=== PATIENT | female | born 1940 | race Caucasian/White ===

== ENCOUNTER 2018-02-10 09:02 | Emergency (ER) | payer OTHER, BC ==
[~2018-02-10] VITALS: Ht 167.6 cm; Wt 77.2 kg
[2018-02-10 09:05] VITALS: TEMP 36.7; Ht 167.6 cm; Wt 77.2 kg
--- NOTE | 2018-02-10 09:28 | EMERGENCY ROOM VISIT NOTE ---
History Report prepared by Kerwin: Gemma Oliver Under the Supervision of: Dr. Azael Crenshaw M.D. 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 She reports she was weeding her flower border and went to sit down on the concrete, but she misjudged her distance and sat hard on her butt. She states standing and walking worsens her pain. Pt has some left leg and left foot pain but denies hitting her head, LOC, numbness, nausea, vomiting, diarrhea, chest pain, or bleeding. She reports she has a history of severe arthritis. The patient states she cannot take any NSAIDS and does not want any opioid prescriptions. She states she took Tylenol earlier. Source of History: patient Onset: this morning Position: other (left hip) Associated Symptoms: No LOC, No chest pain, No nausea, No vomiting, No diarrhea, No numbness Note: Negative hitting her head or bleeding Review of Systems See HPI for pertinent positives and negatives. A total of ten systems were reviewed and were otherwise negative. Past Medical & Surgical Medical Problems: (1) No significant past medical history Family History No pertinent family history No pertinent family history Social History Smoking Status: Never Smoker Smokeless Tobacco Use: No Housing Status: lives alone Occupation Status: retired Current/Historical Medications Scheduled Acetaminophen (Tylenol Arthritis Ext Rel), 650 MG PO 5XD Aspirin (Aspirin 81), 81 MG PO DAILY Coenzyme Q10 (Ubidecarenone) (Co Q-10), 200 MG PO DAILY Colestipol Hcl (Colestipol Hcl), 8 GM PO BID Hydrochlorothiazide (Hydrochlorothiazide), 12.5 MG PO DAILY Losartan Potassium (Cozaar), 100 MG PO DAILY Metoprolol Tartrate (Lopressor) (Lopressor), 12.5 MG PO BID [id number] Ethyl Esters ([place]-3), 2 CAP PO DAILY Allergies Coded Allergies: NSAIDs (Unverified Allergy, Severe, EXTREME HIVES, 02/10/18) TAKES TYLENOL ARTHRITIS DAILY WITH NO ISSUES Penicillins (Unverified Adverse Reaction, Intermediate, HIVES, 02/10/18) Statins (Unverified Adverse Reaction, Unknown, UNKNOWN, 02/10/18) Physical Exam Vital Signs Date Time Temp Pulse Resp B/P (MAP) Pulse Ox O2 Delivery O2 Flow Rate FiO2 02/10/18 10:39 71 20 154/54 98 02/10/18 09:05 36.7 66 20 194/72 97 Room Air Physical Exam Physical Exam GENERAL: She is oriented to person, place, and time. She appears well- developed and well-nourished. She does not appear distressed. HENT: Exam performed. Head: Normocephalic and atraumatic. Right Ear: External ear normal. No mastoid tenderness. Left Ear: External ear normal. No mastoid tenderness. Mouth/Throat: The oropharynx is clear and moist. No trismus in the jaw. No dental abscesses or uvula swelling. No oropharyngeal exudate or tonsillar abscesses. EYES: Conjunctivae and EOM are normal. Pupils are equal, round, and reactive to light. Right eye exhibits no discharge. Left eye exhibits no discharge. No scleral icterus. NECK: Normal range of motion. Neck supple. No JVD present. No spinous process tenderness present. No carotid bruit present. No rigidity. No tracheal deviation and normal range of motion present. No Brudzinski's sign and no Kernig 's sign noted. CV: Normal rate, regular rhythm, normal heart sounds and intact distal pulses. There is no peripheral edema. Palpable radial pulses bue. PULM/CHEST: Effort normal and breath sounds normal. No respiratory distress. No stridor. She has no wheezes. She has no rales. Chest Wall: She exhibits no tenderness. ABD: The abdomen is soft. Bowel sounds are normal. She has no distension. No mass is present. There is no tenderness. There is no rebound, no guarding, no Thompson's sign and no tenderness at McBurney's point. Rovsig negative MUSC/SKEL: Normal range of motion. There is no peripheral edema or deformity. Pain on palpation of her left sacral area. Pelvis is stable. LYMPH: No cervical adenopathy. NEURO: She is alert and oriented to person, place, and time. She has normal strength. No cranial nerve deficit or sensory deficit. Coordination and gait normal. GCS eye subscore is 4. GCS verbal subscore is 5. GCS motor subscore is 6. Cerebellar tests wnl. SKIN: Skin is warm and dry. She is not diaphoretic. PSYCH: She has a normal mood and affect. Behavior is normal. Judgment and thought content normal. Medical Decision & Procedures ER Provider Diagnostic Interpretation: Radiology results as stated below per my review and radiologist interpretation: PELVIS 1 OR 2 VIEW ROUTINE CLINICAL HISTORY: fall pain COMPARISON: None. DISCUSSION: The bones and joint spaces appear intact. There is no evidence of fracture, dislocation or bony disease. Moderate generalized degenerative changes throughout. IMPRESSION: Moderate degenerative change. No acute process. The above report was generated using voice recognition software. It may contain grammatical, syntax or spelling errors. Electronically signed by: Deven Mondragon M.D. 02/10/2018 10:08 AM L-SPINE MIN 4 VIEWS ROUTINE HISTORY: Trauma. Pain. fall COMPARISON: None. FINDINGS: There is no fracture. Mild scoliosis. Severe degenerative disc change throughout. Multiple vacuum joints. IMPRESSION: Significant degenerative change. No evidence for an acute bony abnormality. The above report was generated using voice recognition software. It may contain grammatical, syntax or spelling errors. Electronically signed by: Deven Mondragon M.D. 02/10/2018 10:07 AM Medications Administered Medications (Trade) Dose Ordered Sig/Erin Route Start Time Stop Time Status Last Admin Dose Admin Tramadol HCl (Ultram Tab) 50 mg NOW STAT PO 02/10/18 10:15 02/10/18 10:16 DC 02/10/18 10:38 50 MG ED Course 0915: The patient was evaluated in room B10. A complete history and physical exam was performed. 1015: Vital signs stable. Imaging within normal limits. Ordered Tramadol HCl 50 mg PO. DISCHARGE - Plan of care discussed with patient and questions answered. The patient was given both verbal and printed discharge instructions. The patient verbalized understanding and ability to comply. The patient is to seek outpatient follow up as noted in the discharge instructions. The patient verbalized understanding and ability to comply. The patient is discharged in stable condition. The patient was instructed to return for worsening symptoms. Medical Decision Vital signs stable. Imaging within normal limits. Ordered Tramadol HCl 50 mg PO. DISCHARGE - Plan of care discussed with patient and questions answered. The patient was given both verbal and printed discharge instructions. The patient verbalized understanding and ability to comply. The patient is to seek outpatient follow up as noted in the discharge instructions. The patient verbalized understanding and ability to comply. The patient is discharged in stable condition. The patient was instructed to return for worsening symptoms. Medication Reconcilliation Current Medication List: was personally reviewed by me Blood Pressure Screening Patient's blood pressure: Elevated blood pressure Blood pressure disposition: Elevated BP felt to be situational Impression Primary Impression: Hip pain Scribe Attestation The scribe's documentation has been prepared under my direction and personally reviewed by me in its entirety. I confirm that the note above accurately reflects all work, treatment, procedures, and medical decision making performed by me. The chart was completed utilizing [employer] Speech voice recognition software. Grammatical errors, random word insertions, pronoun errors, and incomplete sentences are an occasional consequence of this system due to software limitations, ambient noise, and hardware issues. Any formal questions or concerns about the content, text, or information contained within the body of this dictation should be directly addressed to the physician for clarification. Departure Information Dispostion Home / Self-Care Referrals No Doctor, Assigned (PCP) Forms HOME CARE DOCUMENTATION FORM, IMPORTANT VISIT INFORMATION, WORK / SCHOOL INSTRUCTIONS Patient Instructions My [facility] Problem Qualifiers Primary Impression: Hip pain Laterality: left Qualified Codes: M25.552 - Pain in left hip
[2018-02-10] MEDS ORDERED: COEN1CAP37 PO (09:50)
[2018-02-10] MEDS ORDERED: COLE1TAB5 PO (09:50)
[2018-02-10] MEDS ORDERED: ASPI-435 PO (09:50)
[2018-02-10] MEDS ORDERED: HYDR12.55 PO (09:50)
[2018-02-10] MEDS ORDERED: LOSA1TAB38 PO (09:50)
[2018-02-10] MEDS ORDERED: METO25TA56 PO (09:50)
[2018-02-10] MEDS ORDERED: OMEG-112 PO (09:50)
[2018-02-10] MEDS ORDERED: ACET1TAB84 PO (09:50)
--- NOTE | 2018-02-10 10:08 | DIAGNOSTIC IMAGING REPORT ---
L-SPINE MIN 4 VIEWS ROUTINE HISTORY: Trauma. Pain. fall COMPARISON: None. FINDINGS: There is no fracture. Mild scoliosis. Severe degenerative disc change throughout. Multiple vacuum joints. IMPRESSION: Significant degenerative change. No evidence for an acute bony abnormality. The above report was generated using voice recognition software. It may contain grammatical, syntax or spelling errors. Electronically signed by: Deven Mondragon M.D. 02/10/2018 10:07 AM Dictated Date/Time: 02/10/2018 10:07 AM
--- NOTE | 2018-02-10 10:09 | DIAGNOSTIC IMAGING REPORT ---
PELVIS 1 OR 2 VIEW ROUTINE CLINICAL HISTORY: fall pain COMPARISON: None. DISCUSSION: The bones and joint spaces appear intact. There is no evidence of fracture, dislocation or bony disease. Moderate generalized degenerative changes throughout. IMPRESSION: Moderate degenerative change. No acute process. The above report was generated using voice recognition software. It may contain grammatical, syntax or spelling errors. Electronically signed by: Deven Mondragon M.D. 02/10/2018 10:08 AM Dictated Date/Time: 02/10/2018 10:07 AM
[2018-02-10] MEDS ORDERED: TRAMADOL HCL 50 MG TAB PO STA (10:15)
[2018-02-10 10:39] VITALS: BP 154/54; PULSE 71; O2SAT 98
== END 2018-02-10 10:40 | disposition home or self-care (01) ==
LOC: C.EDB 09:03
DX: M25.552 Pain in left hip (principal); Z79.82 Long term (current) use of aspirin; Z88.6 Allergy status to analgesic agent; Z88.1 Allergy status to other antibiotic agents

== ENCOUNTER 2019-08-04 14:50 | Observation (INO) ==
--- NOTE | 2019-08-04 16:13 | XRay Report ---
SINGLE VIEW CHEST CLINICAL HISTORY: Atypical chest pain. FINDINGS: An AP, portable, upright chest radiograph is obtained. No prior studies are available for c omparison at the time of dictation. The cardiomediastinal silhouette is unremarkable. There is mild elevation of left hemidiaphragm with associated atelectasis. No airspace consolidation or large pleur al effusion is identified. No pneumothorax is seen. The skeletal structures are osteopenic. The bony thorax is grossly intact. Degenerative change is noted in the shoulders and thoracic spine. IMPRESSION: No active disease in the chest. ACT 112: Negative or not required by law. Electronically signed by: Osmin Anthony M.D. 08/04/2019 4:11 PM
[2019-08-04 16:31] LABS: Basophils # (auto) 0.03 K/uL (0-0.2); Basophils % (auto) 0.4 %; Eosinophils # (auto) 0.51 K/uL (0-0.5); Eosinophils % (auto) 6.9 %; Hematocrit (blood only) 36.5 % (37-47); Hemoglobin 12.3 g/dL (12.0-16.0); Immature Granulocytes # (auto) 0.01 K/uL (0.00-0.02); Immature Granulocytes % (auto) 0.1 %; Lymphocytes # (auto) 2.07 K/uL (1.2-3.4); Mean Corpuscular Hemoglobin 32.5 pg (25-34); Mean Corpuscular Hgb Conc 33.7 g/dL (32-36); Mean Corpuscular Volume 96.6 fL (80-100); Mean Platelet Volume 9.8 fL (7.4-10.4); Monocytes # (auto) 0.41 K/uL (0.11-0.59); Monocytes % (auto) 5.6 %; Neutrophils # (auto) 4.35 K/uL (1.4-6.5); Platelet Count 226 K/uL (130-400); RDW Coefficient of Variation 13.3 % (11.5-14.5); RDW Standard Deviation 45.6 fL (36.4-46.3); Red Blood Count 3.78 M/uL (4.2-5.4); White Blood Count 7.38 K/uL (4.8-10.8)
[2019-08-04 16:45] LABS: Partial Thromboplastin Ratio 0.9; Partial Thromboplastin Time 24.2 Seconds (21.0-31.0)
--- NOTE | 2019-08-04 16:45 | Emergency Department Note ---
Entered by Nell David acting as a scribe for Alan Ruff MD History of Present Illness General Chief complaint: Shortness of Breath/Dyspnea Stated complaint: BREATHING PROBLEMS, WHEEZING Time Seen by Provider: 08/04/19 15:39 History of Present Illness Provider complaint: shortness of breath Onset (ago): week(s) 2 Pain Consistency: + other (worsening) Maximum Pain Intensity: 0 Quality: + other (shortness of breath) Associated symptoms: + denies other symptoms (body aches, pain, swelling, black or bloody stool, abdominal pain), + cough (dry hacking) and + other (pressure on chest, feels like she cannot get air into her lungs, wheezes, sometimes cannot get out of bed, runny nose); no headaches Treatments prior to arrival: none The patient is an 79 year old female who presents to the ED with complaints of worsening shortness of breath that started 2 weeks ago. The patient states that she has a pressure on chest that makes it feel like she cannot get air into her lungs. The patient states that her symptoms were so bad the other day that she could not get out of bed. The patient notes that she has a dry hacking cough, wheezes and a runny nose. The patient denies body aches, pain, swelling, black or bloody stool, headache and abdominal pain. The patient states that she did not take any medications prior to arrival. Home Medications Home Medications Medication Instructions Recorded Confirmed Type acetaminophen 500 mg tablet 500 mg PO Q8H PRN 03/14/19 08/04/19 History aspirin 81 mg tablet,delayed 81 mg PO QAM 03/14/19 08/04/19 History release cetirizine 10 mg tablet 10 mg PO BID tab 03/14/19 08/04/19 History coenzyme Q10 200 mg capsule 200 mg PO QAM 03/14/19 08/04/19 History colestipol 1 gram tablet 8 gm PO BID tab 03/14/19 08/04/19 History hydrochlorothiazide 12.5 mg tablet 12.5 mg PO QAM #90 tab 03/14/19 08/04/19 History losartan 100 mg tablet 100 mg PO QAM #90 tab 03/14/19 08/04/19 History metoprolol succinate 25 mg 12.5 mg PO BID #90 tab 03/14/19 08/04/19 History tablet,extended release 24 hr multivitamin 1 tab PO QAM 03/14/19 08/04/19 History omega-3 acid ethyl esters 1 gram 2 cap PO QAM cap 03/14/19 08/04/19 History capsule tramadol 50 mg tablet 50 mg PO Q8H PRN 03/14/19 08/04/19 History Allergies Allergy/AdvReac Type Severity Reaction Status Date / Time NSAIDS (Non-Steroidal Allergy Severe EXTREME Unverified 08/04/19 17:00 Anti-Inflamma HIVES Penicillins AdvReac Intermediate HIVES Unverified 08/04/19 17:00 [id number] Reductase AdvReac Unknown UNKNOWN Unverified 08/04/19 17:00 Inhibitor Past Med/Surg History Social History Preferred Language: Macedonian Communication Ability: Effective Beliefs That Will Affect Care: None marital status: Current Living Situation: Family Current Living Situation Comment: lives with daughter current occupational status: retired Other Information That Helps Us Care for You: No Feels Safe at Home: Yes Safety Concerns: Feels Safe At This Time Smoking Status: Never smoker Second Hand Exposure: Yes ; Hx Alcohol Use: No Hx Substance Use: No Review of Systems See HPI for pertinent positives & negatives. and A total of 10 systems reviewed and were otherwise negative Physical Exam Vital Signs Vital Signs - 24 hr 08/04/19 15:25 08/04/19 16:59 Temperature 36.9 C Temperature Source Oral Pulse Rate 53 L Pulse Rate [Right Finger] 56 L Respiratory Rate 24 18 Respiratory Depth Normal Blood Pressure 140/73 Blood Pressure [Right Arm] 148/92 H Blood Pressure Mean 95 Blood Pressure Mean [Right Arm] 110 Blood Pressure Position Sitting Pulse Oximetry 97 97 Oxygen Delivery Method Room Air Sepsis Recent Fever Within 48 Hours No Sepsis New/Unexplained Change in Mental Status No Sepsis Action Taken by Nursing No Action Required General: Non-ill appearing older female in no acute distress, intermittent dry cough. HEENT: Normal cephalic atraumatic. Pupils are equal round and reactive to light. Extraocular movements are intact. Oropharynx is pink with moist mucous membranes. No swelling of the mouth lips or tongue. Neck: Supple with a midline trachea. No meningeal signs or stiffness, no JVD or bruits. No Stridor. Chest: Clear to auscultation bilaterally. No wheezes or rhonchi. No increased work of breathing. Heart: regular rate and rhythm. Abdomen: Soft nontender, nondistended without rebound guarding or rigidity. Extremities: No cyanosis clubbing or edema. No calf tenderness or asymmetry Spine/Back. Non tender to palpation. No CVA tenderness Skin: Good turgor without rashes. Neurologic exam: Cranial nerves two through 12 are intact. Motor and sensation are intact and symmetrical throughout. Course Course 1541: Past medical records reviewed. The patient was evaluated in room C3. A complete history and physical exam was performed. 1731: I reevaluated the patient and she is resting comfortably. 1802: I discussed the patient's case with Dr. Karen WONG, Hospitalist. She will evaluate the patient for further management. Consultations Consultation #1: I discussed the patient's case with Dr. Karen WONG, Hospitalist. She will evaluate the patient for further management. Time: 18:02 Administered Medications Acetaminophen (Tylenol) 650 mg PO Q4H PRN PRN Reason: Moderate Pain Stop: 09/03/19 19:21 Last Admin: 08/04/19 20:31 Dose: 650 mg Documented by: [id number] Cetirizine HCl (Zyrtec) 5 mg PO BID [facility] Stop: 09/03/19 20:59 Last Admin: 08/04/19 21:31 Dose: 5 mg Documented by: [id number] Colestipol HCl (Colestid) 8 gm PO 1000,2200 MIKE Stop: 09/03/19 21:59 Last Admin: 08/04/19 22:38 Dose: 8 gm Documented by: [id number] Metoprolol Succinate (Toprol Xl) 12.5 mg PO BID MIKE Stop: 09/03/19 20:59 Last Admin: 08/04/19 20:32 Dose: 12.5 mg Documented by: [id number] Medical Decision Making Differential Diagnosis Differentials include bronchitis, pneumonia ,CHF, cardiac disease, medication side effect, influenza. Medical Records Attestation: I reviewed the patient's medical records. Home Medications Current Medication List: was personally reviewed by me Laboratory Data Attestation: I reviewed the patient's lab results. Result diagrams: 08/04/19 16:11 08/04/19 16:11 Lab Results 08/04/19 08/04/19 08/04/19 Range/Units 16:11 16:11 16:11 WBC 7.38 (4.8-10.8) K/uL RBC 3.78 L (4.2-5.4) M/uL Hgb 12.3 (12.0-16.0) g/dL Hct 36.5 L (37-47) % MCV 96.6 (80-100) fL MCH 32.5 (25-34) pg MCHC 33.7 (32-36) g/dL RDW Std Deviation 45.6 (36.4-46.3) fL RDW Coeff of Elvin 13.3 (11.5-14.5) % Plt Count 226 (130-400) K/uL MPV 9.8 (7.4-10.4) fL Immature Gran % (Auto) 0.1 % Neut % (Auto) 59.0 % Lymph % (Auto) 28.0 % Mclennan % (Auto) 5.6 % Eos % (Auto) 6.9 % Baso % (Auto) 0.4 % Immature Gran # (Auto) 0.01 (0.00-0.02) K/uL Neut # (Auto) 4.35 (1.4-6.5) K/uL Lymph # (Auto) 2.07 (1.2-3.4) K/uL Mclennan # (Auto) 0.41 (0.11-0.59) K/uL Eos # (Auto) 0.51 H (0-0.5) K/uL Baso # (Auto) 0.03 (0-0.2) K/uL PT 10.0 (9.0-12.0) Seconds INR 1.0 (0.9-1.1) APTT 24.2 (21.0-31.0) Seconds PTT Ratio 0.9 Sodium 140 (136-145) mmol/L Potassium 3.7 (3.5-5.1) mmol/L Chloride 111 H (98-107) mmol/L Carbon Dioxide 22 (21-32) mmol/L Anion Gap 7.0 (3-11) BUN 26 H (7-18) mg/dl Creatinine 0.96 (0.6-1.2) mg/dl Est Cr Clr Drug Dosing Not Reportable Est GFR ( Amer) 64.3 Est GFR (Non-Af Amer) 55.5 BUN/Creatinine Ratio 27.4 H (10-20) Glucose 94 (70-99) mg/dl Calcium 8.8 (8.5-10.1) mg/dl Total Bilirubin 0.3 (0.2-1) mg/dl AST 19 (15-37) U/L ALT 18 (12-78) U/L Alkaline Phosphatase 38 L (45-117) U/L Troponin I 0.121 H* (0-0.045) ng/ml NT-Pro-B Natriuret Pep 212 (0-1800) pg/ml Total Protein 7.2 (6.4-8.2) gm/dl Albumin 3.6 (3.4-5.0) gm/dl Globulin 3.6 (2.5-4.0) gm/dl Albumin/Globulin Ratio 1.0 (0.9-2) Lipase 229 (73-393) U/L Influenza Type A (PCR) (Neg) Influenza Type B (PCR) (Neg) 08/04/19 Range/Units 16:11 WBC (4.8-10.8) K/uL RBC (4.2-5.4) M/uL Hgb (12.0-16.0) g/dL Hct (37-47) % MCV (80-100) fL MCH (25-34) pg MCHC (32-36) g/dL RDW Std Deviation (36.4-46.3) fL RDW Coeff of Elvin (11.5-14.5) % Plt Count (130-400) K/uL MPV (7.4-10.4) fL Immature Gran % (Auto) % Neut % (Auto) % Lymph % (Auto) % Mclennan % (Auto) % Eos % (Auto) % Baso % (Auto) % Immature Gran # (Auto) (0.00-0.02) K/uL Neut # (Auto) (1.4-6.5) K/uL Lymph # (Auto) (1.2-3.4) K/uL Mclennan # (Auto) (0.11-0.59) K/uL Eos # (Auto) (0-0.5) K/uL Baso # (Auto) (0-0.2) K/uL PT (9.0-12.0) Seconds INR (0.9-1.1) APTT (21.0-31.0) Seconds PTT Ratio Sodium (136-145) mmol/L Potassium (3.5-5.1) mmol/L Chloride (98-107) mmol/L Carbon Dioxide (21-32) mmol/L Anion Gap (3-11) BUN (7-18) mg/dl Creatinine (0.6-1.2) mg/dl Est Cr Clr Drug Dosing Est GFR ( Amer) Est GFR (Non-Af Amer) BUN/Creatinine Ratio (10-20) Glucose (70-99) mg/dl Calcium (8.5-10.1) mg/dl Total Bilirubin (0.2-1) mg/dl AST (15-37) U/L ALT (12-78) U/L Alkaline Phosphatase (45-117) U/L Troponin I (0-0.045) ng/ml NT-Pro-B Natriuret Pep (0-1800) pg/ml Total Protein (6.4-8.2) gm/dl Albumin (3.4-5.0) gm/dl Globulin (2.5-4.0) gm/dl Albumin/Globulin Ratio (0.9-2) Lipase (73-393) U/L Influenza Type A (PCR) Neg for Influ A (Neg) Influenza Type B (PCR) Neg for Influ B (Neg) Imaging Data Radiologist's Impression: Radiology results as stated below per my review and the radiologist's interpretation: SINGLE VIEW CHEST CLINICAL HISTORY: Atypical chest pain. FINDINGS: An AP, portable, upright chest radiograph is obtained. No prior studies are available for comparison at the time of dictation. The cardiomediastinal silhouette is unremarkable. There is mild elevation of left hemidiaphragm with associated atelectasis. No airspace consolidation or large pleural effusion is identified. No pneumothorax is seen. The skeletal structures are osteopenic. The bony thorax is grossly intact. Degenerative change is noted in the shoulders and thoracic spine. IMPRESSION: No active disease in the chest. ACT 112: Negative or not required by law. Electronically signed by: Osmin Anthony M.D. 08/04/2019 4:11 PM ECG Data Attestation: I personally reviewed and interpreted this ECG as follows: Indication: + SOB/dyspnea Rate (beats per minute): 56 Rhythm: + sinus bradycardia ECG Intervals/blocks: + First degree AV block ECG ST segments: no ST depression and no ST elevation Comparison ECG Date: no prior available Blood Pressure Blood Pressure Findings: Elevated blood pressure Blood Pressure Disposition: further management by hospitalist MARIO Narrative This patient comes in as scribed above she is had a cough for a couple weeks. Not it was allergies but it persisted. She does not have any significant pulmonary history but she does have history of cardiac disease. She is had no significant swelling in her legs. She denies any fever or flulike symptoms. No nausea vomiting or diarrhea. No blood or melena stool. No achiness. EKG was obtained as well as chest x-ray multiple blood testing and blood cultures. I did a flu swab as well. Flu swab was negative. Chest x-ray is unremarkable. EKG does not show any definite acute ischemic changes or arrhythmia. She does have some sinus bradycardia. She is no acute electrolyte or metabolic abnormalities. Her troponin was mildly elevated. She has had some vague weakne ss and and had some chest pain the other day as well. I do think she should be admitted/observed. she does have a cardiac history of consulted [facility] hospitalist to see her in the ER for these measures. Impression & Plan Chest pain, Elevated troponin, Shortness of breath, Cough Discharge Plan Visit Data *Final* Discharge Date/Time: 08/04/19 18:57 Chief Complaint: Shortness of Breath/Dyspnea Stated Complaint: BREATHING PROBLEMS, WHEEZING ED Provider: Alan Ruff Discharge Problem: Chest pain, Elevated troponin, Shortness of breath, Cough Patient Disposition: Admitted As Inpatient Discharge Instructions Interventions: ED Discharge Assessment Last Done: 08/04/19 18:57 Discharge Problem: Chest pain Qualifiers: Chest pain type: unspecified Qualified Code(s): R07.9 - Chest pain, unspecified The scribe's documentation has been prepared under my direction and personally reviewed by me in its entirety. I confirm that the note above accurately reflects all work, treatment, procedures, and medical decision making performed by me.
[2019-08-04 16:51] LABS: Alanine Aminotransferase 18 U/L (12-78); Albumin Level 3.6 gm/dl (3.4-5.0); Aspartate Aminotransferase 19 U/L (15-37); BUN Creatinine Ratio 27.4 (10-20); Blood Urea Nitrogen 26 mg/dl (7-18); Calcium 8.8 mg/dl (8.5-10.1); Carbon Dioxide 22 mmol/L (21-32); Chloride 111 mmol/L (98-107); Est GFR (African American) 64.3; Est GFR (Non-African American) 55.5; Glucose 94 mg/dl (70-99); Lipase 229 U/L (73-393); Potassium 3.7 mmol/L (3.5-5.1); Sodium 140 mmol/L (136-145)
[2019-08-04 17:06] LABS: Influenza A virus by PCR Neg for Influ A (Neg); Influenza B virus by PCR Neg for Influ B (Neg)
[2019-08-04 17:09] LABS: Alkaline Phosphatase 38 U/L (45-117); Bilirubin,Total 0.3 mg/dl (0.2-1); Globulin 3.6 gm/dl (2.5-4.0); NT Pro B Type Natriuretic Pept 212 pg/ml (0-1800); Total Protein 7.2 gm/dl (6.4-8.2); Troponin I 0.121 ng/ml (0-0.045)
--- NOTE | 2019-08-04 17:56 | History & Physical Report ---
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 s/p one cardiac stent, follows with Chaitanya Martinez as an outpatient and has a routine appt scheduled for Aug 16 already - Check 2 D echo - PT/OT consulted (3) CAD (coronary artery disease): (4) Stented coronary artery: (5) Hypertension: -Continue ASA 81 mg daily, HCTZ 12.5 daily, losartan 100 mg daily, metoprolol succinate 12.5 mg BID -Follows with [facility] as above, consider consultation (6) Hyperlipidemia: - Cont Coenzyme Q10, omega 3, colestipol (7) Arthritis: - Continue tramadol 50 mg Q8H prn for pain - PT/OT consults (8) Seasonal allergies: - Certrizine (9) DVT prophylaxis: -Lovenox sub q CODE STATUS: Full code Disposition: Patient from home, likely to remain in the hospital x1 day History of Present Illness Primary Care Provider: JOHN Herrera This is an 79-year-old female with past medical history of HTN, HLD, CAD status post MS October 2016 with one cardiac stent, seasonal allergies, osteoarthritis, chronic low back pain, presents due to increased weakness, shortness of breath and chest pressure. Patient's daughter is present at bedside and supports the history. The patient notes that she had a rough day yesterday, felt generalized weakness, was achy, and thought that this was due to chronic seasonal allergies. This morning she had difficulty getting out of bed due to weakness and fatigue, she also reports a chest heaviness/pressure which is now resolved, she denies any specific stabbing chest pain, shortness of breath, exertional dyspnea, but admits to some lightheadedness from going from a sitting to standing position. She has been eating and drinking well. Patient has been taking all her normally scheduled medications as prescribed. Troponin elevated at 0.121, EKG is sinus bradycardia, without ST wave changes or ischemia. Allergies Allergy/AdvReac Type Severity Reaction Status Date / Time NSAIDS (Non-Steroidal Allergy Severe EXTREME Unverified 08/04/19 17:00 Anti-Inflamma HIVES Penicillins AdvReac Intermediate HIVES Unverified 08/04/19 17:00 Uljgthl-Uud-Cvg Reductase AdvReac Unknown UNKNOWN Unverified 08/04/19 17:00 Inhibitor Home Medications Home Medications Medication Instructions Recorded Confirmed Type acetaminophen 500 mg tablet 500 mg PO Q8H PRN 03/14/19 08/04/19 History aspirin 81 mg tablet,delayed 81 mg PO QAM 03/14/19 08/04/19 History release cetirizine 10 mg tablet 10 mg PO BID tab 03/14/19 08/04/19 History coenzyme Q10 200 mg capsule 200 mg PO QAM 03/14/19 08/04/19 History colestipol 1 gram tablet 8 gm PO BID tab 03/14/19 08/04/19 History hydrochlorothiazide 12.5 mg tablet 12.5 mg PO QAM #90 tab 03/14/19 08/04/19 History losartan 100 mg tablet 100 mg PO QAM #90 tab 03/14/19 08/04/19 History metoprolol succinate 25 mg 12.5 mg PO BID #90 tab 03/14/19 08/04/19 History tablet,extended release 24 hr multivitamin 1 tab PO QAM 03/14/19 08/04/19 History omega-3 acid ethyl esters 1 gram 2 cap PO QAM cap 03/14/19 08/04/19 History capsule tramadol 50 mg tablet 50 mg PO Q8H PRN 03/14/19 08/04/19 History Past Med/Surg History Social History Preferred Language: Indonesian Communication Ability: Effective Beliefs That Will Affect Care: None marital status: Current Living Situation: Family Current Living Situation Comment: lives with daughter current occupational status: retired Other Information That Helps Us Care for You: No Feels Safe at Home: Yes Safety Concerns: Feels Safe At This Time Smoking Status: Never smoker Second Hand Exposure: Yes ; Hx Alcohol Use: No Hx Substance Use: No Review of Systems Review of Systems: Constitutional: No fever, sweats or chills, + generalized weakness as per HPI. Eyes: No diplopia, no worsening or blurred vision ENT: normal hearing, no trouble swallowing Respiratory: No sputum, dyspnea at rest or on exertion, + seasonal allergies with chronic cough Cardiovascular: No chest pain, tightness or palpitations Abdomen: No pain, nausea, vomiting, diarrhea or constipation Musculoskeletal: No joint pain, calf pain, swelling Neurologic: No weakness, numbness/tingling, or balance problems Psychiatric: No anxiety or depression Skin: No rash or itch Physical Exam Physical Exam: General: awake, alert, no apparent distress Head: Normocephalic, atraumatic ENT: PERRL, EOMI, no pharyngeal exudate, mucous membranes moist Chest: Clear to auscultation, on room air, no adventitious breath sounds Cardiac: NSR, HR in 50s, no murmur, no JVD, normal peripheral pulses, good capillary refill Abdominal: NABS x 4 quadrants, soft, nondistended, nontender to palpation, no rebound, guarding or tenderness Extremities: Normal inspection, no peripheral edema or erythema, calfs nontender to palpation Psych: Normal mood and affect Neuro: AAO x 3, strength intact bilaterally and related 5/5, no motor deficits, speech is clear, no peripheral sensory deficits Results & Data Vital Signs (Past 12 Hours) Vital Signs Temp Pulse Pulse Resp BP BP Pulse Ox 08/04/19 16:59 56 L 18 148/92 H 97 08/04/19 15:25 36.9 C 53 L 24 140/73 97 Diagnostic Findings SINGLE VIEW CHEST CLINICAL HISTORY: Atypical chest pain. FINDINGS: An AP, portable, upright chest radiograph is obtained. No prior studies are available for comparison at the time of dictation. The cardiomediastinal silhouette is unremarkable. There is mild elevation of left hemidiaphragm with associated atelectasis. No airspace consolidation or large pleural effusion is identified. No pneumothorax is seen. The skeletal structures are osteopenic. The bony thorax is grossly intact. Degenerative change is noted in the shoulders and thoracic spine. IMPRESSION: No active disease in the chest. ACT 112: Negative or not required by law. Electronically signed by: Osmin Anthony M.D. 08/04/2019 4:11 PM ECG Additional Comments: 04-AUG-2019 16:56:00 [facility]-EDSTAT ROUTINE RETRIEVAL Sinus bradycardia with sinus arrhythmia with 1st degree A-V block Otherwise normal ECG No previous ECGs available 25mm/s 10mm/mV 150Hz 9.0.9 12SL 241 CANDELARIO: 11 Referred by: REFERRED SELF Unconfirmed Vent. rate 56 BPM VT interval 248 ms QRS duration 90 ms QT/QTc 398/384 ms P-R-T axes 47 27 64 Code Status & VTE Plan Code Status Full code-discussed with the patient and family at bedside Supervising Physician Co-Signing Physician Notes Patient seen and examined, chart reviewed, case discussed with [facility] and I agree with her assessment and plan as documented above. Briefly, patient is an 79yo C female with HTN/HLP/CAD s/p MS presenting with weakness/SoB and lightheadedness. Troponin mildly elevated at 0.121. Patient admitted to an episode of chest pain a few days ago - she did not speak of this earlier when her daughter was in the room with her. She states she was sitting down and had sudden onset of left sided chest discomfort that radiated to her shoulder/arm and neck. Pain resolved after a few minutes No CP now On exam she is afebrile, HD stable, NAD Skin - no rash HEENT - NC/AT, PERRL, MMM, Neck supple Heart - +S1/S2, regular, no m/r/g Lungs - CTA Abd - +BS, soft, NT/ND Ext - warm, well perfused, no clubbing/cyanosis/edema Labs and images reviewed. Trop =0.121 --> 0.139 EKG with sinus bradycardia with first degree AV block. No acute ischemic changes Assessment/Plan - 79yo C female with history of HTN/HLP/CAD with prior MS presenting with PICKERING/SOB and weakness, episode of chest pain, elevated troponin. Presently CP free -Admit with telemetry -Trend cardiac enzymes -Check 2D echo in AM -Continue ASA, Metoprolol, Colestipol/CoQ10 (pt is allergic to statins) and Losartan -Remainder of plan as above PG Care Time/CCT Total # of Minutes Spent Total Time Spent with Patient: Total time spent is greater than 50% in coordination of care (as documented) at patient's floor/unit and/or counseling patient: Coding Level of Care Code 77497 OBS Care - Level 3 Diagnoses Chest pain R07.9 Chest pain type: unspecified Elevated troponin R79.89 CAD (coronary artery disease) I25.10 Stented coronary artery Z95.5 Hypertension I10 Hyperlipidemia E78.5 Arthritis M19.90 Seasonal allergies J30.2 DVT prophylaxis Z29.9 (1) Chest pain Chest pain type: unspecified Qualified Code(s): R07.9 - Chest pain, unspecified
[2019-08-04] MEDS ORDERED: INFLUENZA ADMINISTRATION CHARGE ONE (18:11)
[2019-08-04] MEDS ORDERED: INFLUENZA VACCINE HIGH DOSE 65+ 0.5 ML SYR IM ONE (18:11)
[2019-08-04] MEDS ORDERED: ONDANSETRON INJ 2 MG/ML 2 ML VIAL IV PRN (19:22)
[2019-08-04] MEDS ORDERED: ACETAMINOPHEN 500 MG TAB PO PRN (19:22)
[2019-08-04] MEDS ORDERED: TRAMADOL HCL 50 MG TABLET PO PRN (19:22)
[2019-08-04] MEDS ORDERED: PATIENT'S HEIGHT AND/OR WEIGHT NEEDED SCH (20:00)
[2019-08-04] MEDS: ACETAMINOPHEN 325 MG TAB PO PRN (20:31)
[2019-08-04] MEDS: METOPROLOL SUCC 25MG EXT REL TAB PO SCH (20:32)
[2019-08-04] MEDS: CETIRIZINE HCL 10 MG TABLET PO SCH (21:31)
[2019-08-04] MEDS: COLESTIPOL HCL 1 GM TAB PO SCH (22:38)
[2019-08-05 06:38] LABS: Hematocrit (blood only) 33.3 % (37-47); Hemoglobin 11.2 g/dL (12.0-16.0); Mean Corpuscular Hemoglobin 32.4 pg (25-34); Mean Corpuscular Hgb Conc 33.6 g/dL (32-36); Mean Corpuscular Volume 96.2 fL (80-100); Mean Platelet Volume 9.9 fL (7.4-10.4); Platelet Count 201 K/uL (130-400); RDW Coefficient of Variation 13.3 % (11.5-14.5); RDW Standard Deviation 46.4 fL (36.4-46.3); Red Blood Count 3.46 M/uL (4.2-5.4); White Blood Count 6.87 K/uL (4.8-10.8)
[2019-08-05 07:04] LABS: Albumin Level 3.3 gm/dl (3.4-5.0); BUN Creatinine Ratio 26.6 (10-20); Calcium 8.8 mg/dl (8.5-10.1); Creatinine Clr Calc Pharmacy 50.7 ml/min; Est GFR (African American) 63.5; Est GFR (Non-African American) 54.8; Potassium 3.8 mmol/L (3.5-5.1)
[2019-08-05 07:19] LABS: Albumin Globulin Ratio 1.1 (0.9-2); Bilirubin,Total 0.4 mg/dl (0.2-1); Globulin 3.1 gm/dl (2.5-4.0); Total Protein 6.4 gm/dl (6.4-8.2); Troponin I 0.13 ng/ml (0-0.045)
[2019-08-05] MEDS: OMEGA-3 (PURIFIED FISH OIL) 1 GM CAP PO SCH (07:58)
[2019-08-05] MEDS: METOPROLOL SUCC 25MG EXT REL TAB PO SCH ×2 (07:58→20:03)
[2019-08-05] MEDS: hydroCHLOROthiazide 25 MG TAB PO SCH (07:59)
[2019-08-05] MEDS: LOSARTAN POTASSIUM 50 MG TAB PO SCH (07:59)
[2019-08-05] MEDS: CETIRIZINE HCL 10 MG TABLET PO SCH ×2 (07:59→20:04)
[2019-08-05] MEDS: ASPIRIN 81 MG ECTAB PO SCH (07:59)
[2019-08-05] MEDS: MULTIVITAMIN TAB PO SCH (07:59)
[2019-08-05] MEDS: ENOXAPARIN INJ 40 MG/0.4 ML SYR SQ SCH (08:00)
[2019-08-05] MEDS: ACETAMINOPHEN 325 MG TAB PO PRN (08:04)
[2019-08-05] MEDS ORDERED: NON-FORMULARY MEDICATION (Coenzyme Q10 [Co Q-10] 200 MG) PO SCH (09:00)
[2019-08-05] MEDS: COLESTIPOL HCL 1 GM TAB PO SCH ×2 (09:58→21:28)
--- NOTE | 2019-08-05 15:58 | XCELERA ---
[id number] \\[email or web address]\[id number]_[id number]
[2019-08-05] MEDS ORDERED: ALBUTEROL 0.5% NEB SOLN 2.5 MG/0.5 ML VIAL NEB PRN (16:58)
--- NOTE | 2019-08-05 17:54 | Hospitalist Progress Note ---
Date of Service August 05, 2019 Assessment & Plan (1) Chest pain: 79-year-old female with history of hypertension, hyperlipidemia, CAD status post stent October 2016 presents with ongoing shortness of breath and anginal symptoms. Chest pain/SOB Troponin peaked at 0.139, EKG showed bradycardia with first-degree AV block , echo was unremarkable for impaired systolic function or signs of wall motion abnormalities Considering history of CAD and a story convincing for unstable angina, consulting cardiology for further evaluation Consider stress test versus cardiac catheterization Hypertension/HLD/CAD Continue metoprolol, hydrochlorothiazide, losartan, colestipol, coenzyme 10 Patient is statin intolerant DVT prophylaxis Lovenox CODE STATUS Full Disposition Continue monitoring on telemetry (2) Elevated troponin: (3) Shortness of breath: (4) Cough: (5) Stented coronary artery: (6) CAD (coronary artery disease): (7) Hyperlipidemia: (8) Hypertension: Supervising Physician Co-Signing Physician Notes Patient seen and examined with PGY-3 Dr. Mau Stafford. Agree with history, exam findings, assessment and plan of care as outlined: In brief, Ms. Lancaster is an 79 year old female with history of CAD s/p PCI (followed by Chaitanya Martinez), HTN, seasonal allergies, arthritis/scoliosis admitted for progressive cough, dyspnea on exertion. Noted that she had an episode of left sided chest pain that radiated down the left arm and up to the left jawline while she was watching TV earlier this week. The episode lasted several minutes and self resolved. Her daughter brought her in mostly due to cough and progressive PICKERING. She continues to be chest pain free. Cardiac exam unremarkable. Lungs with very faint end exp wheeze, scattered. Chest pain episode earlier this week concerning for unstable angina. has not recurred. Wonder if her progressive dyspnea with exertion may be an anginal equivalent? Echo done today with persevered ejection fraction, no wall motion abnormalities, mild concentric LVH and mild right ventricular systolic pressure elevation. Troponin 0.121-->0.139-->0.130. EKG with sinus giselle and first degree AV block, without ischemic changes. Might consider decreasing beta aristeo dosage, but would like cardiology opinion as well. continue home ASA, met oprolol, losartan and colestipol (statin intolerance--had leg pain with multiple statins). hx of wheezing ?reactive airway issue. Tried albuterol at home which was helpful. Albuterol neb q6h prn. At discharge, if albuterol is continued, recommend inhaler with spacer for better drug delivery as well as ease of use. Dispo: pending cardiology consultation Subjective Patient is asymptomatic this morning. States that if she walks upstairs she will come dyspneic. This been ongoing for the past couple months and has been getting progressively worse. She did have an episode of anginal symptoms last Tuesday. She describes chest pressure on the left side with the pain radiating into her left jaw and down her left arm. She was sitting at this time. She describes the pain lasted approximately 15 to 20 minutes. Review of Systems Review of Systems: All systems reviewed & are unremarkable except as noted in HPI & below Physical Exam Constitutional: WD/WN, vitals as above Eyes: PERRL, conjunctivae normal, anicteric sclerae ENMT: external ear and nose normal, oropharynx normal Neck: trachea midline, no thyromegaly Respiratory: normal respiratory effort, lungs clear to auscultation Cardiovascular: RRR, no murmur, no edema Gastrointestinal (Abdomen): normal bowel sounds, soft, nontender, no hepatosplenomegaly Musculoskeletal: no cyanosis or clubbing, extremities motor strength 5/5 +1 bilateral lower extremity edema Skin: no rashes, warm and dry Neurologic: PERRL, EOMI, accommodation nl, no face palsy, no dysarthria Results & Data ([facility]) Vital Signs (Past 12 Hours) Vital Signs Temp Pulse Resp BP BP Pulse Ox 08/05/19 15:39 36.7 C 62 18 137/80 96 08/05/19 12:00 36.4 C L 55 L 18 146/74 H 94 08/05/19 08:04 36.3 C L 62 18 157/75 H 98 Resident Activity Tracking Resident Involvement: Resident Care Provided Care Provided: Adult Hospital Medicine (1) Chest pain Chest pain type: unspecified Qualified Code(s): R07.9 - Chest pain, unspecified
--- NOTE | 2019-08-05 21:38 | Electrocardiogram Report ---
Test Reason : Blood Pressure : / mmHG Vent. Rate : 056 BPM Atrial Rate : 056 BPM P-R Int : 248 ms QRS Dur : 090 ms QT Int : 398 ms P-R-T Axes : 047 027 064 degrees QTc Int : 384 ms Sinus bradycardia with sinus arrhythmia with 1st degree A-V block Otherwise normal ECG No previous ECGs available Confirmed by Wu Kwong ([id number]) on 08/05/2019 9:37:59 PM Referred By: REFERRED SELF Confirmed By:Wu Kwong
[2019-08-06 07:03] LABS: Hematocrit (blood only) 34.5 % (37-47); Hemoglobin 11.7 g/dL (12.0-16.0); Mean Corpuscular Hemoglobin 32.5 pg (25-34); Mean Corpuscular Hgb Conc 33.9 g/dL (32-36); Mean Corpuscular Volume 95.8 fL (80-100); Mean Platelet Volume 9.4 fL (7.4-10.4); Platelet Count 192 K/uL (130-400); RDW Coefficient of Variation 13.2 % (11.5-14.5); RDW Standard Deviation 46.2 fL (36.4-46.3); White Blood Count 6.58 K/uL (4.8-10.8)
[2019-08-06 07:38] LABS: Albumin Level 3.3 gm/dl (3.4-5.0); BUN Creatinine Ratio 24.4 (10-20); Calcium 8.7 mg/dl (8.5-10.1); Creatinine Clr Calc Pharmacy 45.8 ml/min; Est GFR (African American) 56.4; Est GFR (Non-African American) 48.6; Potassium 3.7 mmol/L (3.5-5.1)
[2019-08-06 07:41] LABS: Bilirubin,Total 0.4 mg/dl (0.2-1); Globulin 3.4 gm/dl (2.5-4.0); Total Protein 6.7 gm/dl (6.4-8.2)
[2019-08-06] MEDS: OMEGA-3 (PURIFIED FISH OIL) 1 GM CAP PO SCH (08:35)
[2019-08-06] MEDS: CETIRIZINE HCL 10 MG TABLET PO SCH (08:35)
[2019-08-06] MEDS: LOSARTAN POTASSIUM 50 MG TAB PO SCH (08:35)
[2019-08-06] MEDS: METOPROLOL SUCC 25MG EXT REL TAB PO SCH (08:35)
[2019-08-06] MEDS: MULTIVITAMIN TAB PO SCH (08:35)
[2019-08-06] MEDS: ASPIRIN 81 MG ECTAB PO SCH (08:35)
[2019-08-06] MEDS: hydroCHLOROthiazide 25 MG TAB PO SCH (08:36)
[2019-08-06] MEDS: ENOXAPARIN INJ 40 MG/0.4 ML SYR SQ SCH (08:37)
--- NOTE | 2019-08-06 09:26 | Cardiology Consultation ---
Date of Consultation August 06, 2019 Assessment & Plan (1) Elevated troponin: Mrs. Lancaster is an 79-year-old female with a history of CAD s/p NSTEMI s/p D1 DEWAYNE 10/20/2016 (Normal LV Systolic Function), Dyslipidemia, Hypertension, Mild Anemia, Spinal Stenosis, and Osteoarthritis who was admitted to [facility] on 08/04/2019 with a Cough and Increasing PICKERING / SOB which is likely related to reactive airway disease / underlying asthma -- these symptoms are improving since being hospitalized and treated. Patient also has an Elevated Troponin I level which likely represents demand ischemia secondary to acute illness, hypertension, and LVH. This past Tuesday she had an episode of left sided chest tightness that is described as "very mild" and she felt that it may have radiated to her left arm and neck which lasted for a few minutes and then resolved. It was not reminiscent of her angina that she previously experienced with her NSTEMI. Recommend ongoing medical management including the following: -- Metoprolol Succinate ER 12.5 mg b.i.d.. -- Losartan 100 mg daily. -- Aspirin 81 mg daily. -- Recommend initiating Repatha 140 mg SQ injection every 2 weeks - will need to make sure that her insurance covers this medication. -- Colestipol 8 grams b.i.d.. -- CoQ10 200 mg daily. -- Fish Oil Capsules 2000 mg daily. -- Hydrochlorothiazide 12.5 mg daily. -- Ambulate in hallway and assess for any anginal symptoms. -- If no angina pectoris - patient is stable for discharge too home from a cardiac standpoint. -- Keep appointment with me on 08/16/2019. Present on Admission?: Yes (2) CAD (coronary artery disease): -- As outlined above. Present on Admission?: Yes (3) Stented coronary artery: -- As outlined above. Present on Admission?: Yes (4) Hypertension: -- BP's have improved and her BP is acceptable currently. -- Continue anti-hypertensive regimen as outlined above. -- Maintain a low sodium, heart healthy diet. Present on Admission?: Yes (5) Hyperlipidemia: -- Recommend starting Repatha 140 mg subcutaneous injection every 2 weeks but we need to make sure her insurance covers Repatha. Present on Admission?: Yes (6) Shortness of breath: Appears to be secondary to Reactive Airway Disease / Asthma. -- Continue management as per hospitalist service. Thank you for asking us to see this patient in consultation. Patient will keep her 08/16/2019 appointment with me as previously scheduled. Present on Admission?: Yes Supervising Physician Co-Signing Physician Notes Nathaniel Snow MD History of Present Illness Requesting Physician: Daniel Holden DO Attending Physician: Nathaniel Snow MD History of Present Illness Mrs. Lancaster is an 79-year-old female with a history of CAD s/p NSTEMI s/p D1 DEWAYNE 10/20/2016 (Normal LV Systolic Function), Dyslipidemia, Hypertension, Mild Anemia, Spinal Stenosis, and Osteoarthritis who was admitted to [facility] on 08/04/2019 with a Cough and Increasing PICKERING / SOB. Patient states that she develops a cough every fall which typically remains at a low level through the fall and winter -- however in June her cough started to worsen. Approximately 3 weeks ago patient had a worsening cough, increasing SOB/ PICKERING, and wheezing. This past Tuesday patient had an episode of left sided chest tightness that is described as "very mild" and she felt that it may have radiated to her left arm and neck which lasted for a few minutes and then resolved. She denies any associated nausea, vomiting, or diaphoresis. It was not reminiscent of her angina that she experienced with her NSTEMI. She specifically denies any of her angina pectoris at rest or with exertion. She further denies any recent exertional neck, jaw, back, or arm pain. She continues to experience intermittent wheezing, but that and her SOB/PICKERING have improved significantly since being admitted. She denies any orthopnea, PND, palpitations, syncope, or near syncope. Additionally the patient was hypertensive at times throughout this hospitalization. Her Troponin I levels are mildly elevated at 0.130, 0.139, 0.121 ng/ml. Patient's EKG's show no acute changes, and Echocardiogram shows mild concentric LVH with normal LV wall motion and systolic function. Patient has tried several statins but does not tolerate them due to myalgias. Historically -- PCSK-9 inhibitors have been cost prohibitive -- but we should try again to see if her insurance will cover one of these medications now. HISTORICAL BACKGROUND: Patient's cardiac history dates back to October 2016 when she developed a dull ache in her lower chest which did not radiate and was without associated symptoms lasting off and on for an hour or two. She went to see her PCP who summoned EMS and she was subsequently evaluated at her local hospital. She was diagnosed with an NSTEMI and underwent a CARDIAC CATHETERIZATION on 10/20/2016 which demonstrated: -- LMCA -- No significant disease. -- LAD -- No significant disease. -- D1 -- 80% Stenosis. -- LCx, OM1, OM2 -- No significant disease. -- RCA -- Dominant vessel, 50% mid vessel stenosis. -- R PDA -- No significant disease. -- R VAISHNAVI -- 60% Ostial stenosis. -- LVEF -- 45% to 50%, basal anterior wall motion abnormality. PCI 10/20/2016: -- DEWAYNE deployed in D1. No complications. Subsequent Echocardiogram 01/17/2017: -- Normal LV size and systolic function. -- LVEF 65%, No RWMA's. -- Grade I LV diastolic dysfunction. -- Mild tricuspid regurgitation -- Mild pulmonary hypertension. -- Normal RV size and systolic function. Allergies Allergy/AdvReac Type Severity Reaction Status Date / Time NSAIDS (Non-Steroidal Allergy Severe EXTREME Unverified 08/04/19 17:00 Anti-Inflamma HIVES Penicillins AdvReac Intermediate HIVES Unverified 08/04/19 17:00 Vkumesa-Sln-Mlv Reductase AdvReac Unknown UNKNOWN Unverified 08/04/19 17:00 Inhibitor Home Medications Home Medications Medication Instructions Recorded Confirmed Type acetaminophen 500 mg tablet 500 mg PO Q8H PRN 03/14/19 08/04/19 History aspirin 81 mg tablet,delayed 81 mg PO QAM 03/14/19 08/04/19 History release cetirizine 10 mg tablet 10 mg PO BID tab 03/14/19 08/04/19 History coenzyme Q10 200 mg capsule 200 mg PO QAM 03/14/19 08/04/19 History colestipol 1 gram tablet 8 gm PO BID tab 03/14/19 08/04/19 History hydrochlorothiazide 12.5 mg tablet 12.5 mg PO QAM #90 tab 03/14/19 08/04/19 History losartan 100 mg tablet 100 mg PO QAM #90 tab 03/14/19 08/04/19 History metoprolol succinate 25 mg 12.5 mg PO BID #90 tab 03/14/19 08/04/19 History tablet,extended release 24 hr multivitamin 1 tab PO QAM 03/14/19 08/04/19 History omega-3 acid ethyl esters 1 gram 2 cap PO QAM cap 03/14/19 08/04/19 History capsule tramadol 50 mg tablet 50 mg PO Q8H PRN 03/14/19 08/04/19 History Patient History Medical History Acid reflux (Chronic) Arthritis (Acute) CAD (coronary artery disease) (Chronic) Ectopic heartbeats (Acute) High risk medication use (Chronic) Hyperlipidemia (Chronic) Hypertension (Chronic) Lumbar canal stenosis (Chronic) Surgical History H/O knee surgery Hx of tonsillectomy Stented coronary artery Family History Mother Cardiac abnormality Gallbladder disease Hypertension Stroke Father Cardiac abnormality Myocardial infarction Grandmother (Maternal) Diabetes Grandfather (Maternal) Diabetes Grandfather (Paternal) Kidney disease Aunt Breast cancer Colorectal cancer Ovarian cancer Social History Preferred Language: Libyan Communication Ability: Effective Beliefs That Will Affect Care: None marital status: Current Living Situation: Family Current Living Situation Comment: lives with daughter current occupational status: retired Other Information That Helps Us Care for You: No Feels Safe at Home: Yes Safety Concerns: Feels Safe At This Time Smoking Status: Never smoker Second Hand Exposure: Yes ; Hx Alcohol Use: No Hx Substance Use: No Physical Exam Physical Exam: General: Patient in no acute distress. HEENT: Head is atraumatic, normocephalic. EOMs intact. Sclerae anicteric. Facies symmetric. No perioral cyanosis. Neck: No JVD. Carotid upstrokes +2 bilaterally without bruits. JVP is at the level of the clavicle sitting upright. Chest and Lungs: Mildly diminished breath sounds throughout, late expiratory wheezes noted on forced exhalation. CVS: S1 and S2 are regular with occasional ectopy. No obvious murmurs, gallops, or rubs. PMI is nondisplaced. No lifts, heaves, or thrills. No abdominal aortic or renal bruits. Abdominal Exam: Bowel sounds present. No masses, organomegaly, or tenderness. Extremities: No clubbing, cyanosis, or edema. Intact posterior tibial and radial pulses bilaterally. Neurologic Exam: Patient is awake, alert, and oriented. Pleasant and cooperative. Answers questions appropriately. Speech is clear. Normal movement in all 4 extremities. Gait pattern was not assessed. EKG 08/04/2019: -- Sinus bradycardia at 56 bpm with a 1st degree AV block. -- Compared to 01/26/2017 -- sinus bradycardia has replaced normal sinus rhythm. ECHOCARDIOGRAM 08/05/2019: -- LVEF 60% to 65%, no regional wall motion abnormalities. -- Mild concentric LVH. -- Mildly elevated RVSP. -- Aortic valve sclerosis without stenosis. Results & Data Vital Signs (Past 12 Hours) Vital Signs Temp Pulse Pulse Resp BP Pulse Ox 08/06/19 07:14 36.3 C L 53 L 18 128/68 93 08/06/19 03:01 36.4 C L 72 17 93/59 L 95 08/05/19 23:39 68 08/05/19 23:07 36.5 C 68 18 101/61 97 Laboratory Results Laboratory Results - last 24 hr 08/06/19 08/06/19 06:50 06:50 WBC 6.58 RBC 3.60 L Hgb 11.7 L Hct 34.5 L MCV 95.8 MCH 32.5 MCHC 33.9 RDW Std Deviation 46.2 RDW Coeff of Elvin 13.2 Plt Count 192 MPV 9.4 Sodium 139 Potassium 3.7 Chloride 110 H Carbon Dioxide 22 Anion Gap 7.0 BUN 26 H Creatinine 1.07 Est Cr Clr Drug Dosing 45.8 Est GFR ( Amer) 56.4 Est GFR (Non-Af Amer) 48.6 BUN/Creatinine Ratio 24.4 H Glucose 90 Calcium 8.7 Total Bilirubin 0.4 AST 16 ALT 17 Alkaline Phosphatase 38 L Total Protein 6.7 Albumin 3.3 L Globulin 3.4 Albumin/Globulin Ratio 1.0 Medications Administered Active Medications Generic Name Dose Route Start Last Admin Trade Name Freq PRN Reason Stop Dose Admin Acetaminophen 650 mg 08/04/19 19:22 08/05/19 08:04 Tylenol PO 09/03/19 19:21 650 mg Q4H PRN Administration Moderate Pain Albuterol 2.5 mg 08/05/19 16:58 Ventolin 0.5% 2.5mg/0.5ml NEB 09/04/19 16:59 Q6H PRN Wheezing Aspirin 81 mg 08/05/19 09:00 08/06/19 08:35 Ecotrin Ectab PO 09/04/19 08:59 81 mg QAM MIKE Administration Cetirizine HCl 5 mg 08/04/19 21:00 08/06/19 08:35 Zyrtec PO 09/03/19 20:59 5 mg BID MIKE Administration Colestipol HCl 8 gm 08/04/19 22:00 08/05/19 21:28 Colestid PO 09/03/19 21:59 8 gm 1000,2200 MIKE Administration Enoxaparin Sodium 40 mg 08/05/19 09:00 08/06/19 08:37 Lovenox SQ 09/04/19 08:59 Not Given QAM MIKE Fish Oil 2 gm 08/05/19 09:00 08/06/19 08:35 Zirconia-3 (Purified Fish Oil) PO 09/04/19 08:59 2 gm QAM MIKE Administration Hydrochlorothiazide 12.5 mg 08/05/19 09:00 08/06/19 08:36 Hctz PO 09/04/19 08:59 12.5 mg QAM MIEK Administration Losartan Potassium 100 mg 08/05/19 09:00 08/06/19 08:35 Cozaar PO 09/04/19 08:59 100 mg QAM MIKE Administration Metoprolol Succinate 12.5 mg 08/04/19 21:00 08/06/19 08:35 Toprol Xl PO 09/03/19 20:59 12.5 mg BID MIKE Administration Multivitamins 1 tab 08/05/19 09:00 08/06/19 08:35 Multivitamin Tab PO 09/04/19 08:59 1 tab QAM MIKE Administration Ondansetron HCl 4 mg 08/04/19 19:22 Zofran IV 09/03/19 19:21 Q4H PRN Nausea And Vomiting Tramadol HCl 50 mg 08/04/19 19:22 Ultram PO 09/03/19 19:21 Q8H PRN Back Pain PG Care Time/CCT Total # of Minutes Spent Total Time Spent with Patient: Total time spent is greater than 50% in coordination of care (as documented) at patient's floor/unit and/or counseling patient: Coding Level of Care Code 92908 Initial Inpt Care Lvl 3 Diagnoses Elevated troponin R79.89 CAD (coronary artery disease) I25.10 Stented coronary artery Z95.5 Hypertension I10 Hyperlipidemia E78.5 Shortness of breath R06.02
[2019-08-06] MEDS: COLESTIPOL HCL 1 GM TAB PO SCH (09:45)
--- NOTE | 2019-08-06 13:22 | Discharge Summary ---
Date of Service August 06, 2019 Admission HPI Per Admitting Provider This is an 79-year-old female with past medical history of HTN, HLD, CAD status post AR October 2016 with one cardiac stent, seasonal allergies, osteoarthritis, chronic low back pain, presents due to increased weakness, shortness of breath and chest pressure. Patient's daughter is present at bedside and supports the history. The patient notes that she had a rough day yesterday, felt generalized weakness, was achy, and thought that this was due to chronic seasonal allergies. This morning she had difficulty getting out of bed due to weakness and fatigue, she also reports a chest heaviness/pressure which is now resolved, she denies any specific stabbing chest pain, shortness of breath, exertional dyspnea, but admits to some lightheadedness from going from a sitting to standing position. She has been eating and drinking well. Patient has been taking all her normally scheduled medications as prescribed. Troponin elevated at 0.121, EKG is sinus bradycardia, without ST wave changes or ischemia. Admission Exam Per Admitting Provider General: awake, alert, no apparent distress Head: Normocephalic, atraumatic ENT: PERRL, EOMI, no pharyngeal exudate, mucous membranes moist Chest: Clear to auscultation, on room air, no adventitious breath sounds Cardiac: NSR, HR in 50s, no murmur, no JVD, normal peripheral pulses, good ca pillary refill Abdominal: NABS x 4 quadrants, soft, nondistended, nontender to palpation, no rebound, guarding or tenderness Extremities: Normal inspection, no peripheral edema or erythema, calfs nontender to palpation Psych: Normal mood and affect Neuro: AAO x 3, strength intact bilaterally and related 5/5, no motor deficits, speech is clear, no peripheral sensory deficits Principal Diagnosis chest pain - multifactorial Discharge Exam General: A&Ox3. NAD. Cooperative. HEENT: Atraumatic, normocephalic. No pallor. Pulm: CTAB A&P. -wheezes, -rales, -rhonchi with normal breathing, high-pitched expiratory wheeze on forced expiration. Symmetrical chest rise. No increase work of breathing. No respiratory distress. Cardiac: RRR, -mrg. Radial pulses intact and symmetrical. Abdominal: Nontender, nondistended, soft. BS present. Discharge Data Allergies Allergy/AdvReac Type Severity Reaction Status Date / Time NSAIDS (Non-Steroidal Allergy Severe EXTREME Unverified 08/04/19 17:00 Anti-Inflamma HIVES Penicillins AdvReac Intermediate HIVES Unverified 08/04/19 17:00 Cwujggb-Wxl-Olx Reductase AdvReac Unknown UNKNOWN Unverified 08/04/19 17:00 Inhibitor Consultations 08/04/19 17:33 ED Decision to Admit Stat 08/04/19 19:22 Consult Case Management - Discharge Planning Routine 08/05/19 09:01 Consult Cardiology Routine Hospital Course (1) Shortness of breath: Anabel is an 79-year-old female with a past medical history of coronary artery disease status post stenting, arthritis, and allergies who presented to the hospital with intermittent wheezing and concern over left-sided chest pain. She was admitted for cardiac evaluation. Shortness of breath with left chest pain Anabel was admitted for cardiac evaluation given a strong story of shortness of breath and chest pain at rest. She did not have a history of diabetes or tobacco abuse. Her troponin peaked at 0.139, and she did not show any ST changes on EKG. Her EKG showed bradycardia with first-degree heart block. Echocardiogram was within normal limits. Her symptoms resolved with supportive care in the hospital. Cardiology was consulted, and her case was discussed. Her episodes had been preceded with increased wheezing in the previous month. It was felt that her troponin leak was from demand ischemia in the setting of acute illness with known coronary disease. Repeat cardiac catheterization or nuclear stress was not recommended. Given that her symptoms were occurring in the setting of an acute illness and that her blood pressures and heart rate both tended to be low a daily nitrate was not started, and her metoprolol was not increased. Her respiratory symptoms and chest discomfort both resolved with albuterol inhaler as needed. She was discharged with an albuterol inhaler to be used as needed. Her preceding symptoms prior to her acute illness which may have been exacerbated by a URI were not daily, and she had not been having daily wheezing or nighttime awakenings so a daily asthma medication was not started. She was in good health, and feeling at her normal baseline at time of discharge. He was discharged to follow-up with her primary care physician. Hypertension/coronary artery disease Anabel's prior to admission doses of metoprolol, hydrochlorothiazide, losartan, colestipol, and coenzyme every 10 were continued. No adjustments to these medications were made during admission. She has not started on a statin as she has a history of being statin intolerant with aches to multiple statins. DVT prophylaxis Anabel was maintained on Lovenox subcutaneously for DVT prophylaxis. She did not show any signs of DVT during admission. (2) Cough: (3) CAD (coronary artery disease): (4) Hyperlipidemia: (5) Hypertension: (6) Chest pain: (7) Seasonal allergies: Total Time Total Time Spent Total Time Spent (In Minutes): <30 Discharge Plan Discharge Items Patient Disposition: Home - Self-Care Reason For Visit: CHEST PAIN Discharge Diagnosis: chest pain - see below Activity: Resume your previous activity Non-emergency contact: Primary Care Provider and Application Performance Engineer Call non-emergency contact if: you have any medication questions and your symptoms worsen Follow-up/Referrals: Bonnie Olguin CRNP [Primary Care Provider] - Diet: Regular Addtl Attending Provider Instructions: chest pain -as we discussed, the chest pain was likely a combination of lung related tightness followed subsequently by heart related angina. more than likely having a viral bronchitis with an asthma response was the "spark that lit the fire" and then being more short of breath/tight in the chest from the asthma response was what led to angina - mostly from your heart having to work harder than it should in the face of the respiratory illness -fortunately, while we did see some evidence that your heart was under strain (mildly elevated troponin level) we did not see any real evidence of worrisome strain or damage (your heart overall appears to be working well) -we'll treat as follows: -for the asthma/bronchitis portion, we'll send you with an albuterol inhaler to use as needed if you feel tight/short winded/have a tight cough -- you can use it up to every 4 hours as needed. as we discussed, it can raise heart rate and blood pressure some, but the effects generally only last 4-6 hours, so you won't need to be monitoring your vitals more closely than you normally do, unless you're needing the albuterol a lot (in which case we'd want to get you seen sooner anyway) -for the angina portion, we'll renew a prescription for [id number] nitroglycerin - with the idea that if you feel any type of chest pain you're not sure of the cause, you can use the nitro as needed. the process would be as follows: if you're doing something when you feel the pain, stop what you're doing and rest. if the pain doesn't go away in 5 minutes, then take a nitro under the tongue. if the pain lasts another five minutes, you can take a second nitro. If the pain persists for five minutes after the second nitro, then take a third nitro, an aspirin, and call 911. more than likely you won't need the nitro at all - since you'd been doing well with your heart for so long, and it's most likely that the respiratory illness (which is now improving) is what put your heart under strain to begin with. If, however, you're noticing a new and persistent pattern to the chest pain (or if you need the nitro much with any regularity, or if you have intense pain to where it really gets your attention) then we'd want you seen. Pending Studies at Discharge: No Stand-Alone Forms: My [facility], Smoking Cessation Medications and DC Order Prescriptions: New albuterol sulfate 90 mcg/actuation aerosol powdr breath activated 1 puffs INH Q6H PRN (Reason: shortness of breath or wheezing) Qty: 1 RF: 0 nitroglycerin 0.4 mg tablet, sublingual 0.4 mg sublingual Q5M PRN (Reason: chest pain) Qty: 30 RF: 0 Continued acetaminophen [Acetaminophen Extra Strength] 500 mg tablet 500 mg PO Q8H PRN (Reason: Pain) RF: 0 aspirin [Adult Low Dose Aspirin] 81 mg tablet,delayed release (DR/EC) 81 mg PO QAM RF: 0 colestipol 1 gram tablet 8 gm PO BID RF: 0 coenzyme Q10 [Co Q-10] 200 mg capsule 200 mg PO QAM RF: 0 hydrochlorothiazide 12.5 mg tablet 12.5 mg PO QAM Qty: 90 RF: 0 losartan 100 mg tablet 100 mg PO QAM Qty: 90 RF: 0 metoprolol succinate 25 mg tablet extended release 24 hr 12.5 mg PO BID Qty: 90 RF: 0 multivitamin [Multiple Vitamins] tablet 1 tab PO QAM RF: 0 omega-3 acid ethyl esters 1 gram capsule 2 cap PO QAM RF: 0 tramadol 50 mg tablet 50 mg PO Q8H PRN (Reason: Back Pain) RF: 0 cetirizine 10 mg tablet 10 mg PO BID RF: 0 Discharge Orders: Discharge Order (Routine); Ordered 08/06/19 Ordered By: Daniel Holden Admission Data Admit Date/Time: 08/04/19 18:07 Attending Provider: Daniel Holden Admit Provider: Tammy Toribio Primary Care Provider: Bonnie Olguin Other Providers: Tammy Toribio ; Wu Kwong ; Sarah Wallis Other Interventions: Discharge Summary Assessment (RN) Last Done: 08/06/19 13:41 DC Date/Time DO NOT enter until pt leaves facility: 08/06/19 15:15 Supervising Physician Co-Signing Physician Notes I personally examined the patient and verified all [place] points of history and exam, discussed case, and agree with decision making with Dr Teran. feeling better chest pain resolved, cardiology input appreciated. no new complaints. would very much like to go home. extensive discussions on a/p and steps moving forward, all questions answered to the best of my ability and to her satisfaction vitals noted nad heent nc at mmm breathing unlabored no accessory muscles good effort skin no rashes no pallor or icterus Chest pain, elevated troponinmore than likely a combination of her asthmatic bronchitis episode increasing physiologic stress, as well as her existing coronary disease allowing for demand ischemia to occur. Given that this has not been a recurring theme, while we discussed escalating meds chronically, for now we will treat for what is actually occurringalbuterol as needed shortness of breath or wheeze, nitro as needed angina. If she needs nitro with any degree of frequency or regularity, or she starts to have a new anginal pattern with activity, then a revamped med regimen (such as escalating her beta-aristeo or adding Imdur) can be done. Stable for home. Otherwise as above. Resident Activity Tracking Resident Involvement: Resident Care Provided Care Provided: Adult [facility] Medicine
--- NOTE | 2019-08-06 17:22 | Billing Data ---
Date of Service August 06, 2019 Coding Level of Care Code D/C Day Management <30 mins
== END 2019-08-06 15:15 | disposition home or self-care (01) ==
LOC: 2S 14:50 → ED 14:50 → SUATTDRO 18:07 → 2S 18:57

== ENCOUNTER 2024-01-22 15:42 | Inpatient (IN) ==
--- NOTE | 2024-01-22 15:55 | Emergency Department Note ---
Impression & Plan Acute right-sided weakness, Ambulatory dysfunction, Bigeminy, Elevated troponin ED Provider Note Name: CARMEN GREEN Age: 83 Sex: Female Arrives Via: Ambulance Informant: Patient, EMS, daughter ED Provider: Wero Teran MD Chief Complaint: Weakness Impression: As per impressions above Medical Decision Makin-year-old female with a known history of CAD, hyperlipidemia, hypertension on no blood thinners other than aspirin arrives for evaluation following significant weakness over the last 48 hours. She got to the bathroom 2 nights ago and was too weak and laid on the floor overnight. Has not been getting around the house for the last 2 days until she was willing to come into the hospital this afternoon with EMS. Patient on arrival has significant weakness of the right arm and leg. She is in bigeminy with a heart rate doubled out of actual pulse rate. Blood pressure is stable at rest. She was given 1 L normal saline as she is clearly dehydrated. Laboratory workup is relatively benign other than a mildly elevated troponin. EKG is bigeminy without clear evidence of ischemia. Patient is not having any chest pain. Symptoms ongoing for 48 hours thus not TNKase candidate nor thrombectomy candidate. There is no clear evidence of infectious etiology. Patient will need to be hospitalized for further workup and evaluation. Triage/Nursing Notes reviewed by Me External Chart Review by me: I personally reviewed chart and pcp visit notes from 12/26/23 noting patients PMH Differential:Infection, dehydration, metabolic abnormality, hypo/hyperglycemia, electrolyte disturbance, anemia, hypoxia, cardiac sources, intracerebral event, toxicologic, neurologic, as well as other pathologies. Vital Signs: reviewed and remarkable for no significant abnormalities Interventions: NSS Bolus 1L IV Labs:ED labs Reviewed by me and remarkable for mild trop elevation Imaging:X ray results are stated below per my interpretation: Chest: 1 view: No infiltrate, no effusion, normal cardiac border. CT Head wo Contrast: Per my informal interpretation reveals no intracranial hemorrhage or mass effect. Confirmed by radiologist. CT of the cervical spine as per radiologist no fracture no dislocation appreciated. EKG:As per my interpretation. Indication weakness. Sinus with first-degree AV block and bigeminy heart rate 90 with atrial rate 45. QTc 430. There is first- degree AV block and prolonged NJ interval. No ischemia appreciated. Compared to EKG from August 04, 2019 bigeminy is new. Cardiac/Tele Monitoring: Cardiac Monitoring: An Order was placed for continuous cardiac monitoring. The monitor shows a rate of 45 with a bigeminy rhythm. Consults:Discussed with Dr Teran [place] Hospitalist will bring in for further evaluation and management Plan: Disposition:Hospitalization. Condition: Good History of Present Illness: 83-year-old female arrives for evaluation of weakness. Patient notes 3 days ago increasing weakness. When she tried to go to the bathroom on Tuesday evening (40 hours ago) she noted she was feeling just too weak so she sat down on the floor. She admits she felt so weak and tired that she just laid there all night until she was seen the next morning by her daughter. They are able to get her up and get into bed. Since then patient has been severely weak and exhausted. She notes right leg has been hurting her but this is pretty chronic for her. She notes that she just feels very tired right now. At rest she does not have any significant pain just with movement of the right knee. EMS had been called to the house and noted patient's pulse rate was in the 40s with a heart rate in the 80s and noted bigeminy on the monitor. Patient was not hypotensive. Currently patient denies any headache, neck pain, chest pain, shortness of breath abdominal pain, back pain or other concerning signs or symptoms. She does not recall any urinary burning or frequency. She has had no recent fevers, chills or other infectious symptoms. Patient is adamant she did not hit her head when she collapsed to the ground 2 nights ago. Past Medical History:See Below Home Medications:See Below Allergies:NSAIDs, PNC, Statins Vitals:Blood Pressure: 128/77, Pulse 40, RR 16, T 36.4C, O2 93% on RA Physical Exam: GENERAL: Patient is tired & weak appearing and in minimal distress. HEAD: AT/NC NECK: No step-offs, no tenderness palpation RESPIRATORY: No dyspnea. Clear to auscultation and equal bilaterally. CHEST: Small older bruise over right lateral posterior chest nontender CARDIOVASCULAR: Regular rate and rhythm.No murmur appreciated. GASTROINTESTINAL: Abdomen soft, non-tender, no peritonitis. BACK: No midline tenderness, no CVA tenderness. Skin breakdown bilateral buttocks primarily centrally. Small bruise of her right lateral buttock. EXTREMITIES: Right knee bent at 20 degree angle and does have a fair amount of pain with range of motion of the knee. No significant pain in range of motion right hip. Distal pulses intact. Moderate bilateral lower leg edema worse on the right. NEUROLOGIC: Alert and oriented. No focal cranial nerve deficits appreciated. 3 out of 5 strength right arm and leg. 5 out of 5 strength left arm and left leg. No slurred speech, no visual field deficit appreciated. No sensation deficits. SKIN: No rash, no jaundice, no diaphoresis. PSYCH: Appropriate GCS: 15 ED Course: Times/Reassessments: Multiple repeat evaluations. Patient may have some slight improvement in strength in the right arm after some rehydration however continues to have significant weakness. Agreeable to hospitalization. Wero Teran MD Past Med/Surg History Problem List (Updated 01/22/24 @ 19:28 by Jacob Borja PA-C) Stroke-like symptoms Fall Urinary incontinence Elevated troponin (Acute) Bigeminy (Acute) Ambulatory dysfunction (Acute) Acute right-sided weakness (Acute) Peripheral neuropathy Anemia Knee pain Hip pain Benign essential tremor Tremor Leg weakness, bilateral Radicular leg pain Seasonal allergies (Chronic) Stented coronary artery Acid reflux (Chronic) Arthritis (Acute) CAD (coronary artery disease) (Chronic) Ectopic heartbeats (Acute) High risk medication use (Chronic) Hyperlipidemia (Chronic) Hypertension (Chronic) Lumbar canal stenosis (Chronic) Medical History (Updated 01/22/24 @ 19:28 by Jacob Borja PA-C) Elevated troponin Surgical History Hx of tonsillectomy H/O knee surgery Family History Mother Cardiac abnormality Gallbladder disease Hypertension Stroke Cardiac disorder Father Cardiac abnormality Myocardial infarction Cardiac disorder Grandmother (Maternal) Diabetes Grandfather (Maternal) Diabetes Grandfather (Paternal) Kidney disease Aunt Breast cancer Colorectal cancer Ovarian cancer Denies family history of Prostate cancer Social History Smoking Status: Never smoker Second Hand Exposure: No; Do You Dip or Chew Tobacco: No; Hx Alcohol Use: No Hx Substance Use: No Preferred Language: Kazakh Communication Ability: Effective Visual Impairment: Limited Hearing Ability: Normal Weight Loss Physician Required: No Beliefs That Will Affect Care: None marital status: Current Living Situation: Alone Current Living Situation Comment: lives in in-law suite attached to daughters house, daughters assists [employer] current occupational status: retired How many Children do You have: 4 Feels Safe at Home: Yes Childhood Exposure to Second-Hand Smoke: Yes Diet: regular caffeine: Yes during the past year weight has: remained stable Dental Care, Regularly: No Physical Activity Frequency: Other Physical Activity Frequency Comment: Exercise limited by physical condition Seatbelt Use: always Sunscreen Use: Yes Assistive Devices: Denture - Upper, Denture - Lower, Glasses and Walker Allergies Allergies Allergy/AdvReac Type Severity Reaction Status Date / Time NSAIDS (Non-Steroidal Allergy Severe EXTREME Verified 01/22/24 16:45 Anti-Inflamma HIVES Penicillins AdvReac Intermediate HIVES Verified 01/22/24 16:45 [id number] Reductase AdvReac Intermediate WEAKNESS/STIFFNESS Verified 01/22/24 16:45 Inhibitor OF LEG [[id number] Reductase MUSCLE Inhibitor] Home Meds Home Medications Medication Instructions Recorded Confirmed acetaminophen 500 mg tablet 500 mg PO Q8H PRN Pain 03/14/19 01/22/24 (Acetaminophen Extra Strength) cetirizine 10 mg tablet 10 mg PO BID 03/14/19 01/22/24 coenzyme Q10 200 mg capsule (Co 200 mg PO QAM 03/14/19 01/22/24 Q-10) multivitamin (Multiple Vitamins 1 tab PO QAM 03/14/19 01/22/24 tablet) omega-3 acid ethyl esters 1 gram 2 cap PO QAM 03/14/19 01/22/24 capsule aspirin 81 mg tablet,delayed 162 mg PO QAM 11/03/20 01/22/24 release (Adult Low Dose Aspirin) albuterol sulfate 90 mcg/actuation 2 inh inhalation QID PRN Shortness 01/22/24 01/22/24 aerosol inhaler Of Breath Or Wheezing omeprazole 20 mg tablet,delayed 20 mg PO DAILY 01/22/24 01/22/24 release Previous Rx's Medication Instructions Recorded meclizine 25 mg tablet 25 mg PO TID PRN dizziness #30 tabs 02/12/21 colestipol 1 gram tablet 8 g (8 x 1 gram) PO BID #1,440 tabs 11/11/22 hydrochlorothiazide 12.5 mg tablet 12.5 mg PO QAM #90 tabs 10/31/23 losartan 100 mg tablet 100 mg PO QAM #90 tabs 10/31/23 metoprolol succinate 25 mg 12.5 mg (1/2 x 25 mg) PO BID #180 10/31/23 tablet,extended release 24 hr tabs rosuvastatin 5 mg tablet 5 mg PO DAILY #30 tabs 10/31/23 hydrocortisone 2.5 % topical cream 1 applic NJ DAILY PRN hemorrhoids 12/19/23 with perineal applicator #30 grams (Proctosol HC) tramadol 50 mg tablet 50 mg PO Q8H PRN Back Pain #90 tabs 12/19/23 pregabalin 50 mg capsule 50 mg PO BID #60 caps 01/12/24 Results & Data (ED) Vital Signs Vital Signs - 24 hr 01/22/24 15:37 01/22/24 15:54 01/22/24 16:21 Temperature 36.4 C L Temperature Source Oral Pulse Rate 86 90 Pulse Rate from SpO2 Sensor Respiratory Rate 18 14 Blood Pressure 128/77 Blood Pressure Mean 94 Pulse Oximetry 96 96 Oxygen Delivery Method Room Air Room Air Oxygen Flow Rate 0 Sepsis Recent Fever Within 48 Hours No Sepsis New/Unexplained Change in Mental Status No Sepsis Action Taken by Nursing No Action Required 01/22/24 16:33 01/22/24 16:42 01/22/24 16:48 Temperature Temperature Source Pulse Rate 89 102 H 85 Pulse Rate from SpO2 Sensor 81 99 H Respiratory Rate 16 20 Blood Pressure Blood Pressure Mean Pulse Oximetry 95 97 Oxygen Delivery Method Oxygen Flow Rate Sepsis Recent Fever Within 48 Hours Sepsis New/Unexplained Change in Mental Status Sepsis Action Taken by Nursing 01/22/24 16:51 01/22/24 16:54 01/22/24 17:01 Temperature Temperature Source Pulse Rate 88 87 Pulse Rate from SpO2 Sensor 95 H 81 Respiratory Rate 21 Blood Pressure 165/74 H Blood Pressure Mean 120 Pulse Oximetry 92 95 Oxygen Delivery Method Oxygen Flow Rate Sepsis Recent Fever Within 48 Hours Sepsis New/Unexplained Change in Mental Status Sepsis Action Taken by Nursing 01/22/24 17:01 01/22/24 17:03 01/22/24 17:15 Temperature Temperature Source Pulse Rate 88 95 H Pulse Rate from SpO2 Sensor 107 H 58 L Respiratory Rate 18 20 Blood Pressure 165/74 H Blood Pressure Mean 120 Pulse Oximetry 95 Oxygen Delivery Method Oxygen Flow Rate Sepsis Recent Fever Within 48 Hours Sepsis New/Unexplained Change in Mental Status Sepsis Action Taken by Nursing 01/22/24 17:24 01/22/24 17:31 01/22/24 17:33 Temperature Temperature Source Pulse Rate 85 84 Pulse Rate from SpO2 Sensor 90 Respiratory Rate 18 19 Blood Pressure 128/77 Blood Pressure Mean 100 Pulse Oximetry 95 93 Oxygen Delivery Method Oxygen Flow Rate Sepsis Recent Fever Within 48 Hours Sepsis New/Unexplained Change in Mental Status Sepsis Action Taken by Nursing 01/22/24 17:51 01/22/24 18:09 Temperature Temperature Source Pulse Rate 83 83 Pulse Rate from SpO2 Sensor 80 91 H Respiratory Rate 17 25 H Blood Pressure 155/65 H 155/65 H Blood Pressure Mean 95 95 Pulse Oximetry 96 Oxygen Delivery Method Oxygen Flow Rate Sepsis Recent Fever Within 48 Hours Sepsis New/Unexplained Change in Mental Status Sepsis Action Taken by Nursing Laboratory Data 01/22/24 15:56 01/22/24 15:56 Lab Results 01/22/24 01/22/24 01/22/24 Range/Units 15:53 15:56 15:56 WBC 12.13 H (4.8-10.8) K/ul RBC 3.08 L (4.20-5.40) M/uL Hgb 9.5 L (12.0-16.0) g/dl POC Hgb (12.0-16.0) g/dl Hct 30.0 L (37.0-47.0) % POC Hct (37-47) % MCV 97.4 (80.0-100.0) fL MCH 30.8 (25.0-34.0) pg MCHC 31.7 L (32.0-36.0) g/dL RDW Std Deviation 51.2 H (36.4-46.3) fL RDW Coeff of Elvin 14.4 (11.5-14.5) % Plt Count 210 (130-400) K/uL MPV 10.7 (9.4-12.4) fL Immature Gran % (Auto) 0.5 % Neut % (Auto) 82.6 % Lymph % (Auto) 7.8 % [place] % (Auto) 8.7 % Eos % (Auto) 0.2 % Baso % (Auto) 0.2 % Neut # (Auto) 10.02 H (1.40-6.50) K/uL Lymph # (Auto) 0.95 L (1.20-3.40) K/uL [place] # (Auto) 1.05 H (0.11-0.59) K/uL Eos # (Auto) 0.02 (0.00-0.50) K/uL Baso # (Auto) 0.03 (0.00-0.20) K/uL Immature Gran # (Auto) 0.06 (0.01-0.20) K/uL PT 10.4 (9.0-12.0) Seconds INR 1.0 (0.9-1.1) POC Sodium (135-144) mmol/L Sodium 138 (136-145) mmol/L POC Potassium (3.3-5.0) mmol/L Potassium 4.2 (3.5-5.1) mmol/L POC Chloride (101-112) mmol/L Chloride 106 (98-107) mmol/L Carbon Dioxide 25 (21-32) mmol/L POC Total CO2 (24-31) mmol/L Anion Gap 7 (3-11) POC Anion Gap (16-25) mmol/L POC BUN (7-18) mg/dl BUN 38 H (6-23) mg/dl Creatinine 1.41 H (0.6-1.2) mg/dl POC Creatinine (0.6-1.3) mg/dl Est Cr Clr Drug Dosing Not Reportable Est GFR ( Amer) 39.3 ml/min Est GFR (Non-Af Amer) 33.9 ml/min BUN/Creatinine Ratio 27.0 H (10-20) Glucose 123 H (70-99(Fasting)) mg/dl POC Glucose 119 H (70-99) mg/dl POC Glucose (other) (70-99) mg/dl Lactate 1.2 (0.4-2.0) mmol/L Calcium 9.2 (8.6-10.3) mg/dl POC Ioniz Calcium Armond (1.12-1.32) mmol/l Magnesium 2.2 (1.7-2.4) mg/dl Total Bilirubin 0.6 (0.2-1.0) mg/dl Direct Bilirubin 0.1 (0-0.2) mg/dl AST 30 (13-39) U/L ALT 13 (7-52) U/L Alkaline Phosphatase 42 (34-104) U/L Total Creatine Kinase Cancelled 245 H Troponin I High Sens 18.9 H (0-14) pg/ml Total Protein 6.9 (6.0-8.3) gm/dl Albumin 3.9 (3.4-5.0) gm/dl Lipase 22 (11-82) U/L Procalcitonin 0.07 (0-0.5) ng/ml Urine Color Urine Appearance (Clear) Urine pH (4.5-7.5) Ur Specific [place] (1.000-1.030) Urine Protein (Negative) Urine Glucose (UA) (Negative) Urine Ketones (Negative) Urine Blood (Negative) Urine Nitrite (Negative) Urine Bilirubin (Negative) Urine Urobilinogen (Negative) Ur Leukocyte Esterase (Negative) Urine WBC (Auto) (0-5) /hpf Urine RBC (Auto) (0-2) /hpf U Hyaline Cast (Auto) (0-2) /lpf U Epithel Cells (Auto) (0-2) /hpf Urine Bacteria (Auto) (None Seen) SARS-CoV-2 (PCR) (Negative) Influenza Type A (PCR) (Neg) Influenza Type B (PCR) (Neg) RSV (RT-PCR) (Neg) 01/22/24 01/22/24 01/22/24 Range/Units 16:00 16:04 17:03 WBC (4.8-10.8) K/ul RBC (4.20-5.40) M/uL Hgb (12.0-16.0) g/dl POC Hgb 9.9 L (12.0-16.0) g/dl Hct (37.0-47.0) % POC Hct 29 L (37-47) % MCV (80.0-100.0) fL MCH (25.0-34.0) pg MCHC (32.0-36.0) g/dL RDW Std Deviation (36.4-46.3) fL RDW Coeff of Elvin (11.5-14.5) % Plt Count (130-400) K/uL MPV (9.4-12.4) fL Immature Gran % (Auto) % Neut % (Auto) % Lymph % (Auto) % [place] % (Auto) % Eos % (Auto) % Baso % (Auto) % Neut # (Auto) (1.40-6.50) K/uL Lymph # (Auto) (1.20-3.40) K/uL [place] # (Auto) (0.11-0.59) K/uL Eos # (Auto) (0.00-0.50) K/uL Baso # (Auto) (0.00-0.20) K/uL Immature Gran # (Auto) (0.01-0.20) K/uL PT (9.0-12.0) Seconds INR (0.9-1.1) POC Sodium 140 (135-144) mmol/L Sodium (136-145) mmol/L POC Potassium 4.2 (3.3-5.0) mmol/L Potassium (3.5-5.1) mmol/L POC Chloride 105 (101-112) mmol/L Chloride (98-107) mmol/L Carbon Dioxide (21-32) mmol/L POC Total CO2 21 L (24-31) mmol/L Anion Gap (3-11) POC Anion Gap 19.0 (16-25) mmol/L POC BUN 33 H (7-18) mg/dl BUN (6-23) mg/dl Creatinine (0.6-1.2) mg/dl POC Creatinine 1.6 H (0.6-1.3) mg/dl Est Cr Clr Drug Dosing Est GFR ( Amer) ml/min Est GFR (Non-Af Amer) ml/min BUN/Creatinine Ratio (10-20) Glucose (70-99(Fasting)) mg/dl POC Glucose (70-99) mg/dl POC Glucose (other) 126 H (70-99) mg/dl Lactate (0.4-2.0) mmol/L Calcium (8.6-10.3) mg/dl POC Ioniz Calcium Armond 1.18 (1.12-1.32) mmol/l Magnesium (1.7-2.4) mg/dl Total Bilirubin (0.2-1.0) mg/dl Direct Bilirubin (0-0.2) mg/dl AST (13-39) U/L ALT (7-52) U/L Alkaline Phosphatase (34-104) U/L Total Creatine Kinase Troponin I High Sens (0-14) pg/ml Total Protein (6.0-8.3) gm/dl Albumin (3.4-5.0) gm/dl Lipase (11-82) U/L Procalcitonin (0-0.5) ng/ml Urine Color Yellow Urine Appearance Clear (Clear) Urine pH 5.5 (4.5-7.5) Ur Specific [place] 1.015 (1.000-1.030) Urine Protein Negative (Negative) Urine Glucose (UA) Negative (Negative) Urine Ketones Negative (Negative) Urine Blood Trace H (Negative) Urine Nitrite Negative (Negative) Urine Bilirubin Negative (Negative) Urine Urobilinogen Negative (Negative) Ur Leukocyte Esterase Negative (Negative) Urine WBC (Auto) 0-5 (0-5) /hpf Urine RBC (Auto) 0-2 (0-2) /hpf U Hyaline Cast (Auto) 0-2 (0-2) /lpf U Epithel Cells (Auto) 0-2 (0-2) /hpf Urine Bacteria (Auto) 4+ H (None Seen) SARS-CoV-2 (PCR) NEGATIVE (Negative) Influenza Type A (PCR) Negative (Neg) Influenza Type B (PCR) Negative (Neg) RSV (RT-PCR) Negative (Neg) Administered Medications Cetirizine HCl (Cetirizine Hcl 10 Mg Tablet) 10 mg PO BID [facility] Stop: 02/21/24 20:59 Last Admin: 01/22/24 21:04 Dose: 10 mg Documented By: AN Colestipol HCl (Colestipol Hcl 1 Gm Tab) 8 gm PO BID [facility] Stop: 02/21/24 20:59 Last Admin: 01/22/24 21:07 Dose: Not Given Documented By: AN Lactated Ringer's (Lr) 1,000 mls @ 80 mls/hr IV .[id number] MIKE Stop: 01/23/24 07:59 Last Admin: 01/22/24 19:37 Dose: 80 mls/hr Documented By: AN Metoprolol Succinate (Metoprolol Succ 25mg Ext Rel Tab) 12.5 mg PO BID MIKE Stop: 02/21/24 20:59 Last Admin: 01/22/24 21:04 Dose: 12.5 mg Documented By: AN Pregabalin (Pregabalin 50 Mg Cap) 50 mg PO BID [facility] Stop: 02/21/24 20:59 Last Admin: 01/22/24 21:04 Dose: 50 mg Documented By: TAMIE Discontinued Medications Sodium Chloride (Nss) 500 mls @ 999 mls/hr IV .Q31M ONE Stop: 01/22/24 16:21 Last Infusion: 01/22/24 16:33 Dose: Infused Documented By: Admin: 01/22/24 16:02 Dose: 999 mls/hr Documented By: AMAIRANI Tramadol HCl (Tramadol Hcl 50 Mg Tablet) 50 mg PO NOW STA Stop: 01/22/24 17:23 Last Admin: 01/22/24 17:29 Dose: 50 mg Documented By: AMAIRANI Imaging Data Radiologist's Impression: Cervical Spine CT 01/22/24 15:[address] DOSE: 1196.92 mGy.cm HISTORY: fall, right sided weakness TECHNIQUE: Multiaxial CT images of the cervical spine were performed and reformatted in the sagittal and coronal plane without the use of contrast. A dose lowering technique was utilized adhering to the principles of ALARA. COMPARISON: None. FINDINGS: No fractures. There is 2 mm of anterolisthesis of C4 on C5. This is likely due to the long-standing degenerative change. Multiple fused facets and a few fused vertebral bodies. Moderate to severe degenerative changes are noted. Prevertebral soft tissues and the C1-C2 interval are intact. No pneumothorax. IMPRESSION: No fractures within the cervical spine. ACT 112: Negative or not required by law. Electronically signed by: Jacob Tello M.D. 01/22/2024 4:35 PM Chest X-Ray 01/22/24 15:51 XR chest 1V portable HISTORY: right sided weakness COMPARISON: Chest 08/04/2019. FINDINGS: There are low lung volumes. No focal lung consolidations to suggest a pneumonia. No evidence for pulmonary edema. The cardiac silhouette is mildly enlarged. No acute fractures. Degenerative changes within the shoulders. IMPRESSION: Low lung volumes with mild cardiomegaly. Otherwise, no acute process within the chest. ACT 112: Negative or not required by law. Electronically signed by: Jacob Tello M.D. 01/22/2024 6:[address] 01/22/24 15:[address] DOSE: HISTORY: right sided weakness TECHNIQUE: Multiaxial CT images of the head were performed without the use of intravenous contrast. Automated exposure control was utilized for this study. A dose lowering technique was utilized adhering to the principles of ALARA. Comparison: None. Findings: The mastoid air cells are clear. Complete opacification the left maxillary sinus. Mild mucosal thickening within the sphenoid sinuses. The calvarium and skull base are intact. There is no mass, hematoma, midline shift, acute infarct. White matter hypodensity is nonspecific but suggestive of microvascular ischemic change. The ventricles and sulci demonstrate mild age- related involutional changes. Impression: No acute intracranial abnormality. ACT 112: Negative or not required by law. Electronically signed by: Jacob Tello M.D. 01/22/2024 4:31 PM Pelvis X-Ray 01/22/24 15:51 XR pelvis 1-2V routine CLINICAL HISTORY: fall COMPARISON STUDY: Pelvis 02/10/2018. FINDINGS: No fracture or dislocation within the pelvis or hips. The sacrum appears intact. [id number] degenerative changes are again noted. Soft tissues are unremarkable. IMPRESSION: No fracture or dislocation within the pelvis or hips. ACT 112: Negative or not required by law. Electronically signed by: Jacob Tello M.D. 01/22/2024 6:06 PM Knee X-Ray 01/22/24 15:55 RIGHT KNEE 2 VIEWS HISTORY: right knee pain COMPARISON: None. FINDINGS: There is no fracture or dislocation. Small knee effusion. Anterior soft tissue swelling. Severe osteoarthritis. Vascular calcifications are present. No radiopaque foreign bodies. IMPRESSION: 1. No acute fracture or dislocation within the right knee. 2. Small knee effusion. 3. Severe tricompartmental osteoarthritis. ACT 112: Negative or not required by law. Electronically signed by: Jacob Tello M.D. 01/22/2024 6:05 PM Carotid Doppler Study 01/22/24 18:36 BILATERAL CAROTID DOPPLER STUDY HISTORY: Stroke-like symptoms COMPARISON: None. TECHNIQUE: Real-time, grayscale, and color Doppler sonography of the carotid arteries was performed. Imaging reviewed in the transverse and longitudinal planes. All measurements were calculated based on NASCET criteria. FINDINGS: Antegrade flow is seen in the bilateral vertebral arteries. Mild calcified plaque within the bilateral carotid bifurcations.. The peak systolic velocity within the right ICA is 93 cm/s. The right systolic ratio is 1.1. The peak systolic velocity within the left ICA is 109 cm/s. The left systolic ratio is 1.0. IMPRESSION: No hemodynamically significant stenosis seen within the carotid arteries. ACT 112: Negative or not required by law. Electronically signed by: Jacob Tello M.D. 01/22/2024 7:44 PM Discharge Plan Visit Data Chief Complaint: Weakness Stated Complaint: FALL, DIFF AMBULATING, STROKE SX, BRADYCARIDA ED Provider: Wero Teran Discharge Problem: Acute right-sided weakness, Ambulatory dysfunction, Bigeminy, Elevated troponin Patient Disposition: Admitted As Inpatient Discharge Instructions Interventions: ED Discharge Assessment Last Done: 01/22/24 20:23
[2024-01-22] MEDS: SODIUM CHLORIDE 0.9% 500 ML IV ONE (16:02)
[2024-01-22 16:16] LABS: iSTAT Creatinine 1.6 mg/dl (0.6-1.3); iSTAT Hemoglobin 9.9 g/dl (12.0-16.0); iSTAT Ionized Calcium 1.18 mmol/l (1.12-1.32); iSTAT Potassium 4.2 mmol/L (3.3-5.0)
[2024-01-22 16:18] LABS: Basophils # (auto) 0.03 K/uL (0.00-0.20); Basophils % (auto) 0.2 %; Eosinophils # (auto) 0.02 K/uL (0.00-0.50); Eosinophils % (auto) 0.2 %; Hemoglobin 9.5 g/dl (12.0-16.0); Immature Granulocytes # (auto) 0.06 K/uL (0.01-0.20); Immature Granulocytes % (auto) 0.5 %; Lymphocytes # (auto) 0.95 K/uL (1.20-3.40); Lymphocytes % (auto) 7.8 %; Mean Corpuscular Hemoglobin 30.8 pg (25.0-34.0); Mean Corpuscular Hgb Conc 31.7 g/dL (32.0-36.0); Mean Corpuscular Volume 97.4 fL (80.0-100.0); Mean Platelet Volume 10.7 fL (9.4-12.4); Monocytes # (auto) 1.05 K/uL (0.11-0.59); Monocytes % (auto) 8.7 %; Neutrophils # (auto) 10.02 K/uL (1.40-6.50); Neutrophils % (auto) 82.6 %; Platelet Count 210 K/uL (130-400); RDW Coefficient of Variation 14.4 % (11.5-14.5); RDW Standard Deviation 51.2 fL (36.4-46.3); Red Blood Count 3.08 M/uL (4.20-5.40); White Blood Count 12.13 K/ul (4.8-10.8)
--- NOTE | 2024-01-22 16:34 | CT Scan Report ---
HEAD CT NONCONTRAST CT DOSE: HISTORY: right sided weakness TECHNIQUE: Multiaxial CT images of the head were performed without the use of intravenous contrast. A utomated exposure control was utilized for this study. A dose lowering technique was utilized adheri ng to the principles of ALARA. Comparison: None. Findings: The mastoid air cells are clear. Complete opacification the left maxillary sinus. Mild muco racheal thickening within the sphenoid sinuses. The calvarium and skull base are intact. There is no mass , hematoma, midline shift, acute infarct. White matter hypodensity is nonspecific but suggestive of m icrovascular ischemic change. The ventricles and sulci demonstrate mild age-related involutional abdul ges. Impression: No acute intracranial abnormality. ACT 112: Negative or not required by law. Electronically signed by: Jacob Tello M.D. 01/22/2024 4:31 PM
[2024-01-22 16:37] LABS: Alanine Aminotransferase 13 U/L (7-52); Albumin Level 3.9 gm/dl (3.4-5.0); Alkaline Phosphatase 42 U/L (34-104); Anion Gap 7 (3-11); Aspartate Aminotransferase 30 U/L (13-39); Bilirubin Direct 0.1 mg/dl (0-0.2); Bilirubin,Total 0.6 mg/dl (0.2-1.0); Blood Urea Nitrogen 38 mg/dl (6-23); Calcium 9.2 mg/dl (8.6-10.3); Carbon Dioxide 25 mmol/L (21-32); Chloride 106 mmol/L (98-107); Creatine Kinase 245 U/L (26-192); Est GFR (African American) 39.3 ml/min; Est GFR (Non-African American) 33.9 ml/min; Glucose 123 mg/dl (70-99(Fasting)); Lipase 22 U/L (11-82); Magnesium 2.2 mg/dl (1.7-2.4); Potassium 4.2 mmol/L (3.5-5.1); Sodium 138 mmol/L (136-145); Total Protein 6.9 gm/dl (6.0-8.3)
--- NOTE | 2024-01-22 16:38 | CT Scan Report ---
CERVICAL SPINE CT CT DOSE: 1196.92 mGy.cm HISTORY: fall, right sided weakness TECHNIQUE: Multiaxial CT images of the cervical spine were performed and reformatted in the sagittal and coronal plane without the use of contrast. A dose lowering technique was utilized adhering to th e principles of ALARA. COMPARISON: None. FINDINGS: No fractures. There is 2 mm of anterolisthesis of C4 on C5. This is likely due to the long- standing degenerative change. Multiple fused facets and a few fused vertebral bodies. Moderate to sev ere degenerative changes are noted. Prevertebral soft tissues and the C1-C2 interval are intact. No p neumothorax. IMPRESSION: No fractures within the cervical spine. ACT 112: Negative or not required by law. Electronically signed by: Jacob Tello M.D. 01/22/2024 4:35 PM
[2024-01-22 16:43] LABS: Troponin I High Sensitivity 18.9 pg/ml (0-14)
[2024-01-22 16:47] LABS: Prothrombin Time 10.4 Seconds (9.0-12.0)
[2024-01-22 16:52] LABS: Influenza A virus by PCR Negative (Neg); Influenza B virus by PCR Negative (Neg); RSV by PCR Negative (Neg); SARS CoV2 RNA(COVID-19) Ceph NEGATIVE (Negative)
[2024-01-22] MEDS: traMADol HCL 50 MG TABLET PO STA (17:29)
[2024-01-22 17:41] LABS: Appearance Urine Clear (Clear); Bacteria Urine Automated 4+ (None Seen); Bilirubin Urine Negative (Negative); Blood Urine Trace (Negative); Cast Urine Automated 0-2 /lpf (0-2); Color Urine Yellow; Epithelial Cell Urine Auto 0-2 /hpf (0-2); Glucose Urine UA Negative (Negative); Ketones Urine Negative (Negative); Leukocyte Esterase Urine Negative (Negative); Nitrite Urine Negative (Negative); Protein Urine Negative (Negative); RBC Urine Automated 0-2 /hpf (0-2); Specific Gravity Urine 1.015 (1.000-1.030); Urobilinogen Urine Negative (Negative); WBC Urine Automated 0-5 /hpf (0-5); pH Urine 5.5 (4.5-7.5)
--- NOTE | 2024-01-22 18:06 | XRay Report ---
RIGHT KNEE 2 VIEWS HISTORY: right knee pain COMPARISON: None. FINDINGS: There is no fracture or dislocation. Small knee effusion. Anterior soft tissue swelling. Se dulce osteoarthritis. Vascular calcifications are present. No radiopaque foreign bodies. IMPRESSION: 1. No acute fracture or dislocation within the right knee. 2. Small knee effusion. 3. Severe tricompartmental osteoarthritis. ACT 112: Negative or not required by law. Electronically signed by: Jacob Tello M.D. 01/22/2024 6:05 PM
--- NOTE | 2024-01-22 18:06 | History & Physical Report ---
Date of Service January 22, 2024 Assessment & Plan (1) Acute right-sided weakness: Plan: Fell off the toilet on Tuesday night/Tuesday morning 01/20 and was unable to get up on her own; no head strike She did not seek medical attention at this time, but then reports developing worsening right-sided deficits in her upper and lower extremities; as well as urinary incontinence No prior history of stroke Head CT without acute findings MRI brain ordered, pending MRA brain ordered, pending Bilateral carotid Dopplers ordered, pending Echocardiogram with bubble study ordered, pending Neurochecks q4h Aspirin and Plavix daily AM CBC, BMP, A1c, mag, fasting lipid panel, creatinine kinase (2) Fall: Plan: Patient was on the ground for extended period of time on Tuesday morning Cervical spine CT without acute findings Right knee with small effusion and severe osteoarthritis; without fractures Pelvic x-ray without fractures Total creatinine kinase level 245 on arrival; potentially some mild residual rha bdomyolysis; IVF Fall precautions PT/OT evaluations appreciated (3) Anemia: Plan: Chronic; 9.5 on arrival No signs of active bleeding on clinical exam, patient is 48 hours from her fall at this point Continue to watch H&H levels (4) Hyperlipidemia: Plan: Patient was previously on rosuvastatin 5 mg daily but she reports this is currently on hold Patient reports it has been giving her neuropathy; she has tried statins in the past but it leads to significant myalgias with pain going down her buttocks and legs Patient reports she does not want to restart statins at this time Readdressed risks/benefits at bedside If CK level downtrending in the morning + brain MRI showing acute stroke, patient is amenable to trial of atorvastatin 40 mg p.o.; will leave off for now Continue coenzyme Q10 and colestipol Follow a.m. fasting lipid panel (5) Urinary incontinence: Plan: PureWick (6) Bigeminy: Plan: Continuous telemetry monitoring (7) Stroke-like symptoms: Plan Disposition: Admit to PCU telemetry DNR/DNI Regular diet VTE PPx: SCDs History of Present Illness Chief Complaint: Right-sided weakness, urinary incontinence Primary Care Provider: JOHN Herrera Anabel is an 83-year-old female with PMH of HTN, HLD, CAD, arthritis, stented coronary artery, acid reflux, trauma, bigeminy, and peripheral neuropathy. She presented on 01/21 for new onset of urinary incontinence and unilateral weakness (R>L). Patient reports that she initially fell when she got up in the middle the night to go to the bathroom on Tuesday/Tuesday morning. Patient was on the toilet, but fell forward onto the ground and was unable to get up on her own. She stayed on the bathroom ground all night. She denies feeling dizzy prior to falling. No head strike. Eventually she was found in the morning and was helped up. She did not seek medical attention at this time. She then began to notice urinary incontinence that Tuesday/Tuesday, and came into the hospital on Tuesday afternoon. No prior history of stroke. Patient denies slurred speech or facial droop. However she does note unilateral deficits on the right upper and lower extremity. Patient daughter is at the bedside and also reports that she has been having some difficulty with word finding. Additionally, she notes that she had diplopia on Tuesday night/Tuesday morning that has gradually resolved. Patient took her regular morning medications today. She manages her own medicine at home. Only recent change in medication was that she now takes Lyrica for pain. She ambulates with a walker at baseline. She denies recent falls prior to this. No recent injuries to the head or neck. No sick contacts. Patient denies smoking, tobacco use, and recent alcohol use. Patient's vitals are stable at time of admission. ED course: Tramadol 50 mg p.o. ROS: Patient endorses diplopia in both eyes (resolved), R-sided weakness, urinary incontinence since Tuesday night, intermittent burning with urination, and numbness/tingling in arms/legs (neuropathy; ongoing). Patient denies fever, chills, night-sweats, dizziness, lightheadedness, CONTRERAS, f acial droop, slurred speech, chest pain, SOB, pleuritic CP, cough, abdominal pain, N/V/D, blood in urine/stool, and burning with urination. Allergies Allergy/AdvReac Type Severity Reaction Status Date / Time NSAIDS (Non-Steroidal Allergy Severe EXTREME Verified 01/22/24 16:45 Anti-Inflamma HIVES Penicillins AdvReac Intermediate HIVES Verified 01/22/24 16:45 Xqforlt-[id number] Reductase AdvReac Intermediate WEAKNESS/STIFFNESS Verified 01/22/24 16:45 Inhibitor OF LEG [Zrggady-Jua-Pzj Reductase MUSCLE Inhibitor] Home Medications Medication Instructions Recorded Confirmed Type acetaminophen 500 mg tablet 500 mg PO Q8H PRN Pain 03/14/19 01/22/24 History (Acetaminophen Extra Strength) cetirizine 10 mg tablet 10 mg PO BID 03/14/19 01/22/24 History coenzyme Q10 200 mg capsule (Co 200 mg PO QAM 03/14/19 01/22/24 History Q-10) multivitamin (Multiple Vitamins 1 tab PO QAM 03/14/19 01/22/24 History tablet) omega-3 acid ethyl esters 1 gram 2 cap PO QAM 03/14/19 01/22/24 History capsule aspirin 81 mg tablet,delayed 162 mg PO QAM 11/03/20 01/22/24 History release (Adult Low Dose Aspirin) meclizine 25 mg tablet 25 mg PO TID PRN dizziness #30 tabs 02/12/21 01/22/24 Rx colestipol 1 gram tablet 8 g (8 x 1 gram) PO BID #1,440 tabs 11/11/22 01/22/24 Rx hydrochlorothiazide 12.5 mg tablet 12.5 mg PO QAM #90 tabs 10/31/23 01/22/24 Rx losartan 100 mg tablet 100 mg PO QAM #90 tabs 10/31/23 01/22/24 Rx metoprolol succinate 25 mg 12.5 mg (1/2 x 25 mg) PO BID #180 10/31/23 01/22/24 Rx tablet,extended release 24 hr tabs rosuvastatin 5 mg tablet 5 mg PO DAILY #30 tabs 10/31/23 01/22/24 Rx hydrocortisone 2.5 % topical cream 1 applic OK DAILY PRN hemorrhoids 12/19/23 01/22/24 Rx with perineal applicator #30 grams (Proctosol HC) tramadol 50 mg tablet 50 mg PO Q8H PRN Back Pain #90 tabs 12/19/23 01/22/24 Rx pregabalin 50 mg capsule 50 mg PO BID #60 caps 01/12/24 01/22/24 Rx albuterol sulfate 90 mcg/actuation 2 inh inhalation QID PRN Shortness 01/22/24 01/22/24 History aerosol inhaler Of Breath Or Wheezing omeprazole 20 mg tablet,delayed 20 mg PO DAILY 01/22/24 01/22/24 History release Past Med/Surg History Problem List (Updated 01/22/24 @ 19:28 by Jacob Borja PA-C) Stroke-like symptoms Fall Urinary incontinence Elevated troponin (Acute) Bigeminy (Acute) Ambulatory dysfunction (Acute) Acute right-sided weakness (Acute) Peripheral neuropathy Anemia Knee pain Hip pain Benign essential tremor Tremor Leg weakness, bilateral Radicular leg pain Seasonal allergies (Chronic) Stented coronary artery Acid reflux (Chronic) Arthritis (Acute) CAD (coronary artery disease) (Chronic) Ectopic heartbeats (Acute) High risk medication use (Chronic) Hyperlipidemia (Chronic) Hypertension (Chronic) Lumbar canal stenosis (Chronic) Medical History (Updated 01/22/24 @ 19:28 by Jacob Borja PA-C) Elevated troponin Surgical History Hx of tonsillectomy H/O knee surgery Family History Mother Cardiac abnormality Gallbladder disease Hypertension Stroke Cardiac disorder Father Cardiac abnormality Myocardial infarction Cardiac disorder Grandmother (Maternal) Diabetes Grandfather (Maternal) Diabetes Grandfather (Paternal) Kidney disease Aunt Breast cancer Colorectal cancer Ovarian cancer Denies family history of Prostate cancer Social History Smoking Status: Never smoker Second Hand Exposure: No; Do You Dip or Chew Tobacco: No; Hx Alcohol Use: No Hx Substance Use: No Preferred Language: Spanish Communication Ability: Effective Visual Impairment: Limited Hearing Ability: Normal Direct Service Professional Required: No Beliefs That Will Affect Care: None marital status: Current Living Situation: Alone Current Living Situation Comment: lives in in-law suite attached to daughters house, daughters assists PRN current occupational status: retired How many Children do You have: 4 Feels Safe at Home: Yes Childhood Exposure to Second-Hand Smoke: Yes Diet: regular caffeine: Yes during the past year weight has: remained stable Dental Care, Regularly: No Physical Activity Frequency: Other Physical Activity Frequency Comment: Exercise limited by physical condition Seatbelt Use: always Sunscreen Use: Yes Assistive Devices: Denture - Upper, Denture - Lower, Glasses and Walker Review of Systems Review of Systems: See HPI above Physical Exam Physical Exam: General: no acute distress; pleasant affect; non-toxic appearing; frail appearing; cooperative; SpO2 96% on RA HEENT: normocephalic, atraumatic; no scleral icterus; PERRLA w/ EOMs intact; vision and hearing grossly intact; patient demonstrates ability to smile, raise brows, and frown without unilateral deficits Neck: supple; no lymphadenopathy; trachea midline; patient demonstrates ability to shrug shoulders against resistance without difficulty Skin: warm, dry without signs of tenting; no cyanosis; no rashes, bruising, lesions, or erythema noted CV: chest wall NTP; RRR; S1/S2 normal; no murmurs/rubs/gallops; pulses intact and symmetric at radial, DP, and PT Lungs: no acute respiratory distress; symmetrical chest wall expansion; clear breath sounds across all lung preciado w/o adventitious sounds; no wheezing ABD: Soft, NTP; BS present; no rebound/guarding; no distention MSK: no tics or fasciculations; no edema noted in the LEs b/l, nonerythematous; patient reports that she is unable to lift her right leg off the bed; she is able to lift the left leg with 3/5 strength of the bed; she can wiggle toes bilaterally; 5/5 radiology teacher strength bilaterally Neuro: A&Ox3; normal mood and affect; fluent speech; no facial droop; no focal deficits; sensation intact and symmetric in the face/UEs/LEs b/l Results & Data Results & Data Vital Signs (Past 12 Hours) Vital Signs Temp Pulse Resp BP Pulse Ox O2 Del Method O2 Flow Rate 01/22/24 17:33 84 19 93 01/22/24 17:31 128/77 01/22/24 17:24 85 18 95 01/22/24 17:15 95 H 20 95 01/22/24 17:03 88 18 01/22/24 17:01 165/74 H 01/22/24 17:01 165/74 H 01/22/24 16:54 87 95 01/22/24 16:51 88 21 92 01/22/24 16:48 85 01/22/24 16:42 102 H 20 97 01/22/24 16:33 89 16 95 01/22/24 16:21 96 Room Air 0 01/22/24 15:54 90 14 01/22/24 15:37 36.4 C L 86 18 128/77 96 Room Air Laboratory Results Abnormal lab results 01/22/24 01/22/24 01/22/24 Range/Units 15:53 15:56 16:04 WBC 12.13 H (4.8-10.8) K/ul RBC 3.08 L (4.20-5.40) M/uL Hgb 9.5 L (12.0-16.0) g/dl POC Hgb 9.9 L (12.0-16.0) g/dl Hct 30.0 L (37.0-47.0) % POC Hct 29 L (37-47) % MCHC 31.7 L (32.0-36.0) g/dL RDW Std Deviation 51.2 H (36.4-46.3) fL Neut # (Auto) 10.02 H (1.40-6.50) K/uL Lymph # (Auto) 0.95 L (1.20-3.40) K/uL Delta # (Auto) 1.05 H (0.11-0.59) K/uL POC Total CO2 21 L (24-31) mmol/L POC BUN 33 H (7-18) mg/dl BUN 38 H (6-23) mg/dl Creatinine 1.41 H (0.6-1.2) mg/dl POC Creatinine 1.6 H (0.6-1.3) mg/dl BUN/Creatinine Ratio 27.0 H (10-20) Glucose 123 H (70-99(Fasting)) mg/dl POC Glucose 119 H (70-99) mg/dl POC Glucose (other) 126 H (70-99) mg/dl Total Creatine Kinase 245 H (26-192) U/L Troponin I High Sens 18.9 H (0-14) pg/ml Urine Blood (Negative) Urine Bacteria (Auto) (None Seen) 01/22/24 Range/Units 17:03 WBC (4.8-10.8) K/ul RBC (4.20-5.40) M/uL Hgb (12.0-16.0) g/dl POC Hgb (12.0-16.0) g/dl Hct (37.0-47.0) % POC Hct (37-47) % MCHC (32.0-36.0) g/dL RDW Std Deviation (36.4-46.3) fL Neut # (Auto) (1.40-6.50) K/uL Lymph # (Auto) (1.20-3.40) K/uL Delta # (Auto) (0.11-0.59) K/uL POC Total CO2 (24-31) mmol/L POC BUN (7-18) mg/dl BUN (6-23) mg/dl Creatinine (0.6-1.2) mg/dl POC Creatinine (0.6-1.3) mg/dl BUN/Creatinine Ratio (10-20) Glucose (70-99(Fasting)) mg/dl POC Glucose (70-99) mg/dl POC Glucose (other) (70-99) mg/dl Total Creatine Kinase (26-192) U/L Troponin I High Sens (0-14) pg/ml Urine Blood Trace H (Negative) Urine Bacteria (Auto) 4+ H (None Seen) Diagnostic Findings Cervical Spine CT 01/22/24 15:[address] DOSE: 1196.92 mGy.cm HISTORY: fall, right sided weakness TECHNIQUE: Multiaxial CT images of the cervical spine were performed and reformatted in the sagittal and coronal plane without the use of contrast. A dose lowering technique was utilized adhering to the principles of ALARA. COMPARISON: None. FINDINGS: No fractures. There is 2 mm of anterolisthesis of C4 on C5. This is likely due to the long-standing degenerative change. Multiple fused facets and a few fused vertebral bodies. Moderate to severe degenerative changes are noted. Prevertebral soft tissues and the C1-C2 interval are intact. No pneumothorax. IMPRESSION: No fractures within the cervical spine. ACT 112: Negative or not required by law. Electronically signed by: Jacob Tello M.D. 01/22/2024 4:[address] 01/22/24 15:[address] DOSE: HISTORY: right sided weakness TECHNIQUE: Multiaxial CT images of the head were performed without the use of intravenous contrast. Automated exposure control was utilized for this study. A dose lowering technique was utilized adhering to the principles of ALARA. Comparison: None. Findings: The mastoid air cells are clear. Complete opacification the left maxillary sinus. Mild mucosal thickening within the sphenoid sinuses. The calvarium and skull base are intact. There is no mass, hematoma, midline shift, acute infarct. White matter hypodensity is nonspecific but suggestive of microvascular ischemic change. The ventricles and sulci demonstrate mild age- related involutional changes. Impression: No acute intracranial abnormality. ACT 112: Negative or not required by law. Electronically signed by: Jacob Tello M.D. 01/22/2024 4:31 PM ECG Additional Comments: ECG revealed atrial fibrillation with PVCs at 90 bpm; QTc 430 Code Status & VTE Plan Code Status DNR/DNI VTE Prophylaxis Plan VTE Prophylaxis will be ordered: Yes Supervising Physician Co-Signing Physician Notes Patient seen and examined, chart reviewed, case discussed with Jacob Borja PA-C and I agree with the assessment and plan as above except as otherwise noted Labs and images reviewed Anabel is an 83-year-old female who presents for a stroke evaluation. Weakness x3 days. Was unable to stand after using bathroom. RIGHT sided weakness since Tuesday. Has some chronic neuropathy in hands and feet, but sensation is intact to soft touch in hands and feet bilaterally at provider exam with some qualitative decrease symmetrically in the feet bilaterally seen at the bedside. Cannot hip flex to antigravity on the right. right hand/elbow flexion/extension 5/5. No facial asymmetry. Suspected CVA. Previously on aspirin. Switched to plaavix. Statin increased. MRI-B pending. Outside the window for permissive HTN. Repeat trop pending, initial hstrop with 19. he does have chronic low back pain, but does not feel her back pain has changed and has no new sensory deficits. No saddle anesthesia. Denies bowel or bladder incontinence/retention; lower suspicion for spinal source of her weakness however if MRI of the brain is negative could follow-up with lumbar spine evaluation for further. Multiple statin intolerances with myalgias; low-dose rosuvastatin was on hold for suspected muscle aches in her legs. CK is elevated, suspect from being down rather than statin induced. As long as CK downtrending, will trial atorvastatin which she reports she has never been on, and alternative if that is not tolerated could try pravastatin. Target transition to plavix. S Agree w/ above PG Care Time/CCT Total # of Minutes Spent Total Time Spent with Patient: Total time spent is greater than 50% in coordination of care (as documented) at patient's floor/unit and/or counseling patient: Coding [place] [address] INT INP/OBS CARE 3/75MIN Patient Type Established History Comprehensive Exam Comprehensive Medical Decision Making High Complexity Diagnoses Acute right-sided weakness R53.1 Fall W19.XXXA Anemia, unspecified type D64.9 Anemia type: unspecified type Mixed hyperlipidemia E78.2 Hyperlipidemia type: mixed hyperlipidemia Urinary incontinence R32 Bigeminy I49.8 Stroke-like symptoms R29.90 (3) Anemia Anemia type: unspecified type Qualified Code(s): D64.9 - Anemia, unspecified (4) Hyperlipidemia Hyperlipidemia type: mixed hyperlipidemia Qualified Code(s): E78.2 - Mixed hyperlipidemia
--- NOTE | 2024-01-22 18:07 | XRay Report ---
XR pelvis 1-2V routine CLINICAL HISTORY: fall COMPARISON STUDY: Pelvis 02/10/2018. FINDINGS: No fracture or dislocation within the pelvis or hips. The sacrum appears intact. Mild-to-mo derate degenerative changes are again noted. Soft tissues are unremarkable. IMPRESSION: No fracture or dislocation within the pelvis or hips. ACT 112: Negative or not required by law. Electronically signed by: Jacob Tello M.D. 01/22/2024 6:06 PM
--- NOTE | 2024-01-22 18:10 | XRay Report ---
XR chest 1V portable HISTORY: right sided weakness COMPARISON: Chest 08/04/2019. FINDINGS: There are low lung volumes. No focal lung consolidations to suggest a pneumonia. No evidenc e for pulmonary edema. The cardiac silhouette is mildly enlarged. No acute fractures. Degenerative ch anges within the shoulders. IMPRESSION: Low lung volumes with mild cardiomegaly. Otherwise, no acute process within the chest. ACT 112: Negative or not required by law. Electronically signed by: Jacob Tello M.D. 01/22/2024 6:08 PM
[2024-01-22] MEDS ORDERED: PHARMACIST DISCHARGE MED REC CONSULT PRN (18:33)
[2024-01-22] MEDS: LACTATED RINGER'S 1,000 ML IV SCH (19:37)
--- NOTE | 2024-01-22 19:45 | Ultrasound Report ---
BILATERAL CAROTID DOPPLER STUDY HISTORY: Stroke-like symptoms COMPARISON: None. TECHNIQUE: Real-time, grayscale, and color Doppler sonography of the carotid arteries was performed. Imaging reviewed in the transverse and longitudinal planes. All measurements were calculated based on NASCET criteria. FINDINGS: Antegrade flow is seen in the bilateral vertebral arteries. Mild calcified plaque within the bilateral carotid bifurcations.. The peak systolic velocity within the right ICA is 93 cm/s. The right systolic ratio is 1.1. The peak systolic velocity within the left ICA is 109 cm/s. The left systolic ratio is 1.0. IMPRESSION: No hemodynamically significant stenosis seen within the carotid arteries. ACT 112: Negative or not required by law. Electronically signed by: Jacob Tello M.D. 01/22/2024 7:44 PM
[2024-01-22] MEDS ORDERED: ACETAMINOPHEN 500 MG TAB PO PRN (20:22)
[2024-01-22] MEDS ORDERED: traMADol HCL 50 MG TABLET PO PRN (20:22)
[2024-01-22] MEDS ORDERED: ALBUTEROL HFA 8 GM INHALER INH PRN (20:22)
[2024-01-22] MEDS ORDERED: MECLIZINE HCL 25 MG TAB PO PRN (20:22)
[2024-01-22] MEDS: PREGABALIN 50 MG CAP PO SCH (21:04)
[2024-01-22] MEDS: CETIRIZINE HCL 10 MG TABLET PO SCH (21:04)
[2024-01-22] MEDS: METOPROLOL SUCC 25MG EXT REL TAB PO SCH (21:04)
[2024-01-22] MEDS: COLESTIPOL HCL 1 GM TAB PO SCH (21:07)
--- NOTE | 2024-01-23 01:58 | Magnetic Resonance Report ---
Exam(s): MRA HEAD Without Contrast EXAM: MR Angiography Head Without Intravenous Contrast CLINICAL HISTORY: Reason for exam: Stroke-like symptoms. TECHNIQUE: Magnetic resonance angiography images of the head without intravenous contrast. COMPARISON: No relevant prior studies available. FINDINGS: Right internal carotid artery: No acute findings. Intracranial segment is patent with no significant stenosis. No aneurysm. Right anterior cerebral artery: Unremarkable. No occlusion or significant stenosis. No aneurysm. Right middle cerebral artery: Unremarkable. No occlusion or significant stenosis. No aneurysm. Right posterior cerebral artery: Unremarkable. No occlusion or significant stenosis. No aneurysm. Right vertebral artery: Unremarkable as visualized. Left internal carotid artery: No acute findings. Intracranial segment is patent with no significant stenosis. No aneurysm. Left anterior cerebral artery: Left a 1 segment aneurysm measuring 5.2 x 5.2 x 4.8 mm. No occlusion or significant stenosis. Left middle cerebral artery: Unremarkable. No occlusion or significant stenosis. No aneurysm. Left posterior cerebral artery: Unremarkable. No occlusion or significant stenosis. No aneurysm. Left vertebral artery: Unremarkable as visualized. Basilar artery: Unremarkable. No occlusion or significant stenosis. No aneurysm. 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 Electronically signed by: Sherri Bennett MD 01/23/24 01:57 AM
--- NOTE | 2024-01-23 02:01 | Magnetic Resonance Report ---
Exam(s): MRI HEAD Without Contrast EXAM: MR Head Without Intravenous Contrast CLINICAL HISTORY: Reason for exam: Right-sided UE/LE deficits. TECHNIQUE: Magnetic resonance images of the head/brain without intravenous contrast in multiple planes. COMPARISON: Prior head CT from January 22, 2024. FINDINGS: Brain: Unremarkable. No mass. No hemorrhage. No acute infarct. The flow void at the base of brain are intact. Ventricles: Mild ventriculomegaly. Bones/joints: Unremarkable. No acute fracture. Sinuses: Chronic left maxillary and ethmoid sinusitis. No acute sinusitis. Mastoid air cells: Small mild fluid in the left mastoid air cells. No mastoid effusion. Orbits: Bilateral lens replacements. IMPRESSION: No evidence of acute intracranial pathology. Electronically signed by: Sherri Bennett MD 01/23/24 02:00 AM
[2024-01-23 07:46] LABS: Basophils # (auto) 0.03 K/uL (0.00-0.20); Basophils % (auto) 0.3 %; Eosinophils # (auto) 0.05 K/uL (0.00-0.50); Eosinophils % (auto) 0.5 %; Hematocrit (blood only) 26.3 % (37.0-47.0); Hemoglobin 8.5 g/dl (12.0-16.0); Immature Granulocytes # (auto) 0.05 K/uL (0.01-0.20); Immature Granulocytes % (auto) 0.5 %; Lymphocytes # (auto) 1.49 K/uL (1.20-3.40); Mean Corpuscular Hemoglobin 31.1 pg (25.0-34.0); Mean Corpuscular Hgb Conc 32.3 g/dL (32.0-36.0); Mean Corpuscular Volume 96.3 fL (80.0-100.0); Mean Platelet Volume 11.1 fL (9.4-12.4); Monocytes # (auto) 0.93 K/uL (0.11-0.59); Monocytes % (auto) 8.8 %; Neutrophils # (auto) 8.06 K/uL (1.40-6.50); Neutrophils % (auto) 75.9 %; Platelet Count 189 K/uL (130-400); RDW Coefficient of Variation 14.2 % (11.5-14.5); Red Blood Count 2.73 M/uL (4.20-5.40); White Blood Count 10.61 K/ul (4.8-10.8)
[2024-01-23 07:57] LABS: BUN Creatinine Ratio 24.4 (10-20); Calcium 8.7 mg/dl (8.6-10.3); Chol HDL Ratio 3.3 (0-5); Est GFR (African American) 46.3 ml/min; Estimated Average Glucose 114 mg/dl; Hemoglobin A1C 5.6 % (4.5-5.6)
[2024-01-23] MEDS ORDERED: NON-FORMULARY MEDICATION (Coenzyme Q10 [Co Q-10] 200 mg capsule) PO SCH (09:00)
[2024-01-23] MEDS ORDERED: ATORVASTATIN 40 MG TAB PO SCH (09:00)
[2024-01-23] MEDS: MULTIVITAMIN TAB PO SCH (10:07)
[2024-01-23] MEDS: ASPIRIN 81 MG ECTAB PO SCH (10:07)
[2024-01-23] MEDS: CLOPIDOGREL BISULFATE 75 MG TAB PO SCH (10:08)
[2024-01-23] MEDS: LOSARTAN POTASSIUM 50 MG TAB PO SCH (10:09)
[2024-01-23] MEDS: hydroCHLOROthiazide 25 MG TAB PO SCH (10:09)
[2024-01-23] MEDS: OMEGA-3 (PURIFIED FISH OIL) 1 GM CAP PO SCH (10:10)
[2024-01-23] MEDS: PANTOprazole 40 MG TAB PO SCH (10:12)
--- NOTE | 2024-01-23 10:46 | XCELERA ---
[id number]
[2024-01-23] MEDS: cefTRIAXone SODIUM 2,000 MG/50 ML BAG IV SCH (12:50)
--- NOTE | 2024-01-23 13:48 | Hospitalist Progress Note ---
Date of Service January 23, 2024 Assessment & Plan (1) Acute right-sided weakness: Plan: MRI brain NEGATIVE for acute stroke I believe her weakness was generalized as a result of feeling weak from lyrica as well as brewing UTI Her right leg tends to be worse than the left leg for multiple reasons including advanced OA of the right knee, suspected right hip OA, and severe L-spine DDD [facility] Ortho consult for right knee L-spine CT ordered today - no fractures, but severe spinal stenosis especially at L4-L5 (2) Fall: Plan: Patient was on the ground for extended period of time on Tuesday morning after falling/sliding to the ground in her bathroom Fortunately no fractures on extensive imaging of her head, neck, spine, R knee, etc. PTELIDIA has multiple risk factors for falls including advanced OA R knee, advanced L- spine stenosis, hunched over posture from scoliosis, etc. Check B12/B1 levels to r/o nutritional causes of neuropathy Check TSH (3) Anemia: Plan: Chronic; 9.5 on arrival Hb now 8.5 - likely due to blood draws and some dilutional effect from IV fluids check Fe studies, B12, and folate in am (4) Osteoarthritis of right knee: Plan: SEVERE OA of right knee x-rays without fracture but the arthritis is bone on bone between her right knee advanced OA as well as advanced l-spine DDD & peripheral neuropathy this all led to right leg weakness and ambulatory difficulty she may benefit from arthrocentesis with drainage of effusion & corticosteroid injection will ask orthopedics to see her in consult unfortunately she has NSAID allergy thus, cont tramadol prn (5) Hyperlipidemia: Plan: Intolerant to statins (is on allergy list) Lipid profile parameters this admission - * LDL 90 * HDL 47 * trigs 89 These are quite acceptable parameters without a statin agent would not re-challenge her with any statin at this time Continue coenzyme Q10 and colestipol (6) Bigeminy: Plan: has had frequency ectopy in the past per records continue beta aristeo (7) BRETT (acute kidney injury): Plan: peak Cr 1.4 now 1.2 2nd to volume depletion repeat BMP am (8) Lumbar canal stenosis: Plan: known, pre-existing severe L-spine DDD in light of her fall and complaint of pain obtained l-spine CT -- r/o compression fracture, etc. add lidoderm patches prn schedule tylenol 1gm TID tramadol prn (9) Dehydration: Plan: s/p IV fluids with resolution (10) Stage 3b chronic kidney disease: Plan: baseline CrCl 30-45 baseline Cr about 1.2 (11) UTI (urinary tract infection): Plan: 2nd GNR rocephin 2gm IV daily await final culture likely the cause of her new onset urinary incontinence she has had the last 48 hours (12) CAD (coronary artery disease): Plan: follows with [facility] just saw Chaitanya WATTS in December 2023 h/o acute [place] - 10/2016 - s/p D1 Drug Eluting Stent continue asa continue metoprolol continue plavix continue losartan has been on various statins in the past but she has been intolerant with myalgias, etc (13) Hypertension: Plan: BPs acceptable with home regimen of HCTZ 12.5m daily, losartan 100mg daily, and metoprolol succinate 12.5mg BID (14) Peripheral neuropathy: Plan: known issue for some time hands/feet l-spine DDD certainly contributes to leg/feet symptoms previously on gabapentin which per records does not help started on lyrica recently (pharmacy records show 50mg BID dose was filled on January 11) she had excess sedation from the lyrica which may have heightened her fall risk will stop lyrica check B12, B1 and TSH levels in am to be complete (15) Diplopia: Plan: had such following her fall over the weekend symptom now resolved MRI brain negative for any acute stroke etiology? side effects from lyrica? visual hallucinations from delirium? nutritional deficiency? (B1, etc) other? treat UTI check B1 level if symptoms recur then neurology eval post-discharge would advise thorough eye exam (16) Rhabdomyolysis: Plan: CPK is in the 200s mild rhabdo only 2nd to fall in her bathroom at home s/p IV fluids Plan DVT proph - add heparin 5000 BID daughter extensively updated by phone this evening patient will need placement for rehab post-d/c very complex care coordination numerous problems addressed today daughter updated by phone (very lengthy call) extensive chart review performed total time today about 80 minutes Admission and Anticipated Discharge Date Admission Date: January 22, 2024 Subjective patient resting comfortably in the chair during the visit she recounts & confirms she started on lyrica on January 11 for peripheral neuropathy she does feel it made her very sleepy/tired on most days with respect to her fall several days ago at home she had gotten up in the middle of the night to use the bathroom she got to the bathroom, used the toilet, then slid to the ground at that point she couldn't get up she denies any loss of consciousness or hitting her head she laid on the ground "all night" until her daughter discovered her the next day she reports that her right knee is painful on most days, prevents her from walking easily, and she was supposed to have it replaced but it has been delayed she also reports that both feet and both hands are numb - this was the reason for the lyrica she does have radicular pains of the RLE at times extending from the low back and buttock down to the right foot she had double vision - the images were stacked vertically she had this over the weekend after suffering her bathroom mishap the diplopia is now resolved I spoke with the pt's daughter over the phone and it sounds like Ms Lancaster was having visual hallucinations at home over the weekend as well Review of Systems Review of Systems: gen - no fevers or chills cv - no chest pain pulm - no dyspnea GI - no abd pain Physical Exam Physical Exam: gen - NAD, pleasant eyes - PERRL, EOMI, she does have mild ptosis of both upper eyelids and mild proptosis; no nystagmus neck - no JVD heart - irregular, s1 s2, 2/6 MILE LSB lungs - CTA b/l abd - soft NT ND BS+ ext - no edema, pulses 2+ b/l musculo - right knee - severe bony OA changes, +effusion; crepitus with passive ROM; tenderness with passive ROM; passive ROM of right hip reveals significant restriction; back - mildly tender to palpation over the lumbar spine segments; b/l shoulders - active ROM is impaired and restricted neuro - strength - 5/5 x 4 exts; no focal motor weakness; finger/nose/finger maneuver - mild dysmetria on left, none on right; mild tremor (action) noted on left hand/arm; no facial droop; speech fluent/clear skin - minor bruise right flank region Results & Data Results & Data Vital Signs (Past 12 Hours) Vital Signs Temp Pulse Resp BP Pulse Ox O2 Del Method 01/23/24 10:35 36.7 C 47 L 18 138/74 96 Room Air 01/23/24 07:47 36.9 C 68 18 153/65 H 94 Room Air 01/23/24 03:01 37.0 C 51 L 18 113/71 94 Room Air Laboratory Results Laboratory Results - last 24 hr 01/23/24 06:54 WBC 10.61 RBC 2.73 L Hgb 8.5 L Hct 26.3 L MCV 96.3 MCH 31.1 MCHC 32.3 RDW Std Deviation 50.0 H RDW Coeff of Elvin 14.2 Plt Count 189 MPV 11.1 Immature Gran % (Auto) 0.5 Neut % (Auto) 75.9 Lymph % (Auto) 14.0 [place] % (Auto) 8.8 Eos % (Auto) 0.5 Baso % (Auto) 0.3 Neut # (Auto) 8.06 H Lymph # (Auto) 1.49 [place] # (Auto) 0.93 H Eos # (Auto) 0.05 Baso # (Auto) 0.03 Immature Gran # (Auto) 0.05 Sodium 139 Potassium 4.0 Chloride 107 Carbon Dioxide 25 Anion Gap 7 BUN 30 H Creatinine 1.23 H Est Cr Clr Drug Dosing 38.0 Est GFR ( Amer) 46.3 Est GFR (Non-Af Amer) 40.0 BUN/Creatinine Ratio 24.4 H Glucose 126 H Estimat Average Glucose 114 Hemoglobin A1c 5.6 Calcium 8.7 Total Creatine Kinase 234 H Triglycerides 89 Cholesterol 155 LDL Cholesterol, Calc 90 VLDL Cholesterol, Calc 18 HDL Cholesterol 47 Cholesterol/HDL Ratio 3.3 Diagnostic Findings Lumbar Spine CT 01/23/24 13:[address] DOSE: 1166.21 mGy.cm HISTORY: fall, back pain; h/o severe L-spine DDD TECHNIQUE: Multiaxial CT images of the lumbar spine were performed and reformatted in the sagittal and coronal plane without the use of contrast. A dose lowering technique was utilized adhering to the principles of ALARA. COMPARISON: Lumbar spine radiograph 02/10/2018. FINDINGS: Moderate levoscoliosis of the lumbar spine. No fracture or subluxation. The visualized sacrum is intact. Moderate to severe disc space narrowing throughout the lumbar spine and T12-L1 level. Moderate to severe centimeters degenerative changes are also noted. Paravertebral soft tissues are unremarkable. There is moderate to severe central canal narrowing throughout the majority of the lumbar spine most pronounced at the L4-5 level. IMPRESSION: 1. No fracture or subluxation within the lumbar spine. 2. Moderate levoscoliosis. 3. Moderate to severe degenerative changes throughout the lumbar spine most pronounced at the L4-5 level. ACT 112: Negative or not required by law. Electronically signed by: Jacob Tello M.D. 01/23/2024 3:42 PM PG Care Time/CCT Total # of Minutes Spent Total Time Spent with Patient: Total time spent is greater than 50% in coordination of care (as documented) at patient's floor/unit and/or counseling patient: Prolonged Care Time Prolonged Care Time: Yes Total Prolonged Care Time: 80 Coding Level of Care Code 36417 SUB INP/OBS CARE 3/50MIN (25 - SIGNIFICANT, SEPARATELY IDENTIFIABLE ) Diagnoses Acute right-sided weakness R53.1 Fall W19.XXXA Anemia, unspecified type D64.9 Anemia type: unspecified type Osteoarthritis of right knee M17.11 Mixed hyperlipidemia E78.2 Hyperlipidemia type: mixed hyperlipidemia Bigeminy I49.8 BRETT (acute kidney injury) N17.9 Lumbar canal stenosis M48.061 Dehydration E86.0 Stage 3b chronic kidney disease N18.32 UTI (urinary tract infection) N39.0 Coronary artery disease involving [place] coronary artery of [place] heart without angina pectoris I25.10 Coronary Disease-Associated Artery/Lesion type: [place] artery [place] vs. transplanted heart: [place] heart Associated angina: without angina Primary hypertension I10 Hypertension type: primary hypertension Peripheral polyneuropathy G62.9 Peripheral neuropathy type: polyneuropathy, unspecified Diplopia H53.2 Rhabdomyolysis M62.82 Additional Codes Prolonged Care Time - Prolonged Care Time: Yes ([id number]) (3) Anemia Anemia type: unspecified type Qualified Code(s): D64.9 - Anemia, unspecified (5) Hyperlipidemia Hyperlipidemia type: mixed hyperlipidemia Qualified Code(s): E78.2 - Mixed hyperlipidemia (12) CAD (coronary artery disease) Coronary Disease-Associated Artery/Lesion type: [place] artery [place] vs. transplanted heart: [place] heart Associated angina: without angina Qualified Code(s): I25.10 - Atherosclerotic heart disease of [place] coronary artery without angina pectoris (13) Hypertension Hypertension type: primary hypertension Qualified Code(s): I10 - Essential (primary) hypertension (14) Peripheral neuropathy Peripheral neuropathy type: polyneuropathy, unspecified Qualified Code(s): G62.9 - Polyneuropathy, unspecified
--- NOTE | 2024-01-23 15:44 | CT Scan Report ---
LUMBAR SPINE CT CT DOSE: 1166.21 mGy.cm HISTORY: fall, back pain; h/o severe L-spine DDD TECHNIQUE: Multiaxial CT images of the lumbar spine were performed and reformatted in the sagittal an d coronal plane without the use of contrast. A dose lowering technique was utilized adhering to the principles of ALARA. COMPARISON: Lumbar spine radiograph 02/10/2018. FINDINGS: Moderate levoscoliosis of the lumbar spine. No fracture or subluxation. The visualized sacr um is intact. Moderate to severe disc space narrowing throughout the lumbar spine and T12-L1 level. M oderate to severe centimeters degenerative changes are also noted. Paravertebral soft tissues are unr emarkable. There is moderate to severe central canal narrowing throughout the majority of the lumbar spine most pronounced at the L4-5 level. IMPRESSION: 1. No fracture or subluxation within the lumbar spine. 2. Moderate levoscoliosis. 3. Moderate to severe degenerative changes throughout the lumbar spine most pronounced at the L4-5 le hilda. ACT 112: Negative or not required by law. Electronically signed by: Jacob Tello M.D. 01/23/2024 3:42 PM
--- NOTE | 2024-01-23 16:42 | Orthopedic Consultation ---
Date of Consultation January 23, 2024 Assessment & Plan (1) Knee pain: Will plan on conservative management for her right knee arthritis using an Duke bandage, ice and oral nonsteroidal agents. I will reevaluate her tomorrow morning. If she is still can continuing to have pain we may consider aspiration with possible corticosteroid injection. Supervising Physician Co-Signing Physician Notes I, Dr. Sherman, saw and examined the patient. I discussed the management with my PA. I reviewed my PAs note and agree with the documented findings and attest to completing the substantive portion of medical decision making and plan of care I developed. In addition to right knee and hip pain, the patient c/o right shoulder pain likely secondarily to contusion versus exacerbation of OA. PE: RLE: sensation to light touch intact. BCR < 2 sec. Motor gastroc soleus, Tib ant, EHL 5/5. Limited ROM of the knee 20-40 degrees. + Effusion. Healed scar lateral to patella. Diffuse tenderness to palpation. RUE: 2+ radial pulse. Sensation to light touch intact distally. Motor: median, radial, ulnar, AIN, PIN, and musculocutaneous nerves were intact. ROM shoulder: FF 20 deg actively, AAROM 160 deg with crepitus; Abduction actively 60 deg, AAROM 160 deg. Diffuse tenderness to palpation. IMPRESSION/PLAN: 1) Right knee pain secondarily to exacerbation of OA Will treat conservatively. To consider aspiration and cortisone injection. Recommend trial of CONTRERAS injection as an outpatient. If injection no longer effective could try IOVERA as an outpatient. Poor surgical candidate. WBAT with walker RICE PT/OT Continue pain control 2) Right hip pain secondarily to contusion versus exacerbation of OA RICE PT/OT Continue pain control Could consider ultrasound guided cortisone injection if not improving 3) Right shoulder pain secondarily to contusion versus exacerbation of OA versus rotator cuff strain/tear. RICE PT/OT Continue pain control Will obtain shoulder x-rays Continue care per primary service. Will continue to follow History of Present Illness Reason for Consultation: Right knee pain Requesting Physician: Dr. Bhavik Sherman Attending Physician: Prince Barajas MD History of Present Illness Anabel is an 83-year-old female is seen in consultation for right knee pain and swelling. Patient states that she has had chronic right knee pain due to arthritis. She states that when she lived in [place] she was supposed to have the knee replaced back in early 2014 but decided not to undergo surgery because 2 of her friends who had had surgery earlier that year after receiving anesthesia. Patient has a past medical history with PMH of HTN, HLD, CAD, arthritis, stented coronary artery, acid reflux, trauma, bigeminy, and peripheral neuropathy. She presented on 01/21 for new onset of urinary incontinence and unilateral weakness (R>L). Patient reports that she initially fell when she got up in the middle the night to go to the bathroom on Tuesday night/Tuesday morning. Patient was on the toilet, but fell forward onto the ground and was unable to get up on her own. She stayed on the bathroom ground all night. She denies feeling dizzy prior to falling. No head strike. Eventually she was found in the morning and was helped up. She did not seek medical attention at this time. She then began to notice urinary incontinence that Tuesday/Tuesday, and came into the hospital on Tuesday afternoon. No prior history of stroke. Patient denies slurred speech or facial droop. However she does note unilateral deficits on the right upper and lower extremity. Patient juancho melton is at the bedside and also reports that she has been having some difficulty with word finding. Additionally, she notes that she had diplopia on Tuesday night/Tuesday morning that has gradually resolved. Patient took her regular morning medications today. She manages her own medicine at home. Only recent change in medication was that she now takes Lyrica for pain. She ambulates with a walker at baseline. She denies recent falls prior to this. No recent injuries to the head or neck. No sick contacts. Patient denies smoking, tobacco use, and recent alcohol use. Patient's vitals are stable at time of admission. Allergies Allergy/AdvReac Type Severity Reaction Status Date / Time NSAIDS (Non-Steroidal Allergy Severe EXTREME Verified 01/22/24 16:45 Anti-Inflamma HIVES Penicillins AdvReac Intermediate HIVES Verified 01/22/24 16:45 Djcbmjn-[id number] Reductase AdvReac Intermediate WEAKNESS/STIFFNESS Verified 01/22/24 16:45 Inhibitor OF LEG [Mtobfek-Xbt-Tcx Reductase MUSCLE Inhibitor] Home Medications Medication Instructions Recorded Confirmed Type acetaminophen 500 mg tablet 500 mg PO Q8H PRN Pain 03/14/19 01/22/24 History (Acetaminophen Extra Strength) cetirizine 10 mg tablet 10 mg PO BID 03/14/19 01/22/24 History coenzyme Q10 200 mg capsule (Co 200 mg PO QAM 03/14/19 01/22/24 History Q-10) multivitamin (Multiple Vitamins 1 tab PO QAM 03/14/19 01/22/24 History tablet) omega-3 acid ethyl esters 1 gram 2 cap PO QAM 03/14/19 01/22/24 History capsule aspirin 81 mg tablet,delayed 162 mg PO QAM 11/03/20 01/22/24 History release (Adult Low Dose Aspirin) meclizine 25 mg tablet 25 mg PO TID PRN dizziness #30 tabs 02/12/21 01/22/24 Rx colestipol 1 gram tablet 8 g (8 x 1 gram) PO BID #1,440 tabs 11/11/22 01/22/24 Rx hydrochlorothiazide 12.5 mg tablet 12.5 mg PO QAM #90 tabs 10/31/23 01/22/24 Rx losartan 100 mg tablet 100 mg PO QAM #90 tabs 10/31/23 01/22/24 Rx metoprolol succinate 25 mg 12.5 mg (1/2 x 25 mg) PO BID #180 10/31/23 01/22/24 Rx tablet,extended release 24 hr tabs rosuvastatin 5 mg tablet 5 mg PO DAILY #30 tabs 10/31/23 01/22/24 Rx hydrocortisone 2.5 % topical cream 1 applic MI DAILY PRN hemorrhoids 12/19/23 01/22/24 Rx with perineal applicator #30 grams (Proctosol HC) tramadol 50 mg tablet 50 mg PO Q8H PRN Back Pain #90 tabs 12/19/23 01/22/24 Rx pregabalin 50 mg capsule 50 mg PO BID #60 caps 01/12/24 01/22/24 Rx albuterol sulfate 90 mcg/actuation 2 inh inhalation QID PRN Shortness 01/22/24 01/22/24 History aerosol inhaler Of Breath Or Wheezing omeprazole 20 mg tablet,delayed 20 mg PO DAILY 01/22/24 01/22/24 History release Patient History Medical History Elevated troponin Surgical History Hx of tonsillectomy H/O knee surgery Family History Mother Cardiac abnormality Gallbladder disease Hypertension Stroke Cardiac disorder Father Cardiac abnormality Myocardial infarction Cardiac disorder Grandmother (Maternal) Diabetes Grandfather (Maternal) Diabetes Grandfather (Paternal) Kidney disease Aunt Breast cancer Colorectal cancer Ovarian cancer Denies family history of Prostate cancer Social History Smoking Status: Never smoker Second Hand Exposure: No; Do You Dip or Chew Tobacco: No; Hx Alcohol Use: No Hx Substance Use: No Preferred Language: Tamazight Communication Ability: Effective Visual Impairment: Limited Hearing Ability: Normal Gifted Teacher Required: No Beliefs That Will Affect Care: None marital status: Current Living Situation: Alone Current Living Situation Comment: lives in in-law suite attached to daughters house, daughters assists [employer] current occupational status: retired How many Children do You have: 4 Feels Safe at Home: Yes Childhood Exposure to Second-Hand Smoke: Yes Diet: regular caffeine: Yes during the past year weight has: remained stable Dental Care, Regularly: No Physical Activity Frequency: Other Physical Activity Frequency Comment: Exercise limited by physical condition Seatbelt Use: always Sunscreen Use: Yes Assistive Devices: Cane, Walker and Other Review of Systems Review of Systems: All systems reviewed & are unremarkable except as noted in Subjective Physical Exam Physical Exam: Right knee: Patient has visible flexion contracture at about 30 degrees. Actively she is able to flex to 45 degrees. She has tenderness to palpation over the medial and lateral joint space. She has a 2+ effusion. Her patella is not mobile due to arthritic change within the patellofemoral joint. She is unable to perform an active straight leg raise test. She is able to actively dorsi and plantarflex her foot. She is able to detect light sensation to touch over the pads of all digits. Her calf is soft and supple and nontender to palpation. There is no erythema, ecchymosis warmth or palp bony deformity. Patient does have an old scar over the lateral aspect of her knee from a previous lateral release surgery "many many years ago." Results & Data Vital Signs (Past 12 Hours) Vital Signs Temp Pulse Pulse Resp BP Pulse Ox O2 Del Method 01/23/24 16:22 72 01/23/24 14:32 36.7 C 69 19 128/63 97 Room Air 01/23/24 10:35 36.7 C 47 L 18 138/74 96 Room Air 01/23/24 08:00 76 01/23/24 07:47 36.9 C 68 18 153/65 H 94 Room Air Diagnostic Findings Laboratory Results WBC 10.61 K/ul (4.8-10.8) 01/23/24 06:54 RBC 2.73 M/uL (4.20-5.40) L 01/23/24 06:54 Hgb 8.5 g/dl (12.0-16.0) L 01/23/24 06:54 POC Hgb 9.9 g/dl (12.0-16.0) L 01/22/24 16:04 Hct 26.3 % (37.0-47.0) L 01/23/24 06:54 POC Hct 29 % (37-47) L 01/22/24 16:04 MCV 96.3 fL (80.0-100.0) 01/23/24 06:54 MCH 31.1 pg (25.0-34.0) 01/23/24 06:54 MCHC 32.3 g/dL (32.0-36.0) 01/23/24 06:54 RDW Std Deviation 50.0 fL (36.4-46.3) H 01/23/24 06:54 RDW Coeff of Elvin 14.2 % (11.5-14.5) 01/23/24 06:54 Plt Count 189 K/uL (130-400) 01/23/24 06:54 MPV 11.1 fL (9.4-12.4) 01/23/24 06:54 Immature Gran % (Auto) 0.5 % 01/23/24 06:54 Neut % (Auto) 75.9 % 01/23/24 06:54 Lymph % (Auto) 14.0 % 01/23/24 06:54 Maries % (Auto) 8.8 % 01/23/24 06:54 Eos % (Auto) 0.5 % 01/23/24 06:54 Baso % (Auto) 0.3 % 01/23/24 06:54 Neut # (Auto) 8.06 K/uL (1.40-6.50) H 01/23/24 06:54 Lymph # (Auto) 1.49 K/uL (1.20-3.40) 01/23/24 06:54 Maries # (Auto) 0.93 K/uL (0.11-0.59) H 01/23/24 06:54 Eos # (Auto) 0.05 K/uL (0.00-0.50) 01/23/24 06:54 Baso # (Auto) 0.03 K/uL (0.00-0.20) 01/23/24 06:54 Immature Gran # (Auto) 0.05 K/uL (0.01-0.20) 01/23/24 06:54 PT 10.4 Seconds (9.0-12.0) 01/22/24 15:56 INR 1.0 (0.9-1.1) 01/22/24 15:56 POC Sodium 140 mmol/L (135-144) 01/22/24 16:04 Sodium 139 mmol/L (136-145) 01/23/24 06:54 POC Potassium 4.2 mmol/L (3.3-5.0) 01/22/24 16:04 Potassium 4.0 mmol/L (3.5-5.1) 01/23/24 06:54 POC Chloride 105 mmol/L (101-112) 01/22/24 16:04 Chloride 107 mmol/L (98-107) 01/23/24 06:54 Carbon Dioxide 25 mmol/L (21-32) 01/23/24 06:54 POC Total CO2 21 mmol/L (24-31) L 01/22/24 16:04 Anion Gap 7 (3-11) 01/23/24 06:54 POC Anion Gap 19.0 mmol/L (16-25) 01/22/24 16:04 POC BUN 33 mg/dl (7-18) H 01/22/24 16:04 BUN 30 mg/dl (6-23) H 01/23/24 06:54 Creatinine 1.23 mg/dl (0.6-1.2) H 01/23/24 06:54 POC Creatinine 1.6 mg/dl (0.6-1.3) H 01/22/24 16:04 Est Cr Clr Drug Dosing 38.0 ml/min 01/23/24 06:54 Est GFR ( Amer) 46.3 ml/min 01/23/24 06:54 Est GFR (Non-Af Amer) 40.0 ml/min 01/23/24 06:54 BUN/Creatinine Ratio 24.4 (10-20) H 01/23/24 06:54 Glucose 126 mg/dl (70-99(Fasting)) H 01/23/24 06:54 POC Glucose 119 mg/dl (70-99) H 01/22/24 15:53 POC Glucose (other) 126 mg/dl (70-99) H 01/22/24 16:04 Estimat Average Glucose 114 mg/dl 01/23/24 06:54 Hemoglobin A1c 5.6 % (4.5-5.6) 01/23/24 06:54 Lactate 1.2 mmol/L (0.4-2.0) 01/22/24 15:56 Calcium 8.7 mg/dl (8.6-10.3) 01/23/24 06:54 POC Ioniz Calcium Armond 1.18 mmol/l (1.12-1.32) 01/22/24 16:04 Magnesium 2.2 mg/dl (1.7-2.4) 01/22/24 15:56 Total Bilirubin 0.6 mg/dl (0.2-1.0) 01/22/24 15:56 Direct Bilirubin 0.1 mg/dl (0-0.2) 01/22/24 15:56 AST 30 U/L (13-39) 01/22/24 15:56 ALT 13 U/L (7-52) 01/22/24 15:56 Alkaline Phosphatase 42 U/L (34-104) 01/22/24 15:56 Total Creatine Kinase 234 U/L (26-192) H 01/23/24 06:54 Troponin I High Sens 23.1 pg/ml (0-14) H 01/22/24 22:50 Total Protein 6.9 gm/dl (6.0-8.3) 01/22/24 15:56 Albumin 3.9 gm/dl (3.4-5.0) 01/22/24 15:56 Triglycerides 89 mg/dl (0-150) 01/23/24 06:54 Cholesterol 155 mg/dl (0-200) 01/23/24 06:54 LDL Cholesterol, Calc 90 mg/dl 01/23/24 06:54 VLDL Cholesterol, Calc 18 mg/dl (0-30) 01/23/24 06:54 HDL Cholesterol 47 mg/dl 01/23/24 06:54 Cholesterol/HDL Ratio 3.3 (0-5) 01/23/24 06:54 Lipase 22 U/L (11-82) 01/22/24 15:56 Procalcitonin 0.07 ng/ml (0-0.5) 01/22/24 15:56 Urine Color Yellow 01/22/24 17:03 Urine Appearance Clear (Clear) 01/22/24 17:03 Urine pH 5.5 (4.5-7.5) 01/22/24 17:03 Ur Specific [place] 1.015 (1.000-1.030) 01/22/24 17:03 Urine Protein Negative (Negative) 01/22/24 17:03 Urine Glucose (UA) Negative (Negative) 01/22/24 17:03 Urine Ketones Negative (Negative) 01/22/24 17:03 Urine Blood Trace (Negative) H 01/22/24 17:03 Urine Nitrite Negative (Negative) 01/22/24 17:03 Urine Bilirubin Negative (Negative) 01/22/24 17:03 Urine Urobilinogen Negative (Negative) 01/22/24 17:03 Ur Leukocyte Esterase Negative (Negative) 01/22/24 17:03 Urine WBC (Auto) 0-5 /hpf (0-5) 01/22/24 17:03 Urine RBC (Auto) 0-2 /hpf (0-2) 01/22/24 17:03 U Hyaline Cast (Auto) 0-2 /lpf (0-2) 01/22/24 17:03 U Epithel Cells (Auto) 0-2 /hpf (0-2) 01/22/24 17:03 Urine Bacteria (Auto) 4+ (None Seen) H 01/22/24 17:03 SARS-CoV-2 (PCR) NEGATIVE (Negative) 01/22/24 16:00 Influenza Type A (PCR) Negative (Neg) 01/22/24 16:00 Influenza Type B (PCR) Negative (Neg) 01/22/24 16:00 RSV (RT-PCR) Negative (Neg) 01/22/24 16:[address] 01/22/24 15:[address] DOSE: 1196.92 mGy.cm HISTORY: fall, right sided weakness TECHNIQUE: Multiaxial CT images of the cervical spine were performed and reformatted in the sagittal and coronal plane without the use of contrast. A dose lowering technique was utilized adhering to the principles of ALARA. COMPARISON: None. FINDINGS: No fractures. There is 2 mm of anterolisthesis of C4 on C5. This is likely due to the long-standing degenerative change. Multiple fused facets and a few fused vertebral bodies. Moderate to severe degenerative changes are noted. Prevertebral soft tissues and the C1-C2 interval are intact. No pneumothorax. IMPRESSION: No fractures within the cervical spine. ACT 112: Negative or not required by law. Electronically signed by: Jacob Tello M.D. 01/22/2024 4:35 PM Chest X-Ray 01/22/24 15:51 XR chest 1V portable HISTORY: right sided weakness COMPARISON: Chest 08/04/2019. FINDINGS: There are low lung volumes. No focal lung consolidations to suggest a pneumonia. No evidence for pulmonary edema. The cardiac silhouette is mildly enlarged. No acute fractures. Degenerative changes within the shoulders. IMPRESSION: Low lung volumes with mild cardiomegaly. Otherwise, no acute process within the chest. ACT 112: Negative or not required by law. Electronically signed by: Jacob Tello M.D. 01/22/2024 6:[address] 01/22/24 15:[address] DOSE: HISTORY: right sided weakness TECHNIQUE: Multiaxial CT images of the head were performed without the use of intravenous contrast. Automated exposure control was utilized for this study. A dose lowering technique was utilized adhering to the principles of ALARA. Comparison: None. Findings: The mastoid air cells are clear. Complete opacification the left maxillary sinus. Mild mucosal thickening within the sphenoid sinuses. The calvarium and skull base are intact. There is no mass, hematoma, midline shift, acute infarct. White matter hypodensity is nonspecific but suggestive of microvascular ischemic change. The ventricles and sulci demonstrate mild age- related involutional changes. Impression: No acute intracranial abnormality. ACT 112: Negative or not required by law. Electronically signed by: Jacob Tello M.D. 01/22/2024 4:31 PM Pelvis X-Ray 01/22/24 15:51 XR pelvis 1-2V routine CLINICAL HISTORY: fall COMPARISON STUDY: Pelvis 02/10/2018. FINDINGS: No fracture or dislocation within the pelvis or hips. The sacrum appears intact. [id number] degenerative changes are again noted. Soft tissues are unremarkable. IMPRESSION: No fracture or dislocation within the pelvis or hips. ACT 112: Negative or not required by law. Electronically signed by: Jacob Tello M.D. 01/22/2024 6:06 PM Knee X-Ray 01/22/24 15:55 RIGHT KNEE 2 VIEWS HISTORY: right knee pain COMPARISON: None. FINDINGS: There is no fracture or dislocation. Small knee effusion. Anterior soft tissue swelling. Severe osteoarthritis. Vascular calcifications are present. No radiopaque foreign bodies. IMPRESSION: 1. No acute fracture or dislocation within the right knee. 2. Small knee effusion. 3. Severe tricompartmental osteoarthritis. ACT 112: Negative or not required by law. Electronically signed by: Jacob Tello M.D. 01/22/2024 6:05 PM Carotid Doppler Study 01/22/24 18:36 BILATERAL CAROTID DOPPLER STUDY HISTORY: Stroke-like symptoms COMPARISON: None. TECHNIQUE: Real-time, grayscale, and color Doppler sonography of the carotid arteries was performed. Imaging reviewed in the transverse and longitudinal planes. All measurements were calculated based on NASCET criteria. FINDINGS: Antegrade flow is seen in the bilateral vertebral arteries. Mild calcified plaque within the bilateral carotid bifurcations.. The peak systolic velocity within the right ICA is 93 cm/s. The right systolic ratio is 1.1. The peak systolic velocity within the left ICA is 109 cm/s. The left systolic ratio is 1.0. IMPRESSION: No hemodynamically significant stenosis seen within the carotid arteries. ACT 112: Negative or not required by law. Electronically signed by: Jacob Tello M.D. 01/22/2024 7:44 PM Head MRA 01/23/24 00:04 Exam(s): MRA HEAD Without Contrast EXAM: MR Angiography Head Without Intravenous Contrast CLINICAL HISTORY: Reason for exam: Stroke-like symptoms. TECHNIQUE: Magnetic resonance angiography images of the head without intravenous contrast. COMPARISON: No relevant prior studies available. FINDINGS: Right internal carotid artery: No acute findings. Intracranial segment is patent with no significant stenosis. No aneurysm. Right anterior cerebral artery: Unremarkable. No occlusion or significant stenosis. No aneurysm. Right middle cerebral artery: Unremarkable. No occlusion or significant stenosis. No aneurysm. Right posterior cerebral artery: Unremarkable. No occlusion or significant stenosis. No aneurysm. Right vertebral artery: Unremarkable as visualized. Left internal carotid artery: No acute findings. Intracranial segment is patent with no significant stenosis. No aneurysm. Left anterior cerebral artery: Left a 1 segment aneurysm measuring 5.2 x 5.2 x 4.8 mm. No occlusion or significant stenosis. Left middle cerebral artery: Unremarkable. No occlusion or significant stenosis. No aneurysm. Left posterior cerebral artery: Unremarkable. No occlusion or significant stenosis. No aneurysm. Left vertebral artery: Unremarkable as visualized. Basilar artery: Unremarkable. No occlusion or significant stenosis. No aneurysm. 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 Electronically signed by: Sherri Bennett MD 01/23/24 01:57 AM Brain MRI 01/23/24 00:15 Exam(s): MRI HEAD Without Contrast EXAM: MR Head Without Intravenous Contrast CLINICAL HISTORY: Reason for exam: Right-sided UE/LE deficits. TECHNIQUE: Magnetic resonance images of the head/brain without intravenous contrast in multiple planes. COMPARISON: Prior head CT from January 22, 2024. FINDINGS: Brain: Unremarkable. No mass. No hemorrhage. No acute infarct. The flow void at the base of brain are intact. Ventricles: Mild ventriculomegaly. Bones/joints: Unremarkable. No acute fracture. Sinuses: Chronic left maxillary and ethmoid sinusitis. No acute sinusitis. Mastoid air cells: Small mild fluid in the left mastoid air cells. No mastoid effusion. Orbits: Bilateral lens replacements. IMPRESSION: No evidence of acute intracranial pathology. Electronically signed by: Sherri Bennett MD 01/23/24 02:[address] 01/23/24 13:[address] DOSE: 1166.21 mGy.cm HISTORY: fall, back pain; h/o severe L-spine DDD TECHNIQUE: Multiaxial CT images of the lumbar spine were performed and reformatted in the sagittal and coronal plane without the use of contrast. A dose lowering technique was utilized adhering to the principles of ALARA. COMPARISON: Lumbar spine radiograph 02/10/2018. FINDINGS: Moderate levoscoliosis of the lumbar spine. No fracture or subluxation. The visualized sacrum is intact. Moderate to severe disc space narrowing throughout the lumbar spine and T12-L1 level. Moderate to severe centimeters degenerative changes are also noted. Paravertebral soft tissues are unremarkable. There is moderate to severe central canal narrowing throughout the majority of the lumbar spine most pronounced at the L4-5 level. IMPRESSION: 1. No fracture or subluxation within the lumbar spine. 2. Moderate levoscoliosis. 3. Moderate to severe degenerative changes throughout the lumbar spine most pronounced at the L4-5 level. ACT 112: Negative or not required by law. Electronically signed by: Jacob Tello M.D. 01/23/2024 3:42 PM
[2024-01-23] MEDS: LIDOCAINE 5% 1 PATCH TD SCH (16:45)
[2024-01-24 06:54] LABS: Basophils # (auto) 0.03 K/uL (0.00-0.20); Basophils % (auto) 0.3 %; Eosinophils # (auto) 0.09 K/uL (0.00-0.50); Eosinophils % (auto) 0.9 %; Hemoglobin 8.9 g/dl (12.0-16.0); Immature Granulocytes # (auto) 0.03 K/uL (0.01-0.20); Immature Granulocytes % (auto) 0.3 %; Lymphocytes # (auto) 1.53 K/uL (1.20-3.40); Lymphocytes % (auto) 14.5 %; Mean Corpuscular Hemoglobin 30.5 pg (25.0-34.0); Mean Corpuscular Hgb Conc 31.8 g/dL (32.0-36.0); Mean Corpuscular Volume 95.9 fL (80.0-100.0); Mean Platelet Volume 11.2 fL (9.4-12.4); Monocytes # (auto) 1.16 K/uL (0.11-0.59); Neutrophils # (auto) 7.69 K/uL (1.40-6.50); Platelet Count 186 K/uL (130-400); RDW Coefficient of Variation 14.3 % (11.5-14.5); RDW Standard Deviation 50.1 fL (36.4-46.3); Red Blood Count 2.92 M/uL (4.20-5.40); White Blood Count 10.53 K/ul (4.8-10.8)
--- NOTE | 2024-01-24 07:09 | XRay Report ---
XR shoulder RT min 2V routine HISTORY: 83 years-old Female pain chronic pain of the right shoulder COMPARISON: Chest radiograph 01/22/2024 TECHNIQUE: 3 views of the right shoulder FINDINGS: Severe glenohumeral and AC joint osteoarthritis. Decreased acromiohumeral interval with superior subl uxation of the humeral head. No acute fracture or dislocation. The imaged lung preciado appear clear. IMPRESSION: 1. Severe osteoarthritis without acute fracture or dislocation. 2. Decreased acromiohumeral interval compatible with chronic full thickness rotator cuff tearing. ACT 112: Negative or not required by law. The above report was generated using voice recognition software. It may contain grammatical, syntax o r spelling errors. Electronically signed by: Tacos Alvarez M.D. 01/24/2024 7:08 AM
[2024-01-24 07:12] LABS: BUN Creatinine Ratio 21.9 (10-20); Calcium 8.7 mg/dl (8.6-10.3); Creatinine Clr Calc Pharmacy 32.1 ml/min; Est GFR (African American) 37.6 ml/min; Est GFR (Non-African American) 32.5 ml/min; Potassium 3.7 mmol/L (3.5-5.1)
[2024-01-24 07:27] LABS: Thyroid Stimulating Hormone 5.731 uIu/ml (0.300-4.500)
[2024-01-24 07:30] LABS: Folate (Folic Acid),Ser orPlas > 22.30 ng/ml (>5.38)
[2024-01-24 07:31] LABS: Vitamin B12 633 pg/ml (180-914)
[2024-01-24 07:32] LABS: Ferritin 40.3 ng/ml (8-388)
--- NOTE | 2024-01-24 07:59 | Orthopedic Progress Note ---
Date of Service January 24, 2024 Assessment & Plan (1) Knee pain: Plan: 1) Right knee pain secondarily to exacerbation of OA Will treat conservatively. To consider aspiration and cortisone injection. Recommend trial of CONTRERAS injection as an outpatient. If injection no longer effective could try IOVERA as an outpatient. Poor surgical candidate. WBAT with walker RICE PT/OT Continue pain control Follow-up as out patient to start CONTRERAS injections once approved. 2) Right hip pain secondarily to contusion versus exacerbation of OA, resolved today RICE PT/OT Continue pain control Could consider ultrasound guided cortisone injection if not improving Continue care per primary service. (2) Rotator cuff arthropathy of right shoulder: Plan: 3) Right shoulder pain secondarily to contusion versus exacerbation of rotator cuff arthropathy. RICE PT/OT Continue pain control Could consider cortisone injection, would help with pain, would not improve ROM Patient does not want surgery at this time not a good surgical candidate for reverse TSA Continue care per primary service. Can follow up as an outpatient. Present on Admission?: Yes Admission and Anticipated Discharge Date Admission Date: January 22, 2024 Subjective Right knee pain Physical Exam Physical Exam: PE: RLE: sensation to light touch intact. BCR < 2 sec. Motor gastroc soleus, Tib ant, EHL 5/5. Limited ROM of the knee 20-40 degrees. + Effusion. Healed scar lateral to patella. Diffuse tenderness to palpation knee. - log roll hip. + bruising buttock/lateral hip. RUE: 2+ radial pulse. Sensation to light touch intact distally. Motor: median, radial, ulnar, AIN, PIN, and musculocutaneous nerves were intact. ROM shoulder: FF 80 deg actively, AAROM 160 deg with crepitus; Abduction actively 80 deg, AAROM 160 deg. - tenderness to palpation. Results & Data Vital Signs (Past 12 Hours) Vital Signs Temp Pulse Pulse Resp BP Pulse Ox O2 Del Method 01/24/24 07:37 36.3 C L 85 19 130/76 94 Room Air 01/24/24 02:53 36.6 C 59 L 16 144/69 H 95 Room Air 01/23/24 23:13 36.9 C 62 18 144/74 H 96 Room Air 01/23/24 21:49 78 01/23/24 20:29 80 01/23/24 20:00 Room Air Diagnostic Findings Laboratory Results WBC 10.53 K/ul (4.8-10.8) 01/24/24 06:04 RBC 2.92 M/uL (4.20-5.40) L 01/24/24 06:04 Hgb 8.9 g/dl (12.0-16.0) L 01/24/24 06:04 POC Hgb 9.9 g/dl (12.0-16.0) L 01/22/24 16:04 Hct 28.0 % (37.0-47.0) L 01/24/24 06:04 POC Hct 29 % (37-47) L 01/22/24 16:04 MCV 95.9 fL (80.0-100.0) 01/24/24 06:04 MCH 30.5 pg (25.0-34.0) 01/24/24 06:04 MCHC 31.8 g/dL (32.0-36.0) L 01/24/24 06:04 RDW Std Deviation 50.1 fL (36.4-46.3) H 01/24/24 06:04 RDW Coeff of Elvin 14.3 % (11.5-14.5) 01/24/24 06:04 Plt Count 186 K/uL (130-400) 01/24/24 06:04 MPV 11.2 fL (9.4-12.4) 01/24/24 06:04 Immature Gran % (Auto) 0.3 % 01/24/24 06:04 Neut % (Auto) 73.0 % 01/24/24 06:04 Lymph % (Auto) 14.5 % 01/24/24 06:04 Mobile % (Auto) 11.0 % 01/24/24 06:04 Eos % (Auto) 0.9 % 01/24/24 06:04 Baso % (Auto) 0.3 % 01/24/24 06:04 Neut # (Auto) 7.69 K/uL (1.40-6.50) H 01/24/24 06:04 Lymph # (Auto) 1.53 K/uL (1.20-3.40) 01/24/24 06:04 Mobile # (Auto) 1.16 K/uL (0.11-0.59) H 01/24/24 06:04 Eos # (Auto) 0.09 K/uL (0.00-0.50) 01/24/24 06:04 Baso # (Auto) 0.03 K/uL (0.00-0.20) 01/24/24 06:04 Immature Gran # (Auto) 0.03 K/uL (0.01-0.20) 01/24/24 06:04 PT 10.4 Seconds (9.0-12.0) 01/22/24 15:56 INR 1.0 (0.9-1.1) 01/22/24 15:56 POC Sodium 140 mmol/L (135-144) 01/22/24 16:04 Sodium 138 mmol/L (136-145) 01/24/24 06:04 POC Potassium 4.2 mmol/L (3.3-5.0) 01/22/24 16:04 Potassium 3.7 mmol/L (3.5-5.1) 01/24/24 06:04 POC Chloride 105 mmol/L (101-112) 01/22/24 16:04 Chloride 106 mmol/L (98-107) 01/24/24 06:04 Carbon Dioxide 24 mmol/L (21-32) 01/24/24 06:04 POC Total CO2 21 mmol/L (24-31) L 01/22/24 16:04 Anion Gap 8 (3-11) 01/24/24 06:04 POC Anion Gap 19.0 mmol/L (16-25) 01/22/24 16:04 POC BUN 33 mg/dl (7-18) H 01/22/24 16:04 BUN 32 mg/dl (6-23) H 01/24/24 06:04 Creatinine 1.46 mg/dl (0.6-1.2) H 01/24/24 06:04 POC Creatinine 1.6 mg/dl (0.6-1.3) H 01/22/24 16:04 Est Cr Clr Drug Dosing 32.1 ml/min 01/24/24 06:04 Est GFR ( Amer) 37.6 ml/min 01/24/24 06:04 Est GFR (Non-Af Amer) 32.5 ml/min 01/24/24 06:04 BUN/Creatinine Ratio 21.9 (10-20) H 01/24/24 06:04 Glucose 128 mg/dl (70-99(Fasting)) H 01/24/24 06:04 POC Glucose 119 mg/dl (70-99) H 01/22/24 15:53 POC Glucose (other) 126 mg/dl (70-99) H 01/22/24 16:04 Estimat Average Glucose 114 mg/dl 01/23/24 06:54 Hemoglobin A1c 5.6 % (4.5-5.6) 01/23/24 06:54 Lactate 1.2 mmol/L (0.4-2.0) 01/22/24 15:56 Calcium 8.7 mg/dl (8.6-10.3) 01/24/24 06:04 POC Ioniz Calcium Armond 1.18 mmol/l (1.12-1.32) 01/22/24 16:04 Magnesium 2.2 mg/dl (1.7-2.4) 01/22/24 15:56 Iron 12 mcg/dl (35-150) L 01/24/24 06:04 TIBC 309 mcg/dl (250-450) 01/24/24 06:04 Unsaturated IBC 297 mcg/dl (155-355) 01/24/24 06:04 Transferrin % Sat 4 % (15-50) L 01/24/24 06:04 Ferritin 40.3 ng/ml (8-388) 01/24/24 06:04 Total Bilirubin 0.6 mg/dl (0.2-1.0) 01/22/24 15:56 Direct Bilirubin 0.1 mg/dl (0-0.2) 01/22/24 15:56 AST 30 U/L (13-39) 01/22/24 15:56 ALT 13 U/L (7-52) 01/22/24 15:56 Alkaline Phosphatase 42 U/L (34-104) 01/22/24 15:56 Total Creatine Kinase 234 U/L (26-192) H 01/23/24 06:54 Troponin I High Sens 23.1 pg/ml (0-14) H 01/22/24 22:50 Total Protein 6.9 gm/dl (6.0-8.3) 01/22/24 15:56 Albumin 3.9 gm/dl (3.4-5.0) 01/22/24 15:56 Triglycerides 89 mg/dl (0-150) 01/23/24 06:54 Cholesterol 155 mg/dl (0-200) 01/23/24 06:54 LDL Cholesterol, Calc 90 mg/dl 01/23/24 06:54 VLDL Cholesterol, Calc 18 mg/dl (0-30) 01/23/24 06:54 HDL Cholesterol 47 mg/dl 01/23/24 06:54 Cholesterol/HDL Ratio 3.3 (0-5) 01/23/24 06:54 Lipase 22 U/L (11-82) 01/22/24 15:56 Vitamin B12 633 pg/ml (180-914) 01/24/24 06:04 25-OH Vitamin D Total 36.4 ng/ml (30-100) 01/24/24 06:04 Folate > 22.30 ng/ml (>5.38) 01/24/24 06:04 Procalcitonin 0.07 ng/ml (0-0.5) 01/22/24 15:56 TSH 5.731 uIu/ml (0.300-4.500) H 01/24/24 06:04 Urine Color Yellow 01/22/24 17:03 Urine Appearance Clear (Clear) 01/22/24 17:03 Urine pH 5.5 (4.5-7.5) 01/22/24 17:03 Ur Specific [place] 1.015 (1.000-1.030) 01/22/24 17:03 Urine Protein Negative (Negative) 01/22/24 17:03 Urine Glucose (UA) Negative (Negative) 01/22/24 17:03 Urine Ketones Negative (Negative) 01/22/24 17:03 Urine Blood Trace (Negative) H 01/22/24 17:03 Urine Nitrite Negative (Negative) 01/22/24 17:03 Urine Bilirubin Negative (Negative) 01/22/24 17:03 Urine Urobilinogen Negative (Negative) 01/22/24 17:03 Ur Leukocyte Esterase Negative (Negative) 01/22/24 17:03 Urine WBC (Auto) 0-5 /hpf (0-5) 01/22/24 17:03 Urine RBC (Auto) 0-2 /hpf (0-2) 01/22/24 17:03 U Hyaline Cast (Auto) 0-2 /lpf (0-2) 01/22/24 17:03 U Epithel Cells (Auto) 0-2 /hpf (0-2) 01/22/24 17:03 Urine Bacteria (Auto) 4+ (None Seen) H 01/22/24 17:03 SARS-CoV-2 (PCR) NEGATIVE (Negative) 01/22/24 16:00 Influenza Type A (PCR) Negative (Neg) 01/22/24 16:00 Influenza Type B (PCR) Negative (Neg) 01/22/24 16:00 RSV (RT-PCR) Negative (Neg) 01/22/24 16:[address] 01/22/24 15:[address] DOSE: 1196.92 mGy.cm HISTORY: fall, right sided weakness TECHNIQUE: Multiaxial CT images of the cervical spine were performed and reformatted in the sagittal and coronal plane without the use of contrast. A dose lowering technique was utilized adhering to the principles of ALARA. COMPARISON: None. FINDINGS: No fractures. There is 2 mm of anterolisthesis of C4 on C5. This is likely due to the long-standing degenerative change. Multiple fused facets and a few fused vertebral bodies. Moderate to severe degenerative changes are noted. Prevertebral soft tissues and the C1-C2 interval are intact. No pneumothorax. IMPRESSION: No fractures within the cervical spine. ACT 112: Negative or not required by law. Electronically signed by: Jacob Tello M.D. 01/22/2024 4:35 PM Chest X-Ray 01/22/24 15:51 XR chest 1V portable HISTORY: right sided weakness COMPARISON: Chest 08/04/2019. FINDINGS: There are low lung volumes. No focal lung consolidations to suggest a pneumonia. No evidence for pulmonary edema. The cardiac silhouette is mildly enlarged. No acute fractures. Degenerative changes within the shoulders. IMPRESSION: Low lung volumes with mild cardiomegaly. Otherwise, no acute process within the chest. ACT 112: Negative or not required by law. Electronically signed by: Jacob Tello M.D. 01/22/2024 6:[address] 01/22/24 15:[address] DOSE: HISTORY: right sided weakness TECHNIQUE: Multiaxial CT images of the head were performed without the use of intravenous contrast. Automated exposure control was utilized for this study. A dose lowering technique was utilized adhering to the principles of ALARA. Comparison: None. Findings: The mastoid air cells are clear. Complete opacification the left maxillary sinus. Mild mucosal thickening within the sphenoid sinuses. The calvarium and skull base are intact. There is no mass, hematoma, midline shift, acute infarct. White matter hypodensity is nonspecific but suggestive of microvascular ischemic change. The ventricles and sulci demonstrate mild age- related involutional changes. Impression: No acute intracranial abnormality. ACT 112: Negative or not required by law. Electronically signed by: Jacob Tello M.D. 01/22/2024 4:31 PM Pelvis X-Ray 01/22/24 15:51 XR pelvis 1-2V routine CLINICAL HISTORY: fall COMPARISON STUDY: Pelvis 02/10/2018. FINDINGS: No fracture or dislocation within the pelvis or hips. The sacrum appears intact. Iqor-el-bauapklt degenerative changes are again noted. Soft tissues are unremarkable. IMPRESSION: No fracture or dislocation within the pelvis or hips. ACT 112: Negative or not required by law. Electronically signed by: Jacob Tello M.D. 01/22/2024 6:06 PM Knee X-Ray 01/22/24 15:55 RIGHT KNEE 2 VIEWS HISTORY: right knee pain COMPARISON: None. FINDINGS: There is no fracture or dislocation. Small knee effusion. Anterior soft tissue swelling. Severe osteoarthritis. Vascular calcifications are present. No radiopaque foreign bodies. IMPRESSION: 1. No acute fracture or dislocation within the right knee. 2. Small knee effusion. 3. Severe tricompartmental osteoarthritis. ACT 112: Negative or not required by law. Electronically signed by: Jacob Tello M.D. 01/22/2024 6:05 PM Carotid Doppler Study 01/22/24 18:36 BILATERAL CAROTID DOPPLER STUDY HISTORY: Stroke-like symptoms COMPARISON: None. TECHNIQUE: Real-time, grayscale, and color Doppler sonography of the carotid arteries was performed. Imaging reviewed in the transverse and longitudinal planes. All measurements were calculated based on NASCET criteria. FINDINGS: Antegrade flow is seen in the bilateral vertebral arteries. Mild calcified plaque within the bilateral carotid bifurcations.. The peak systolic velocity within the right ICA is 93 cm/s. The right systolic ratio is 1.1. The peak systolic velocity within the left ICA is 109 cm/s. The left systolic ratio is 1.0. IMPRESSION: No hemodynamically significant stenosis seen within the carotid arteries. ACT 112: Negative or not required by law. Electronically signed by: Jacob Tello M.D. 01/22/2024 7:44 PM Head MRA 01/23/24 00:04 Exam(s): MRA HEAD Without Contrast EXAM: MR Angiography Head Without Intravenous Contrast CLINICAL HISTORY: Reason for exam: Stroke-like symptoms. TECHNIQUE: Magnetic resonance angiography images of the head without intravenous contrast. COMPARISON: No relevant prior studies available. FINDINGS: Right internal carotid artery: No acute findings. Intracranial segment is patent with no significant stenosis. No aneurysm. Right anterior cerebral artery: Unremarkable. No occlusion or significant stenosis. No aneurysm. Right middle cerebral artery: Unremarkable. No occlusion or significant stenosis. No aneurysm. Right posterior cerebral artery: Unremarkable. No occlusion or significant stenosis. No aneurysm. Right vertebral artery: Unremarkable as visualized. Left internal carotid artery: No acute findings. Intracranial segment is patent with no significant stenosis. No aneurysm. Left anterior cerebral artery: Left a 1 segment aneurysm measuring 5.2 x 5.2 x 4.8 mm. No occlusion or significant stenosis. Left middle cerebral artery: Unremarkable. No occlusion or significant stenosis. No aneurysm. Left posterior cerebral artery: Unremarkable. No occlusion or significant stenosis. No aneurysm. Left vertebral artery: Unremarkable as visualized. Basilar artery: Unremarkable. No occlusion or significant stenosis. No aneurysm. 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 Electronically signed by: Sherri Bennett MD 01/23/24 01:57 AM Brain MRI 01/23/24 00:15 Exam(s): MRI HEAD Without Contrast EXAM: MR Head Without Intravenous Contrast CLINICAL HISTORY: Reason for exam: Right-sided UE/LE deficits. TECHNIQUE: Magnetic resonance images of the head/brain without intravenous contrast in multiple planes. COMPARISON: Prior head CT from January 22, 2024. FINDINGS: Brain: Unremarkable. No mass. No hemorrhage. No acute infarct. The flow void at the base of brain are intact. Ventricles: Mild ventriculomegaly. Bones/joints: Unremarkable. No acute fracture. Sinuses: Chronic left maxillary and ethmoid sinusitis. No acute sinusitis. Mastoid air cells: Small mild fluid in the left mastoid air cells. No mastoid effusion. Orbits: Bilateral lens replacements. IMPRESSION: No evidence of acute intracranial pathology. Electronically signed by: Sherri Bennett MD 01/23/24 02:[address] 01/23/24 13:[address] DOSE: 1166.21 mGy.cm HISTORY: fall, back pain; h/o severe L-spine DDD TECHNIQUE: Multiaxial CT images of the lumbar spine were performed and reformatted in the sagittal and coronal plane without the use of contrast. A dose lowering technique was utilized adhering to the principles of ALARA. COMPARISON: Lumbar spine radiograph 02/10/2018. FINDINGS: Moderate levoscoliosis of the lumbar spine. No fracture or subluxation. The visualized sacrum is intact. Moderate to severe disc space narrowing throughout the lumbar spine and T12-L1 level. Moderate to severe centimeters degenerative changes are also noted. Paravertebral soft tissues are unremarkable. There is moderate to severe central canal narrowing throughout the majority of the lumbar spine most pronounced at the L4-5 level. IMPRESSION: 1. No fracture or subluxation within the lumbar spine. 2. Moderate levoscoliosis. 3. Moderate to severe degenerative changes throughout the lumbar spine most pronounced at the L4-5 level. ACT 112: Negative or not required by law. Electronically signed by: Jacob Tello M.D. 01/23/2024 3:42 PM Shoulder X-Ray 01/23/24 20:24 XR shoulder RT min 2V routine HISTORY: 83 years-old Female pain chronic pain of the right shoulder COMPARISON: Chest radiograph 01/22/2024 TECHNIQUE: 3 views of the right shoulder FINDINGS: Severe glenohumeral and AC joint osteoarthritis. Decreased acromiohumeral interval with superior subluxation of the humeral head. No acute fracture or dislocation. The imaged lung preciado appear clear. IMPRESSION: 1. Severe osteoarthritis without acute fracture or dislocation. 2. Decreased acromiohumeral interval compatible with chronic full thickness rotator cuff tearing. ACT 112: Negative or not required by law. The above report was generated using voice recognition software. It may contain grammatical, syntax or spelling errors. Electronically signed by: Tacos Alvarez M.D. 01/24/2024 7:08 AM
[2024-01-24 08:01] LABS: T4 Free Thyroxine 0.99 ng/dl (0.61-1.60)
[2024-01-24] MEDS: ACETAMINOPHEN 500 MG TAB PO SCH (09:04)
[2024-01-24] MEDS: HEPARIN SOD 5,000 UNIT/0.5 ML VIAL SQ SCH (09:05)
[2024-01-24 11:23] LABS: Appearance Synovial Fluid Slightly Hazy; Color Synovial Fluid Yellow; Mononuclear WBC Synovial 4.5 %; Polynuclear WBC Synovial 95.5 %; RBC Synovial Fluid Auto 5000 /uL; Source Synovial Fluid Right Knee; WBC Synovial Fluid Auto 10855 /ul (0-200)
--- NOTE | 2024-01-24 14:35 | Electrocardiogram Report ---
Test Reason : Blood Pressure : / mmHG Vent. Rate : 090 BPM Atrial Rate : 000 BPM P-R Int : 000 ms QRS Dur : 100 ms QT Int : 352 ms P-R-T Axes : 000 066 205 degrees QTc Int : 430 ms Sinus rhythm with 1st degree A-V block with frequent Premature ventricular complexes in a pattern of bigeminy Abnormal ECG When compared with ECG of 04-AUG-2019 16:56, Vent. rate has increased BY 34 BPM Premature ventricular complexes now present Confirmed by Claude Dejesus ([id number]) on 01/24/2024 2:34:38 PM Referred By: REFERRED SELF Confirmed By:Claude Dejesus
[2024-01-24] MEDS: POLYETHYLENE (MIRALAX) 17 GM PACK PO SCH (15:18)
[2024-01-24] MEDS: DOCUSATE SODIUM 100 MG CAP PO SCH (15:19)
--- NOTE | 2024-01-24 20:44 | Hospitalist Progress Note ---
Date of Service January 24, 2024 Assessment & Plan (1) Acute right-sided weakness: Plan: MRI brain NEGATIVE for acute stroke I believe her weakness was generalized as a result of feeling weak from lyrica as well as brewing UTI Her right leg tends to be worse than the left leg for multiple reasons including advanced OA of the right knee, suspected right hip OA, and severe L-spine DDD PTELIDIA Ortho consult for right knee L-spine CT ordered today - no fractures, but severe spinal stenosis especially at L4-L5 advance activity as tolerated (2) Fall: Plan: Patient was on the ground for extended period of time on Tuesday morning after falling/sliding to the ground in her bathroom Fortunately no fractures on extensive imaging of her head, neck, spine, R knee, etc. PTELIDIA has multiple risk factors for falls including advanced OA R knee, advanced L- spine stenosis, hunched over posture from scoliosis, etc. Check B12/B1 levels to r/o nutritional causes of neuropathy Checked TSH : 5.7 (3) Anemia: Plan: Chronic; 9.5 on arrival Hb now 8.5 - likely due to blood draws and some dilutional effect from IV fluids checked Fe studies, B12, and folate in am (4) Osteoarthritis of right knee: Plan: SEVERE OA of right knee x-rays without fracture but the arthritis is bone on bone between her right knee advanced OA as well as advanced l-spine DDD & peripheral neuropathy this all led to right leg weakness and ambulatory difficulty she may benefit from arthrocentesis with drainage of effusion & corticosteroid injection will ask orthopedics to see her in consult unfortunately she has NSAID allergy thus, cont tramadol prn (5) Hyperlipidemia: Plan: Intolerant to statins (is on allergy list) Lipid profile parameters this admission - * LDL 90 * HDL 47 * trigs 89 These are quite acceptable parameters without a statin agent would not re-challenge her with any statin at this time Continue coenzyme Q10 and colestipol (6) Bigeminy: Plan: has had frequency ectopy in the past per records continue beta aristeo (7) BRETT (acute kidney injury): Plan: peak Cr 1.4 now 1.2 2nd to volume depletion repeat BMP am (8) Lumbar canal stenosis: Plan: known, pre-existing severe L-spine DDD in light of her fall and complaint of pain obtained l-spine CT -- r/o compression fracture, etc. 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 Stent continue asa continue metoprolol continue plavix continue losartan has been on various statins in the past but she has been intolerant with myalgias, etc (13) Hypertension: Plan: BPs acceptable with home regimen of HCTZ 12.5m daily, losartan 100mg daily, and metoprolol succinate 12.5mg BID (14) Peripheral neuropathy: Plan: known issue for some time hands/feet l-spine DDD certainly contributes to leg/feet symptoms previously on gabapentin which per records does not help started on lyrica recently (pharmacy records show 50mg BID dose was filled on January 11) she had excess sedation from the lyrica which may have heightened her fall risk will stop lyrica check B12, B1 and TSH levels in am to be complete (15) Diplopia: Plan: had such following her fall over the weekend symptom now resolved MRI brain negative for any acute stroke etiology? side effects from lyrica? visual hallucinations from delirium? nutritional deficiency? (B1, etc) other? treat UTI check B1 level if symptoms recur then neurology eval post-discharge would advise thorough eye exam (16) Rhabdomyolysis: Plan: CPK is in the 200s mild rhabdo only 2nd to fall in her bathroom at home s/p IV fluids Plan DVT proph - add heparin 5000 BID patient will need placement for rehab post-d/c Admission and Anticipated Discharge Date Admission Date: January 22, 2024 Subjective Patient reports no new symptoms. Review of Systems Review of Systems: All systems reviewed & are unremarkable except as noted in HPI & below Physical Exam Physical Exam: Constitutional - NAD, pleasant HEENT - PERRL, EOMI, she does have mild ptosis of both upper eyelids and mild proptosis; no nystagmus,no JVD heart - irregular, s1 s2, 2/6 MILE LSB lungs - CTA b/l abd - soft NT ND BS+ ext - no edema, pulses 2+ b/l Results & Data Results & Data Vital Signs (Past 12 Hours) Vital Signs Temp Pulse Pulse Resp BP Pulse Ox O2 Del Method 01/24/24 19:29 36.5 C 52 L 16 124/62 96 Room Air 01/24/24 15:45 85 01/24/24 15:39 36.6 C 59 L 18 110/53 L 96 Room Air 01/24/24 11:03 36.5 C 54 L 17 108/50 L 95 Room Air PG Care Time/CCT Total # of Minutes Spent Total Time Spent with Patient: Total time spent is greater than 50% in coordination of care (as documented) at patient's floor/unit and/or counseling patient: Coding Level of Care Code 50850 SUB INP/OBS CARE 2/35MIN Diagnoses Acute right-sided weakness R53.1 Fall W19.XXXA Anemia, unspecified type D64.9 Anemia type: unspecified type Osteoarthritis of right knee M17.11 Mixed hyperlipidemia E78.2 Hyperlipidemia type: mixed hyperlipidemia Bigeminy I49.8 BRETT (acute kidney injury) N17.9 Lumbar canal stenosis M48.061 Dehydration E86.0 Stage 3b chronic kidney disease N18.32 UTI (urinary tract infection) N39.0 Coronary artery disease involving [place] coronary artery of [place] heart without angina pectoris I25.10 Coronary Disease-Associated Artery/Lesion type: [place] artery [place] vs. transplanted heart: [place] heart Associated angina: without angina Primary hypertension I10 Hypertension type: primary hypertension Peripheral polyneuropathy G62.9 Peripheral neuropathy type: polyneuropathy, unspecified Diplopia H53.2 Rhabdomyolysis M62.82 (3) Anemia Anemia type: unspecified type Qualified Code(s): D64.9 - Anemia, unspecified (5) Hyperlipidemia Hyperlipidemia type: mixed hyperlipidemia Qualified Code(s): E78.2 - Mixed hyperlipidemia (12) CAD (coronary artery disease) Coronary Disease-Associated Artery/Lesion type: [place] artery [place] vs. transplanted heart: [place] heart Associated angina: without angina Qualified Code(s): I25.10 - Atherosclerotic heart disease of [place] coronary artery without angina pectoris (13) Hypertension Hypertension type: primary hypertension Qualified Code(s): I10 - Essential (primary) hypertension (14) Peripheral neuropathy Peripheral neuropathy type: polyneuropathy, unspecified Qualified Code(s): G62.9 - Polyneuropathy, unspecified
[2024-01-25 07:13] LABS: Basophils # (auto) 0.03 K/uL (0.00-0.20); Basophils % (auto) 0.3 %; Eosinophils # (auto) 0.42 K/uL (0.00-0.50); Eosinophils % (auto) 4.8 %; Hematocrit (blood only) 28.1 % (37.0-47.0); Hemoglobin 8.9 g/dl (12.0-16.0); Immature Granulocytes # (auto) 0.03 K/uL (0.01-0.20); Immature Granulocytes % (auto) 0.3 %; Lymphocytes % (auto) 19.5 %; Mean Corpuscular Hemoglobin 30.5 pg (25.0-34.0); Mean Corpuscular Hgb Conc 31.7 g/dL (32.0-36.0); Mean Corpuscular Volume 96.2 fL (80.0-100.0); Mean Platelet Volume 11.1 fL (9.4-12.4); Monocytes # (auto) 0.67 K/uL (0.11-0.59); Monocytes % (auto) 7.7 %; Neutrophils # (auto) 5.88 K/uL (1.40-6.50); Neutrophils % (auto) 67.4 %; Platelet Count 211 K/uL (130-400); RDW Coefficient of Variation 13.8 % (11.5-14.5); RDW Standard Deviation 49.3 fL (36.4-46.3); Red Blood Count 2.92 M/uL (4.20-5.40); White Blood Count 8.73 K/ul (4.8-10.8)
[2024-01-25 07:29] LABS: BUN Creatinine Ratio 22.9 (10-20); Calcium 8.6 mg/dl (8.6-10.3); Est GFR (African American) 34.5 ml/min; Est GFR (Non-African American) 29.8 ml/min; Potassium 4.1 mmol/L (3.5-5.1)
--- NOTE | 2024-01-25 08:13 | Orthopedic Progress Note ---
Date of Service January 25, 2024 Assessment & Plan (1) Knee pain: Plan: 1) Right knee pain secondarily to exacerbation of OA with pseudogout Will treat conservatively. To consider cortisone injection if Cx remain negative, can be done as an outpatient. Recommend trial of CONTRERAS injection as an outpatient. If injection no longer effective could try IOVERA as an outpatient. Poor surgical candidate. WBAT with walker RICE PT/OT Continue pain control Follow-up as out patient for cortisone injection if not preformed while in house or to start CONTRERAS injections once approved. 2) Right hip pain secondarily to contusion versus exacerbation of OA, resolved RICE PT/OT Continue pain control Could consider ultrasound guided cortisone injection if not improving Continue care per primary service. (2) Rotator cuff arthropathy of right shoulder: Plan: 3) Right shoulder pain secondarily to contusion versus exacerbation of rotator cuff arthropathy, good foreclosure specialist. RICE PT/OT Continue pain control Could consider cortisone injection, would help with pain, would not improve ROM Patient does not want surgery at this time not a good surgical candidate for reverse TSA Continue care per primary service. Can follow up as an outpatient. Admission and Anticipated Discharge Date Admission Date: January 22, 2024 Subjective Feeling the same. Wants to go home. Physical Exam Physical Exam: PE: RLE: sensation to light touch intact. BCR < 2 sec. Motor gastroc soleus, Tib ant, EHL 5/5. Limited ROM of the knee 20-40 degrees. + Effusion. Healed scar lateral to patella. Band Aide placed laterally, & Lidoderm patch anterior knee. Diffuse tenderness to palpation knee. - log roll hip. + bruising buttock/lateral hip. RUE: 2+ radial pulse. Sensation to light touch intact distally. Motor: median, radial, ulnar, AIN, PIN, and musculocutaneous nerves were intact. ROM shoulder: FF 140 deg; Abduction actively 140 deg. - tenderness to palpation. Results & Data Vital Signs (Past 12 Hours) Vital Signs Temp Pulse Pulse Resp BP Pulse Ox O2 Del Method 01/25/24 02:55 36.3 C L 83 18 133/77 94 Room Air 01/24/24 23:05 36.5 C 52 L 19 129/56 L 94 Room Air 01/24/24 22:00 66 Laboratory Results 01/25/24 01/24/24 Range/Units 06:04 08:00 WBC 8.73 (4.8-10.8) K/ul RBC 2.92 L (4.20-5.40) M/uL Hgb 8.9 L (12.0-16.0) g/dl Hct 28.1 L (37.0-47.0) % MCV 96.2 (80.0-100.0) fL MCH 30.5 (25.0-34.0) pg MCHC 31.7 L (32.0-36.0) g/dL RDW Std Deviation 49.3 H (36.4-46.3) fL RDW Coeff of Elvin 13.8 (11.5-14.5) % Plt Count 211 (130-400) K/uL MPV 11.1 (9.4-12.4) fL Immature Gran % (Auto) 0.3 % Neut % (Auto) 67.4 % Lymph % (Auto) 19.5 % [place] % (Auto) 7.7 % Eos % (Auto) 4.8 % Baso % (Auto) 0.3 % Neut # (Auto) 5.88 (1.40-6.50) K/uL Lymph # (Auto) 1.70 (1.20-3.40) K/uL [place] # (Auto) 0.67 H (0.11-0.59) K/uL Eos # (Auto) 0.42 (0.00-0.50) K/uL Baso # (Auto) 0.03 (0.00-0.20) K/uL Immature Gran # (Auto) 0.03 (0.01-0.20) K/uL Sodium 138 (136-145) mmol/L Potassium 4.1 (3.5-5.1) mmol/L Chloride 104 (98-107) mmol/L Carbon Dioxide 25 (21-32) mmol/L Anion Gap 9 (3-11) BUN 36 H (6-23) mg/dl Creatinine 1.57 H (0.6-1.2) mg/dl Est Cr Clr Drug Dosing 30.0 ml/min Est GFR ( Amer) 34.5 ml/min Est GFR (Non-Af Amer) 29.8 ml/min BUN/Creatinine Ratio 22.9 H (10-20) Glucose 107 H (70-99(Fasting)) mg/dl Calcium 8.6 (8.6-10.3) mg/dl Fld Lyme DNA (PCR) Pending Fluid Comment Synovial Source Right Knee Synovial Color Yellow Synovial Appearance Slightly Hazy Synovial WBC (Auto) 04779 H (0-200) /ul Synovial RBC (Auto) 5000 /uL Synovial Polynuclear % 95.5 % Synovial Mononuclear % 4.5 % Synovial Crystals Synovial Uric Acid Pending Lyme Specimen Source Pending Synovial Crystals Pseudogout Source: Knee,Right OV Order: Ordered: Aer/Zayda Cult/Sm Procedure Result Verified Site Gram Stain Final 01/24/24-1507 Gram Stain Result Moderate WBCs Seen No Organisms Seen Aero/Zayda Cult PENDING
--- NOTE | 2024-01-25 11:15 | Discharge Summary ---
Date of Service January 25, 2024 Admission HPI Per Admitting Provider Anabel is an 83-year-old female with PMH of HTN, HLD, CAD, arthritis, stented coronary artery, acid reflux, trauma, bigeminy, and peripheral neuropathy. She presented on 01/21 for new onset of urinary incontinence and unilateral weakness (R>L). Patient reports that she initially fell when she got up in the middle the night to go to the bathroom on Tuesday night/Tuesday morning. Patient was on the toilet, but fell forward onto the ground and was unable to get up on her own. She stayed on the bathroom ground all night. She denies feeling dizzy prior to falling. No head strike. Eventually she was found in the morning and was helped up. She did not seek medical attention at this time. She then began to notice urinary incontinence that Tuesday/Tuesday, and came into the hospital on Tuesday afternoon. No prior history of stroke. Patient denies slurred speech or facial droop. However she does note unilateral deficits on the right upper and lower extremity. Patient daughter is at the bedside and also reports that she has been having some difficulty with word finding. Additionally, she notes that she had diplopia on Tuesday night/Tuesday morning that has gradually resolved. Patient took her regular morning medications today. She manages her own medicine at home. Only recent change in medication was that she now takes Lyrica for pain. She ambulates with a walker at baseline. She denies recent falls prior to this. No recent injuries to the head or neck. No sick contacts. Patient denies smoking, tobacco use, and recent alcohol use. Patient's vitals are stable at time of admission. ED course: Tramadol 50 mg p.o. ROS: Patient endorses diplopia in both eyes (resolved), R-sided weakness, urinary incontinence since Tuesday night, intermittent burning with urination, and nu mbness/tingling in arms/legs (neuropathy; ongoing). Patient denies fever, chills, night-sweats, dizziness, lightheadedness, CONTRERAS, facial droop, slurred speech, chest pain, SOB, pleuritic CP, cough, abdominal pain, N/V/D, blood in urine/stool, and burning with urination. Principal Diagnosis acute right sided weakness Discharge Exam Constitutional - NAD, pleasant HEENT - PERRL, EOMI, she does have mild ptosis of both upper eyelids and mild proptosis; no nystagmus,no JVD heart - irregular, s1 s2, 2/6 MILE LSB lungs - CTA b/l abd - soft NT ND BS+ ext - no edema, pulses 2+ b/l Discharge Data Allergies Allergy/AdvReac Type Severity Reaction Status Date / Time NSAIDS (Non-Steroidal Allergy Severe EXTREME Verified 01/22/24 16:45 Anti-Inflamma HIVES Penicillins AdvReac Intermediate HIVES Verified 01/22/24 16:45 Biwsvne-RKC-MfO Reductase AdvReac Intermediate WEAKNESS/STIFFNESS Verified 01/22/24 16:45 Inhibitor OF LEG [Egqafso-Zjv-Bpg Reductase MUSCLE Inhibitor] Consultations 01/22/24 17:47 ED Decision to Admit Stat 01/23/24 13:46 Consult Orthopedic Surgery Routine Ordered Studies 01/22/24 15:51 CT cervical spine wo con Stat CT head/brain wo con Stat 01/22/24 18:36 US carotid doppler BI Urgent 01/23/24 00:04 MR angio head wo con Urgent 01/23/24 00:15 MR brain wo con Stat 01/23/24 13:47 CT lumbar spine wo con Routine Hospital Course (1) Acute right-sided weakness: MRI brain NEGATIVE for acute stroke I believe her weakness was generalized as a result of feeling weak from lyrica as well as brewing UTI Her right leg tends to be worse than the left leg for multiple reasons including advanced OA of the right knee, suspected right hip OA, and severe L-spine DDD ELIDIA OVALLES Ortho consult for right knee L-spine CT ordered today - no fractures, but severe spinal stenosis especially at L4-L5 advance activity as tolerated (2) Fall: Patient was on the ground for extended period of time on Tuesday morning after falling/sliding to the ground in her bathroom Fortunately no fractures on extensive imaging of her head, neck, spine, R knee, etc. PTELIDIA has multiple risk factors for falls including advanced OA R knee, advanced L- spine stenosis, hunched over posture from scoliosis, etc. Check B12/B1 levels to r/o nutritional causes of neuropathy Checked TSH : 5.7 (3) Anemia: Chronic; 9.5 on arrival Hb now 8.5 - likely due to blood draws and some dilutional effect from IV fluids (4) Osteoarthritis of right knee: SEVERE OA of right knee x-rays without fracture but the arthritis is bone on bone between her right knee advanced OA as well as advanced l-spine DDD & peripheral neuropathy this all led to right leg weakness and ambulatory difficulty she may benefit from arthrocentesis with drainage of effusion & corticosteroid injection will ask orthopedics to see her in consult unfortunately she has NSAID allergy thus, cont tramadol prn she will have a right knee steroid injection as an outpatient. 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 add lidoderm patches prn schedule tylenol 1gm TID tramadol prn (9) Dehydration: s/p IV fluids with resolution (10) Stage 3b chronic kidney disease: baseline CrCl 30-45 baseline Cr about 1.2 (11) UTI (urinary tract infection): 2nd GNR rocephin 2gm IV daily await final culture likely the cause of her new onset urinary incontinence she has had the last 48 hours (12) CAD (coronary artery disease): follows with [facility] Cardiology just saw Chaitanya WATTS in December 2023 h/o acute [place] - 10/2016 - s/p D1 Drug Eluting Stent continue asa continue metoprolol continue plavix continue losartan has been on various statins in the past but she has been intolerant with myalgias, etc (13) Hypertension: BPs acceptable with home regimen of HCTZ 12.5m daily, losartan 100mg daily, and metoprolol succinate 12.5mg BID (14) Peripheral neuropathy: known issue for some time hands/feet l-spine DDD certainly contributes to leg/feet symptoms previously on gabapentin which per records does not help started on lyrica recently (pharmacy records show 50mg BID dose was filled on January 11) she had excess sedation from the lyrica which may have heightened her fall risk will stop lyrica check B12, B1 and TSH levels in am to be complete (15) Diplopia: had such following her fall over the weekend symptom now resolved MRI brain negative for any acute stroke etiology? side effects from lyrica? visual hallucinations from delirium? nutritional deficiency? (B1, etc) other? post-discharge would advise thorough eye exam (16) Rhabdomyolysis: CPK is in the 200s mild rhabdo only 2nd to fall in her bathroom at home s/p IV fluids Plan \ Total Time Total Time Spent Total Time Spent (In Minutes): 32 Discharge Plan Discharge Items Patient Disposition: Transfer Assisted Fac Reason For Visit: FALL, RIGHT-SIDED DEFICITS, NEW URINARY INCONTINEN Discharge Diagnosis: urinary incontinence Activity: Resume your previous activity Non-emergency contact: Primary Care Provider Call non-emergency contact if: you have any medication questions Follow-up/Referrals: Bonnie Olguin CRNP [Primary Care Provider] - Diet: Regular Addtl Attending Provider Instructions: recommend followup with your PCP in 1-2 weeks Addtl Community Engagement Leader Provider Instructions: Orthopedic Instructions: - Ice to right knee as needed for pain and swelling. -You may weight-bear as tolerated on your right lower extremity. May need a walker or cane to assist with ambulation. -Allowed for full range of motion of her right knee and lower extremity joints. -Call [phone] with any increased pain, swelling or follow-up once discharged from the hospital. -May need a cortisone injection or viscosupplementation as an outpatient. You can call [phone] to schedule an appointment. -Follow-up with Dr. Sherman as needed if knee pain persists. You may also place ice on your shoulder and hip.\\ Pending Studies at Discharge: No Stand-Alone Forms: [facility] Skilled Items Patient informed of condition?: Yes DNR: Yes Discharge Level of Care: Skilled Communicable Disease: No Discharge Prognosis: Stable Lines: None Urinary Catheter: No Medications and DC Order Prescriptions: New docusate sodium 100 mg Capsule 100 mg PO BID Qty: 30 0RF polyethylene glycol 3350 [Miralax] 17 gram Powder In Packet 17 g PO DAILY PRN (Reason: constipation) Qty: 14 0RF lidocaine 5 % Adhesive Patch,Medicated 3 patch transdermal QAM Qty: 30 0RF Rx Instructions: right thigh/ right shoulder/back apply for 12 hours/ then remove for 12 hours Remove Lidoderm Patch 1 ea Not Applicable DAILY@2100 Qty: 30 0RF Continued meclizine 25 mg tablet 25 mg PO TID PRN (Reason: dizziness) Qty: 30 1RF hydrochlorothiazide 12.5 mg tablet 12.5 mg PO QAM Qty: 90 3RF rosuvastatin 5 mg tablet 5 mg PO DAILY Qty: 30 5RF Hold Instructions: not taking it Rx Instructions: stop cholestipol. metoprolol succinate 25 mg tablet extended release 24 hr 12.5 mg PO BID Qty: 180 3RF losartan 100 mg tablet 100 mg PO QAM Qty: 90 3RF acetaminophen [Acetaminophen Extra Strength] 500 mg tablet 500 mg PO Q8H PRN (Reason: Pain) Patient Comments: 500 mg PO Takes 5 tablets throughout the day; Rx Instructions: 500 mg PO Takes 5 tablets throughout the day; coenzyme Q10 [Co Q-10] 200 mg capsule 200 mg PO QAM multivitamin [Multiple Vitamins] tablet 1 tab PO QAM omega-3 acid ethyl esters 1 gram capsule 2 cap PO QAM cetirizine 10 mg tablet 10 mg PO BID aspirin [Adult Low Dose Aspirin] 81 mg tablet,delayed release (DR/EC) 162 mg PO QAM tramadol 50 mg tablet 50 mg PO Q8H PRN (Reason: Back Pain) Qty: 90 1RF hydrocortisone [Proctosol HC] 2.5 % cream with perineal applicator 1 applic [place] DAILY PRN (Reason: hemorrhoids) Qty: 30 1RF albuterol sulfate 90 mcg/actuation Hfa Aerosol Inhaler 2 inh INHALATION QID PRN (Reason: Shortness Of Breath Or Wheezing) omeprazole 20 mg Tablet,Delayed Release (Dr/Ec) 20 mg PO DAILY Discontinued colestipol 1 gram tablet 8 g PO BID Qty: 1440 3RF Hold Instructions: not taking currently pregabalin 50 mg capsule 50 mg PO BID Qty: 60 4RF Rx Instructions: pt aware dose change Discharge Orders: Discharge Order (Routine); Ordered 01/25/24 Ordered By: Prasanth Virgen Admission Data Admit Date/Time: 01/22/24 18:41 Attending Provider: Prasanth Virgen Admit Provider: Cj Teran Primary Care Provider: Bonnie Olguin Other Providers: Cj Teran; Mor Toribio; Floyd Roper at [place] Other Interventions: Discharge Summary Assessment (RN) Last Done: 01/25/24 11:23 Coding Level of Care Code 47198 INP/OBS DISCH >30 MIN Diagnoses Acute right-sided weakness R53.1 Fall W19.XXXA Anemia, unspecified type D64.9 Anemia type: unspecified type Osteoarthritis of right knee M17.11 Mixed hyperlipidemia E78.2 Hyperlipidemia type: mixed hyperlipidemia Bigeminy I49.8 BRETT (acute kidney injury) N17.9 Lumbar canal stenosis M48.061 Dehydration E86.0 Stage 3b chronic kidney disease N18.32 UTI (urinary tract infection) N39.0 Coronary artery disease involving wiyot coronary artery of wiyot heart without angina pectoris I25.10 Associated angina: without angina Coronary Disease-Associated Artery/Lesion type: wiyot artery [place] vs. transplanted heart: wiyot heart Primary hypertension I10 Hypertension type: primary hypertension Peripheral polyneuropathy G62.9 Peripheral neuropathy type: polyneuropathy, unspecified Diplopia H53.2 Rhabdomyolysis M62.82
[2024-01-28 05:43] LABS: Lyme DNA PCR CSF or Synovial Not Detected (Not Detected); Lyme DNA Source SYNOVIAL FLUID
== END 2024-01-25 12:52 | DRG 690 ==
LOC: ED 15:42 → EDINP 18:41 → SUATTDRO 18:41 → 2S 20:23